=== PATIENT | male | born 1945 | race Caucasian/White ===

== ENCOUNTER 2016-08-26 17:04 | Observation (INO) | payer MEDICARE ==
[~2016-08-26] VITALS: Ht 182.9 cm; Wt 102.5 kg
[~2016-08-26 17:04] MED LIST: ADVAIR 250/501 DISK INH; DOXYCYCLINE HY100 M2 PO; HYDROCODONE-APA1 TAB PO; IPRAT-ALBUT 0.5-3 ML UPD; MEDROL DOSE PACK4 MG PO; PROAIR HFA8.5 GM INH; PROVENTIL/2.5 MG/3 M INH
[2016-08-26 17:50] VITALS: BP 135/59; BMI 30.7
[2016-08-26 19:03] LABS: BASOPHILS 0.1 % (0.0-2.0); EOSINOPHILS 1.6 % (0-7); HEMATOCRIT 37.5 % (42.0-54.0); HEMOGLOBIN 12.1 g/dL (13.5-17.5); IMMATURE GRANULOCYTES 0.4 % (0-5); LYMPHOCYTES 31.6 % (15-50); MCH 33.1 pg (26.0-34.0); MCHC 32.3 g/dL (31.0-37.0); MCV 102.5 fL (80.0-100.0); MEAN PLATELET VOLUME 10.9 fL (7.4-10.4); MONOCYTES 10.1 % (2-11); NEUTROPHILS 56.2 % (40-80); PLATELET COUNT 150 10x3/uL (130-400); RBC 3.66 10x6/uL (4.20-6.10); RDW 12.7 % (11.5-14.5); WBC 7.7 10x3/uL (4.8-10.8)
--- NOTE | 2016-08-26 19:23 | NUR ---
RECEIVED REPORT, IV-LAC-SL, O2-3L, DRESSING TO BOTTOM, BED IS LOW, SRX2, CALL LIGHT IN REACH, WILL CONTINUE TO MONITOR
[2016-08-26 19:50] LABS: ALBUMIN 3.3 g/dL (3.4-5.0); ALKALINE PHOSPHATASE 61 U/L (46-116); ALT (SGPT) 18 U/L (10-68); BILIRUBIN - TOTAL 0.23 mg/dL (0.2-1.3); CALC OSMOLALITY 284 mosm/kg (275-300); CARBON DIOXIDE 34.7 mmol/L (21.0-32.0); CHLORIDE - SERUM 103 mmol/L (98-107); CREATININE - SERUM 0.9 mg/dL (0.6-1.3); GLUCOSE 168 mg/dL (74-106); POTASSIUM - SERUM 3.6 mmol/L (3.5-5.1); PROTEIN - SERUM 6.5 g/dL (6.4-8.2); SODIUM 142 mmol/L (136-145); UREA NITROGEN 6 mg/dL (7-18); eGFR NON AFRICAN AMERICAN 89 mL/min (90-120)
[2016-08-26 20:00] VITALS: BP 119/54
[2016-08-26] MEDS ORDERED: K-DUR20 MEQ PO (21:33)
[2016-08-26] MEDS ORDERED: FUROSEMIDE40 MG PO (21:33)
[2016-08-26] MEDS ORDERED: CARDIZEM30 MG PO (21:34)
[2016-08-26] MEDS ORDERED: VITAMIN B-150 MG PO (21:35)
[2016-08-26] MEDS ORDERED: FIBERCON625 MG PO (21:36)
--- NOTE | 2016-08-27 00:27 | NUR ---
CUTLET MAKER PORK AT BEDSIDE FOR VS, NEEDS ADDRESSED. CALL LIGHT IN REACH. WILL CONT TO MONITOR.
[2016-08-27 02:00] VITALS: BP 111/54
[2016-08-27 04:00] VITALS: BP 136/78
--- NOTE | 2016-08-27 04:03 | NUR ---
SLEEPING WITH OWN C-PAP ON, BED IS LOW, SRX2, CALL LIGHT IN REACH, WILL CONTINUE TO MONTOR
--- NOTE | 2016-08-27 07:37 | NUR ---
RECEIVED PT REPORT. NO OTHER NEEDS AT THIS TIME. WILL CONTINUE PLAN OF CARE. NO OTHER NEEDS AT THIS TIME. WILL CONTINUE TO MONITOR.
[2016-08-27 08:39] VITALS: BP 122/53
--- NOTE | 2016-08-27 10:36 | NUR ---
PT IS ALERT. ASSESSMENT DONE PER FLOWSHEET. NO CO PAIN AT THIS TIME. WILL CONTINUE TO MONITOR.
[2016-08-27 12:09] VITALS: BP 138/65
[2016-08-27 13:49] VITALS: Ht 182.9 cm; Wt 102.5 kg
[2016-08-27 14:38] LABS: HEMOGLOBIN A1C 6.1 % (4.8-6.0)
[2016-08-27] MEDS ORDERED: FUROSEMIDE40 MG PO (15:15)
[2016-08-27 15:42] VITALS: BP 132/61
--- NOTE | 2016-08-28 10:48 | DS ---
PATIENT:KAREN VALLE SR :47 MEDICAL RECORD: [id number] DISCHARGE SUMMARY ADMISSION DATE: 08/26/16 DISCHARGE DATE: 08/27/16 DATE OF ADMISSION: 08/26/2016 DATE OF DISCHARGE: 08/27/2016 ADMITTING DIAGNOSES: Acute exacerbation of chronic obstructive pulmonary disease, nicotine dependence with withdrawal, anemia of unknown etiology, hyperglycemia, acute obstructive sleep apnea, congestive heart failure. HOSPITAL COURSE: This is a gentleman who was a direct admit from Dr. Alvarez's office with diagnoses as outlined above. Details are well-outlined in the history of the present illness, H&P. All events, lab procedures, diagnostic testing are well documented in the records. The patient was admitted. Cardiology consulted. Echo ordered. He was started on IV Lasix twice a day. He apparently had been out of his p.o. Lasix at home. Overall, he is improved. He is ambulating. His shortness of breath is at baseline. His leg edema has improved. He wants to go home. His proBNP 117. He had some degree of hyperglycemia when he came in. He is not diabetic. Blood sugars ranging 128-168. We did A1c, it was 6.1, none of these sugars were fasting. OTHER LABORATORY DATA: Show white count 7.7, hemoglobin 12, platelets 150, albumin is 3.3, otherwise LFTs are unremarkable. Sodium 142, potassium 3.6, chloride 103, CO2 of 34.7, BUN 6, serum creatinine 0.9. He is stable for dismissal home. We had given him a handwritten script for Lasix 40 mg p.o. b.i.d. We have been instructed him and his significant other to go straight to the pharmacy and get this filled and to be compliant with his scripts. He will follow up with Dr. Alvarez in a week. Diagnoses are the same as above. Greater than 30 minutes was spent on this discharge. TRANSINT:[id number] Voice Confirmation ID: [id number] DOCUMENT ID: [id number] Dictated By: MAYELIN GUERRERO RN I have interviewed/examined the above patient and agree with these documented findings. OMAYRA HUSSEIN DO at 1048 at 1515 CC: [id number] DICTATION DATE: 08/27/16 1548 CLAIMS ADJUSTER: 08/28/16 0307 DIS IN 08/27/16 [facility] [address] [id number]
--- NOTE | 2016-09-10 14:37 | EC ---
PATIENT:KAREN VALLE SR DATE OF SERVICE: 08/26/16 SEX: M MEDICAL RECORD: [id number] DATE OF : 47 LOCATION:D.M2 D.213 AGE OF PATIENT: 71 ADMISSION DATE: 08/26/16 REFERRING PHYSICIAN: INTERPRETING PHYSICIAN: TITO BLACKWELL MD ECHOCARDIOGRAM REPORT ECHO CHARGES 4 ECHO COMPLETE CLINICAL DIAGNOSIS: CHF ECHOCARDIOGRAPHIC MEASUREMENTS (adult normal given) AC root (d.<3.7cm) 3.8 LV Septum d (<1.2 cm> 1.5 Valve Excursion 1.7 LV Septum (systole) 1.8 Left Atria (s.<4.0cm> 3.8 LVPW d(<1.2cm) 1.6 RV (d.<2.3cm) 4.6 LVPW (sytole) 1.8 LV diastole(<5.6CM) 5.3 MV E-F(>70mm/sec) LV systole 3.2 LVOT Diameter 1.9 MV exc.(>10mm) 1.9 Est.ejection fraction (50-75%) Pericardial Effusion N DOPPLER: LVIT A 102 E 92.0 LA RVSP 25 LVOT 96 AOP1/2T Asc. Ao 147 RVOT 89 RA PA 151 AV Gradient Peak 8.7 AV Mean 4.09 AV Area 1.6 MV Gradient Peak 5.8 MV Mean 1.70 MV Area COMMENTS: Child Care: Susanne RIOS Mud Boss:1 Dr. Blackwell TAPE# PACS DATE OF SERVICE: 08/27/2016 FINDINGS: 1. Left ventricular chamber size is within normal limits. Left ventricular systolic function is normal. Overall ejection fraction estimated at 55%. 2. Left atrium, right atrium, and right ventricle chamber sizes are within normal limits. 3. Valvular structures have normal structure and motion. 4. Doppler interrogation reveals mild mitral regurgitation, mild tricuspid regurgitation, no other valvular insufficiency or stenosis and pulmonary ECHOCARDIOGRAM REPORT [id number] KAREN VALLE SR systolic pressure is normal, estimated at 25 mmHg. 5. No evidence of pericardial effusion or left ventricular thrombus. 6. Shortness of breath is not secondary to congestive heart failure. TRANSINT:[id number] Voice Confirmation ID: [id number] DOCUMENT ID: [id number] TITO BLACKWELL MD at 1437 CC: [id number] DICTATION DATE: 08/27/16 1222 MARKETING RECRUITER: 08/27/16 1454 DIS IN 08/27/[address] [facility] [address] [id number]
== END 2016-08-27 18:24 | disposition home or self-care (01) ==
LOC: D.M2 17:04 → OBSVTIME 17:05 → D.M2 08-27 18:24
PROVIDERS: Family Medicine; ADMIT Family Medicine
DX: J44.1 Chronic obstructive pulmonary disease with (acute) exacerbation (principal); I50.9 Heart failure, unspecified; F17.203 Nicotine dependence unspecified, with withdrawal; D64.9 Anemia, unspecified; R73.9 Hyperglycemia, unspecified; G47.33 Obstructive sleep apnea (adult) (pediatric)

== ENCOUNTER 2016-10-24 23:11 | Inpatient (IN) | payer MEDICARE ==
[~2016-10-24] VITALS: Ht 182.9 cm; Wt 98.0 kg
--- NOTE | ~2016-10-24 | EC ---
PATIENT:KAREN VALLE SR DATE OF SERVICE: 10/24/16 SEX: M MEDICAL RECORD: [id number] DATE OF : 47 LOCATION:D.MS Dunn220 AGE OF PATIENT: 71 ADMISSION DATE: 10/24/16 REFERRING PHYSICIAN: INTERPRETING PHYSICIAN: SANGEETA DOTSON M.D. ECHOCARDIOGRAM REPORT ECHO CHARGES 5 ECHO LIMITED CLINICAL DIAGNOSIS: CHF AND EDEMA ( LAST ECHO ON 09-08-16) ECHOCARDIOGRAPHIC MEASUREMENTS (adult normal given) AC root (d.<3.7cm) LV Septum d (<1.2 cm> 1.4 Valve Excursion LV Septum (systole) 1.6 Left Atria (s.<4.0cm> LVPW d(<1.2cm) 1.6 RV (d.<2.3cm) LVPW (sytole) 1.9 LV diastole(<5.6CM) 4.5 MV E-F(>70mm/sec) LV systole 2.6 LVOT Diameter MV exc.(>10mm) Est.ejection fraction (50-75%) Pericardial Effusion N DOPPLER: LVIT A E LA RVSP LVOT AOP1/2T Asc. Ao RVOT RA PA AV Gradient Peak AV Mean AV Area MV Gradient Peak MV Mean MV Area COMMENTS: Php Software Engineer: Susanne RIOS Curriculum Specialist:2 Dr. Dotson TAPE# PACS DATE OF SERVICE: 10/25/2016 REFERRING PHYSICIAN: Jose L Henry MD. INDICATION: CHF. This is a limited study. The previous echo was performed at the end of August. This is performed to evaluate ejection fraction. DESCRIPTION: Left ventricle demonstrates left ventricular hypertrophy. No ECHOCARDIOGRAM REPORT [id number] KAREN VALLE SR regional wall motion abnormalities are noted. His ejection fraction is 55%. There is no evidence of any ventricular dilation. Right ventricle appears normal size and function. I do not see a pericardial effusion. IMPRESSION: Left ventricular hypertrophy with preserved ejection of 55% with no wall motion abnormalities noted. TRANSINT:[id number] Voice Confirmation ID: [id number] DOCUMENT ID: [id number] SANGEETA DOTSON M.D. CC: [id number] DICTATION DATE: 10/25/16 1435 DISABILITY REPRESENTATIVE: 10/25/16 1632 ADM IN [id number] [place] [address]
--- NOTE | ~2016-10-24 | CN ---
PATIENT NAME:KAREN BIRMINGHAM MEDICAL RECORD: [id number] : 47 LOCATION:D.MS Dunn2203 ADMIT DATE: 10/24/16 ACCOUNT: [id number] CONSULTING PHYSICIAN: CASSI MORTENSEN MD REFERRING PHYSICIAN: JOSE L HENRY MD DATE OF CONSULTATION: 10/25/2016 REQUESTING PHYSICIAN: Jose L Henry MD. REASON FOR CONSULTATION: Acute exacerbation of chronic obstructive pulmonary disease and shortness of breath. HISTORY OF PRESENT ILLNESS: Mr. Birmingham is a 71-year-old gentleman who has a history of COPD and obstructive sleep apnea. According to the patient, he is sick for the last few days with worsening shortness of breath and admitted to the ER yesterday. The patient now is awake and alert, but he is very breathless. He is on BiPAP. The patient is still everyday smoker. He has cough without much sputum production. He does not hear himself wheezing. REVIEW OF SYSTEMS: Mainly in the history of present illness. PAST MEDICAL HISTORY: 1. COPD. 2. Asthma. 3. History of pneumonia. 4. History of obstructive sleep apnea, on BiPAP. 5. History of anemia. 6. Chronic hypoxic respiratory failure. PAST SURGICAL HISTORY: He had appendectomy. ALLERGIES: There are no known drug allergies. PRESENT MEDICATIONS: On [facility] was reviewed. PERSONAL AND SOCIAL HISTORY: The patient is still everyday smoker. He is a nondrinker. FAMILY HISTORY: Noncontributory. PHYSICAL EXAMINATION: GENERAL: The patient is lying comfortably in bed. He is not in acute distress. VITAL SIGNS: The blood pressure is 149/88, pulse is 88, respiration is 16, temperature is 97.2, SpO2 is 97% on BiPAP, 40% oxygen. HEENT: Conjunctivae pink, sclerae nonicteric. NECK: Supple. No JVD. CHEST: The chest excursion is minimal on both sides. There is no wheeze, no rales. HEART: Rhythm regular, normal sound, no murmur. ABDOMEN: Soft. Bowel sounds present. No hepatosplenomegaly. RECTAL: Deferred. EXTREMITIES: No cyanosis, no clubbing. There is 1+ pedal edema. SKIN: Warm, normal turgor. CENTRAL NERVOUS SYSTEM: The patient is awake and alert. There are no obvious cranial nerve abnormalities. The gait was not tested. CONSULT REPORT [id number] KAREN BIRMINGHAM CHEST RADIOGRAPH: There is hyperinflation, no acute infiltrate. LABORATORY DATA: CBC: The WBC is 11.4, hemoglobin 13.9, hematocrit 42.4, the platelet count is 154. Chemistry: Sodium 141, potassium is 4, bicarbonate is 40.3, BUN is 14, creatinine 0.9, glucose 145. ABG: The pH is 7.39, pCO2 is 60, pO2 is 76, bicarbonate is 36.3. IMPRESSION: 1. Aaxzw-zf-ixnkafk hypoxic hypercapnic respiratory failure. 2. Respiratory acidosis with compensated metabolic alkalosis. 3. Acute exacerbation of chronic obstructive pulmonary disease. 4. Tracheobronchitis. 5. Obstructive sleep apnea. 6. Leukocytosis. 7. Tobacco dependence syndrome. RECOMMENDATION: 1. Methylprednisolone IV, albuterol/ipratropium nebulizer. 2. Brovana, budesonide nebulizer. 3. Start him on Diamox. Continue Levaquin IV. Follow up on labs, chest radiograph, check the alpha-1 level, check the cardiac echo. Dr. Henry, once again, thank you for involving me in the care of Mr. Birmingham. TRANSINT:[id number] Voice Confirmation ID: [id number] DOCUMENT ID: [id number] CASSI MORTENSEN MD CC: SEKOU AVELAR MD [id number] DICTATION DATE: 10/25/16 1525 PASTER OPERATOR: 10/26/16 0138 ADM IN [facility] [address] [place] [address]
[~2016-10-24 23:11] MED LIST changes: +CARDIZEM30 MG PO; +FIBERCON625 MG PO; +FUROSEMIDE40 MG PO; +K-DUR20 MEQ PO; +VITAMIN B-150 MG PO
[2016-10-24 23:37] LABS: BASOPHILS 0.1 % (0-2); EOSINOPHILS 1.8 % (0-7); HEMATOCRIT 42.4 % (42.0-54.0); HEMOGLOBIN 13.9 g/dL (13.5-17.5); IMMATURE GRANULOCYTES 0.4 % (0-5); MCH 33.2 pg (26.0-34.0); MCHC 32.8 g/dL (31.0-37.0); MCV 101.2 fL (80.0-100.0); MEAN PLATELET VOLUME 11.2 fL (7.4-10.4); MONOCYTES 10.5 % (2-11); NEUTROPHILS 68.2 % (40-80); PLATELET COUNT 154 10x3/uL (130-400); RBC 4.19 10x6/uL (4.20-6.10); RDW 12.5 % (11.5-14.5); WBC 11.4 10x3/uL (4.8-10.8)
[2016-10-25] LABS: ALBUMIN 3.7 g/dL (3.4-5.0); ALKALINE PHOSPHATASE 91 U/L (46-116); ALT (SGPT) 30 U/L (10-68); BILIRUBIN - TOTAL 0.45 mg/dL (0.2-1.3); CALC OSMOLALITY 284 mosm/kg (275-300); CALCIUM 9.2 mg/dL (8.5-10.1); CHLORIDE - SERUM 97 mmol/L (98-107); CREATINE KINASE 65 UL (21-232); CREATININE - SERUM 0.9 mg/dL (0.6-1.3); GLUCOSE 145 mg/dL (74-106); PRO BNP 70 pg/mL (0-125); PROTEIN - SERUM 7.3 g/dL (6.4-8.2); SODIUM 141 mmol/L (136-145); UREA NITROGEN 14 mg/dL (7-18); eGFR NON AFRICAN AMERICAN 89 mL/min (90-120)
[2016-10-25 00:01] LABS: CARBON DIOXIDE 40.3 mmol/L (21.0-32.0); TROPONIN-I < 0.017 ng/mL (0.000-0.060)
--- NOTE | 2016-10-25 01:00 | NUR ---
RECEIVED PT TO FLOOR FROM ER VIA STRETCHER. BREATHING IS LABORED AND DYSPNEIC WITH MINIMAL EXERTION. RT SETTING UP BIPAP NOW. COMPLETE ASSESSMENT PER FLOWSHEET. REVIEWED HISTORY AND HOME MEDS. GAVE PT SANDWICH AND SODA. NO OTHER NEEDS. WILL REASSESS AND CONTINUE TO MONITOR.
[2016-10-25 01:42] VITALS: BP 142/70; BMI 29.3
[2016-10-25 04:00] VITALS: BP 154/79
--- NOTE | 2016-10-25 08:07 | NUR ---
AWAKE AND ALERT. ORIENTED X3. NO C/O THIS AM. LUNGS WITH WHEEZES THROUGHOUT LUNG MORFIN. WET COUGH NOTED. SKIN IS INTACT WITHOUT REDNESS. SL TO LEFT HAND IS PATENT WITHOUT REDNESS AT INSERTION SITE. UP TO BR WITH MIN ASSIST OF ONE. VOIDED CLEAR YELLOW URINE WITHOUT DIFFICULTY. SITTING UP ON SIDE OF BED EATING BREAKFAST. DENIES NEEDS.
[2016-10-25 09:04] VITALS: BP 149/88
[2016-10-25 10:40] LABS: BASOPHILS 0.2 % (0-2); EOSINOPHILS 0 % (0-7); HEMATOCRIT 42.4 % (42.0-54.0); HEMOGLOBIN 13.8 g/dL (13.5-17.5); IMMATURE GRANULOCYTES 0.3 % (0-5); LYMPHOCYTES 12.2 % (15-50); MCHC 32.5 g/dL (31.0-37.0); MCV 101.4 fL (80.0-100.0); MEAN PLATELET VOLUME 11.5 fL (7.4-10.4); MONOCYTES 0.8 % (2-11); NEUTROPHILS 86.5 % (40-80); PLATELET COUNT 140 10x3/uL (130-400); RBC 4.18 10x6/uL (4.20-6.10); RDW 12.1 % (11.5-14.5)
[2016-10-25 10:46] LABS: WBC 6.3 10x3/uL (4.8-10.8)
--- NOTE | 2016-10-25 10:46 | NUR ---
ATE ALL OF BREAKFAST. RESTING QUIETLY IN BED WITH EYES CLOSED.
[2016-10-25 11:40] VITALS: BP 131/68
[2016-10-25 12:53] VITALS: Ht 182.9 cm; Wt 98.0 kg
[2016-10-25 15:52] VITALS: BP 144/78
--- NOTE | 2016-10-25 18:39 | NUR ---
ATE ALMOST ALL OF SUPPER TRAY. NO C/O AT THIS TIME. DENIES NEEDS.
--- NOTE | 2016-10-25 19:40 | NUR ---
ASSISTED THE PATIENT TO THE RESTROOM. PATIENT WAS STABLE AND SHOWED NO SIGNS OF WEAKNESS IN HIS EXTREMITIES. PATIENT DENIES OTHER NEEDS AT THIS TIME. BED IN LOWEST POSTION AND CALL LIGHT WITHIN REACH. ENCOURAGED THE PATIENT TO CALL IF HE HAS FURTHER NEEDS.
[2016-10-25 20:00] VITALS: BP 140/71
[2016-10-26] VITALS: BP 137/69
[2016-10-26 04:00] VITALS: BP 136/65
[2016-10-26 07:00] LABS: BASOPHILS 0.1 % (0-2); EOSINOPHILS 0 % (0-7); HEMATOCRIT 43.9 % (42.0-54.0); HEMOGLOBIN 13.8 g/dL (13.5-17.5); IMMATURE GRANULOCYTES 0.5 % (0-5); LYMPHOCYTES 7.8 % (15-50); MCH 32.3 pg (26.0-34.0); MCHC 31.4 g/dL (31.0-37.0); MCV 102.8 fL (80.0-100.0); NEUTROPHILS 87.6 % (40-80); RBC 4.27 10x6/uL (4.20-6.10); RDW 12.3 % (11.5-14.5)
[2016-10-26 07:05] LABS: PLATELET COUNT 177 10x3/uL (130-400); WBC 14.4 10x3/uL (4.8-10.8)
[2016-10-26 07:23] LABS: ALBUMIN 3.5 g/dL (3.4-5.0); ANION GAP 5.1 mmol/L (8-16); BILIRUBIN - TOTAL 0.21 mg/dL (0.2-1.3); CALCIUM 9.6 mg/dL (8.5-10.1); CARBON DIOXIDE 36.5 mmol/L (21.0-32.0); POTASSIUM - SERUM 3.6 mmol/L (3.5-5.1); PROTEIN - SERUM 7.9 g/dL (6.4-8.2)
[2016-10-26 07:24] LABS: CREATININE - SERUM 1.2 mg/dL (0.6-1.3)
[2016-10-26 07:32] VITALS: BP 121/71
--- NOTE | 2016-10-26 07:59 | NUR ---
AWAKE AND ALERT. ORIENTED X3. NO C/O THIS AM. WANTS TO GO HOME. LUNGS WITH WHEEZES THROUGHOUT AND DIMINISHED. PRODUCTIVE COUGH NOTED WITH CLEAR YELLOWISH SPUTUM. SKIN IS INTACT WITHOUT REDNESS EXCEPT SMALL WOUND TO RIGHT BUTTOCK WHICH HAS A DRY INTACT DRESSING IN PLACE. SL TO LEFT HAND PATENT WITHOUT REDNESS AT INSERTION SITE. DENIES NEEDS AT THIS TIME.
--- NOTE | 2016-10-26 10:17 | NUR ---
UP IN HALLWAY PER SELF. VERY ANXIOUS TO GO HOME.
[2016-10-26 11:20] VITALS: BP 116/55
--- NOTE | 2016-10-26 12:15 | NUR ---
LUNCH SERVED IN ROOM. ATE ALL OF MEAL. DENIES NEEDS. REQUESTED AND GIVEN A CUP OF COFFEE.
[2016-10-26 15:26] VITALS: BP 125/67
--- NOTE | 2016-10-26 15:53 | NUR ---
RESTING QUIETLY IN BED. NO C/O VOICED.
--- NOTE | 2016-10-26 16:21 | NUR ---
DRESSING TO RIGHT BUTTOCK CHANGED. WOUND IS CLEAN AND NON ODOROUS WITHOUT SIGNS OF INFECTION. APPROXIMATELY 2 INCHES DEEP AND LESS THAN 1 CM WIDE.
--- NOTE | 2016-10-26 18:04 | NUR ---
ATE ALL OF SUPPER. DENIES NEEDS. NO CHANGES NOTED.
--- NOTE | 2016-10-26 19:53 | NUR ---
BROUGHT PATIENT COFFEE PER HIS REQUEST. PATIENT DENIES OTHER NEEDS AT THIS TIME AND SHOWS NO SIGNS OF VISIBLE DISTRESS. PATIENT'S BED IN LOWEST POSITION AND CALL LIGHT WITHIN REACH. ENCOURAGED THE PATIENT TO CALL IF HE HAS FURTHER NEEDS.
[2016-10-26 20:00] VITALS: BP 149/58
[2016-10-27] VITALS: BP 132/65
[2016-10-27 04:00] VITALS: BP 139/58
[2016-10-27 05:29] LABS: BASOPHILS 0.1 % (0-2); EOSINOPHILS 0.1 % (0-7); HEMATOCRIT 40.1 % (42.0-54.0); HEMOGLOBIN 12.9 g/dL (13.5-17.5); IMMATURE GRANULOCYTES 0.9 % (0-5); LYMPHOCYTES 9.1 % (15-50); MCH 32.7 pg (26.0-34.0); MCHC 32.2 g/dL (31.0-37.0); MCV 101.5 fL (80.0-100.0); MEAN PLATELET VOLUME 11.8 fL (7.4-10.4); MONOCYTES 8.3 % (2-11); NEUTROPHILS 81.5 % (40-80); PLATELET COUNT 156 10x3/uL (130-400); RBC 3.95 10x6/uL (4.20-6.10); RDW 12.2 % (11.5-14.5)
[2016-10-27 05:49] LABS: ALBUMIN 3.1 g/dL (3.4-5.0); ALKALINE PHOSPHATASE 74 U/L (46-116); ALT (SGPT) 33 U/L (10-68); CALC OSMOLALITY 292 mosm/kg (275-300); CALCIUM 8.9 mg/dL (8.5-10.1); CARBON DIOXIDE 36.5 mmol/L (21.0-32.0); CHLORIDE - SERUM 103 mmol/L (98-107); GLUCOSE 210 mg/dL (74-106); POTASSIUM - SERUM 3.8 mmol/L (3.5-5.1); PROTEIN - SERUM 6.3 g/dL (6.4-8.2); SODIUM 141 mmol/L (136-145); UREA NITROGEN 29 mg/dL (7-18); eGFR NON AFRICAN AMERICAN 78 mL/min (90-120)
--- NOTE | 2016-10-27 07:51 | NUR ---
AWAKE AND ALERT. ORIENTED X3. NO C/O THIS AM. LUNGS HAVE CRACKLES AND WHEEZES THROUGHOUT LUNG MORFIN, PRODUCTIVE COUGH NOTED. SKIN IS INTACT WITHOUT REDNESS EXCEPT WOUND TO RIGHT BUTTOCK WHICH HAS A DRY INTACT DRESSING IN PLACE. SL TO LEFT HAND PATENT WITHOUT REDNESS AT INSERTION SITE. DENIES NEEDS.
[2016-10-27 09:06] VITALS: BP 138/60
--- NOTE | 2016-10-27 10:18 | NUR ---
ATE ALL OF BREAKFAST. DENIES NEEDS. RESTING QUIETLY IN BED.
--- NOTE | 2016-10-27 11:30 | NUR ---
UP TO SHOWER WITH ASSIST OF SIGNIFICANT OTHER. DRESSING TO RIGHT BUTTOCK CHANGED WELL.
[2016-10-27 11:48] VITALS: BP 121/61
--- NOTE | 2016-10-27 13:00 | NUR ---
ATE ALL OF LUNCH. DENIES NEEDS.
--- NOTE | 2016-10-27 14:45 | NUR ---
REQUESTED MORE FOOD. GIVEN PB AND GHRAMH CRACKERS. WILL MONITOR.
[2016-10-27 16:44] VITALS: BP 140/64
--- NOTE | 2016-10-27 17:14 | NUR ---
SITTING UP ON SIDE OF BED EATING. NO C/O AT THIS TIME. NO CHANGES NOTED. DENIES NEEDS.
[2016-10-27 20:00] VITALS: BP 113/60
--- NOTE | 2016-10-27 20:48 | NUR ---
PATIENT RESTING IN BED AND DENIES NEEDS AT THIS TIME. ADMINISTERED MEDS PER ORDERS. BED IN LOWEST POSITION AND CALL LIGHT WITHIN REACH. ENCOURAGED THE PATIENT TO CALL IF HE HAS NEEDS.
[2016-10-28 04:00] VITALS: BP 133/65
[2016-10-28 05:25] LABS: BASOPHILS 0.2 % (0-2); EOSINOPHILS 0 % (0-7); HEMATOCRIT 42.2 % (42.0-54.0); HEMOGLOBIN 13.8 g/dL (13.5-17.5); IMMATURE GRANULOCYTES 2.8 % (0-5); LYMPHOCYTES 8.3 % (15-50); MCH 33.4 pg (26.0-34.0); MCHC 32.7 g/dL (31.0-37.0); MCV 102.2 fL (80.0-100.0); MEAN PLATELET VOLUME 11.1 fL (7.4-10.4); MONOCYTES 11.5 % (2-11); NEUTROPHILS 77.2 % (40-80); PLATELET COUNT 150 10x3/uL (130-400); RBC 4.13 10x6/uL (4.20-6.10); RDW 12.2 % (11.5-14.5)
[2016-10-28 05:57] LABS: ALBUMIN 3.1 g/dL (3.4-5.0); ANION GAP 5.2 mmol/L (8-16); BILIRUBIN - TOTAL 0.18 mg/dL (0.2-1.3); CALCIUM 9.2 mg/dL (8.5-10.1); CARBON DIOXIDE 35.9 mmol/L (21.0-32.0); CREATININE - SERUM 1.1 mg/dL (0.6-1.3); POTASSIUM - SERUM 4.1 mmol/L (3.5-5.1); PROTEIN - SERUM 6.8 g/dL (6.4-8.2)
--- NOTE | 2016-10-28 07:35 | NUR ---
PATIENT IS AWAKE AND ALERT, SITTING UP ON THE SIDE OF HIS BED RECEIVING HIS BREATHING TREATMENT VIA MASK WITH VAPOR ACTIVE. HE HAS THE PALM OF LEFT HAND ON BED, RIGHT PALM ON HIS LEFT KNEE, HEAD HUNG. WHEN ASKED IF HE HAS ANY NEEDS, HE SHOOK HEAD. CALL LIGHT IS WITHIN HIS REACH. DOOR LEFT OPEN.
[2016-10-28 08:08] VITALS: BP 130/79
[2016-10-28] MEDS ORDERED: IPRAT-ALBUT 0.5-3 ML UPD (09:38)
[2016-10-28] MEDS ORDERED: LEVAQUIN750 MG PO (09:38)
[2016-10-28] MEDS ORDERED: BROVANA15 MCG/2 M INH (09:38)
[2016-10-28] MEDS ORDERED: PREDNISONE10 MG PO (09:39)
[2016-10-28] MEDS ORDERED: PULMICORT0.5 MG/21 UPD (09:39)
[2016-10-28] MEDS ORDERED: FLORAJEN3 CAPS460 MG PO (09:39)
[2016-10-28] MEDS ORDERED: DIAMOX250 MG PO (09:41)
[2016-10-28] MEDS ORDERED: DAKIN'S 0.125%480 M1 TOPICAL (09:42)
[2016-10-28 11:27] VITALS: BP 134/76
--- NOTE | 2016-10-28 12:57 | NUR ---
* Is the patient Alert and Oriented? Yes 0 * PCP Dr. Alvarez 0 * Pharmacy [facility] 0 * Preadmission Environment Home with Family 0 * ADLs Independent 0 * Equipment Nebulizer Oxygen Rolling Walker 0 * List name and contact numbers for known caregivers / representatives who currently or will assist patient after discharge: Kendell Peters 0 * Additional services required to return to the preadmission environment? Yes 0 * Can the patient safely return to the preadmission environment? Yes 0 * Has this patient been hospitalized within the prior 30 days at any hospital? No
--- NOTE | 2016-10-28 13:10 | NUR ---
10/28/2016 13:10 DCP: Discharge Planning Patient Name: KAREN VALLE Admission Status: ER Accout number: [id number] Admission Date: 10-24-2016 : 1945 Admission Diagnosis:CHRONIC OBSTRUCTIVE PULMONARY DISEASE W (ACUTE) EXACERB Attending: PRASHANT Current LOS: 4 Anticipated DC Date: 10-28-2016 Planned Disposition: Home Primary Insurance: [employer] CHOICE PPO MCR ADVANT Discharge Planning Comments: DC order rec'd. CM met with patient to assess dc plans/needs. Patient states he lives at home with his fianc Lorraine. He has a walker, nebulizer & home O2. He states he has had home health services in the past. He is refusing home health services at discharge. He & Lorraine state they can take care of his wound care at home & his medications. Lorraine states she has provided his wound care for 2 years. Anticipate dc this afternoon. Occupational Health And Safety Officer: Gayathri Dowling
--- NOTE | 2016-10-28 13:16 | NUR ---
DISCUSSED DISCHARGE INSTRUCTIONS WITH PATIENT AND HIS SPOUSE. SHE STATES THAT SHE HAS BEEN CHANGING HIS DRESSING SINCE [place]. DISCUSSED MEDICATIONS AND FOLLOW UP APTS. HE VOICES UNDERSTANDING OF DIECTIONS. SPOUSE HAS O2 IN THE CAR FOR TRANSPORTATION HOME.
== END 2016-10-28 13:20 | disposition home or self-care (01) | DRG 191 ==
LOC: D.ER 23:11 → D.MS 23:56
PROVIDERS: Emergency Medicine; ADMIT Emergency Medicine
DX: J44.1 Chronic obstructive pulmonary disease with (acute) exacerbation (principal); F17.203 Nicotine dependence unspecified, with withdrawal; R09.02 Hypoxemia; Z99.81 Dependence on supplemental oxygen; G47.33 Obstructive sleep apnea (adult) (pediatric); D64.9 Anemia, unspecified; I50.9 Heart failure, unspecified; J44.0 Chronic obstructive pulmonary disease with (acute) lower respiratory infection

== ENCOUNTER 2016-11-19 03:05 | Inpatient (IN) | payer MEDICARE ==
[~2016-11-19] VITALS: Ht 182.9 cm; Wt 102.3 kg
[~2016-11-19 03:05] MED LIST changes: +BROVANA15 MCG/2 M INH; +DAKIN'S 0.125%480 M1 TOPICAL; +DIAMOX250 MG PO; +FLORAJEN3 CAPS460 MG PO; +LEVAQUIN750 MG PO; +PREDNISONE10 MG PO; +PULMICORT0.5 MG/21 UPD
[2016-11-19 03:53] LABS: BASOPHILS 0.2 % (0-2); EOSINOPHILS 2.9 % (0-7); HEMATOCRIT 37.5 % (42.0-54.0); HEMOGLOBIN 12.3 g/dL (13.5-17.5); IMMATURE GRANULOCYTES 0.4 % (0-5); LYMPHOCYTES 11.7 % (15-50); MCH 33.2 pg (26.0-34.0); MCHC 32.8 g/dL (31.0-37.0); MCV 101.1 fL (80.0-100.0); MEAN PLATELET VOLUME 10.7 fL (7.4-10.4); MONOCYTES 11.6 % (2-11); NEUTROPHILS 73.2 % (40-80); RBC 3.71 10x6/uL (4.20-6.10); RDW 12.4 % (11.5-14.5); WBC 11.2 10x3/uL (4.8-10.8)
[2016-11-19 03:55] LABS: PLATELET COUNT 202 10x3/uL (130-400)
[2016-11-19 04:09] LABS: ALBUMIN 2.8 g/dL (3.4-5.0); ALKALINE PHOSPHATASE 74 U/L (46-116); ALT (SGPT) 24 U/L (10-68); BILIRUBIN - TOTAL 0.34 mg/dL (0.2-1.3); CALC OSMOLALITY 275 mosm/kg (275-300); CALCIUM 9.3 mg/dL (8.5-10.1); CARBON DIOXIDE 33.5 mmol/L (21.0-32.0); CHLORIDE - SERUM 98 mmol/L (98-107); CREATININE - SERUM 1.1 mg/dL (0.6-1.3); GLUCOSE 177 mg/dL (74-106); POTASSIUM - SERUM 3.9 mmol/L (3.5-5.1); SODIUM 136 mmol/L (136-145); UREA NITROGEN 12 mg/dL (7-18); eGFR NON AFRICAN AMERICAN 70 mL/min (90-120)
[2016-11-19 04:21] LABS: CREATINE KINASE 41 UL (21-232); PRO BNP 60 pg/mL (0-125)
[2016-11-19 04:24] LABS: TROPONIN-I < 0.017 ng/mL (0.000-0.060)
[2016-11-19 04:26] LABS: APPEARANCE CLEAR (CLEAR); BILIRUBIN NEGATIVE (NEGATIVE); COLOR YELLOW (YELLOW); GLUCOSE NEGATIVE (NEGATIVE); KETONE NEGATIVE (NEGATIVE); LEUKOCYTE ESTERASE NEGATIVE (NEGATIVE); NITRITE NEGATIVE (NEGATIVE); PROTEIN TRACE mg/dL (NEGATIVE); UROBILINOGEN NORMAL (NORMAL)
--- NOTE | 2016-11-19 08:01 | NUR ---
RECEIVED PATIENT VIA GERNY AT THIS TIME. PATIENT AMBULATED TO BED. ALERT/ORIENTED. NON PRODUCTIVE COUGH. RESP EVEN AND UNLABORED ON O2 @ 2.5. REQUESTING COFFEE AT THIS TIME. NO DISTRESS.
[2016-11-19] MEDS ORDERED: PROAIR HFA8.5 GM INH (08:08)
[2016-11-19 08:15] VITALS: BP 117/91
[2016-11-19 08:35] VITALS: BP 117/91; BMI 29.9
--- NOTE | 2016-11-19 10:39 | NUR ---
ATTEMPTED TO CALL NUMBER ON CHART FOR [facility] TO REQUEST THAT SHE BRING PATIENTS CPAP MACHINE TO FACILITY AT THIS TIME. NO ANSWER ON NUMBER PROVIDED. AUTOMATIC VOICE MAIL NOT SET UP AT THIS TIME PER MESSAGE ON PHONE.
[2016-11-19 12:04] VITALS: BP 135/64
--- NOTE | 2016-11-19 13:01 | NUR ---
MEDICATED FOR PAIN AT THIS TIME. NO DISTRESS.
--- NOTE | 2016-11-19 13:04 | NUR ---
PATIENTS GIRLFRIEND BROUGHT CPAP MACHINE FROM HOME AND HAS IS SET UP IN ROOM.
--- NOTE | 2016-11-19 16:14 | NUR ---
RATIONALE FOR SCD'S EXPLAINED. REFUSES SCD'S
--- NOTE | 2016-11-19 20:53 | NUR ---
HS MEDS GIVEN WITH FRESH ICE WATER, NORCO 1 TAB GIVEN FOR C/O GENERALIZED PAIN, RATES PAIN AT A 7 ON PAIN SCALE. WILL CONT TO MONITOR.
[2016-11-19 22:09] VITALS: BP 120/63
[2016-11-20 00:45] VITALS: BP 118/61
--- NOTE | 2016-11-20 01:33 | NUR ---
RESTING WITH EYES CLOSED, RESPERATIONS EVEN, NO S/S DISTRESS NOTED.
[2016-11-20 05:13] VITALS: BP 115/67
[2016-11-20 06:02] LABS: BASOPHILS 0.1 % (0-2); EOSINOPHILS 0 % (0-7); HEMATOCRIT 36.4 % (42.0-54.0); IMMATURE GRANULOCYTES 0.8 % (0-5); LYMPHOCYTES 8.8 % (15-50); MCH 32.5 pg (26.0-34.0); MEAN PLATELET VOLUME 10.7 fL (7.4-10.4); NEUTROPHILS 87.3 % (40-80); PLATELET COUNT 217 10x3/uL (130-400); RBC 3.69 10x6/uL (4.20-6.10); RDW 12.2 % (11.5-14.5); WBC 8.8 10x3/uL (4.8-10.8)
[2016-11-20 06:11] LABS: MCV 98.6 fL (80.0-100.0)
[2016-11-20 06:36] LABS: ANION GAP 10.1 mmol/L (8-16); CALCIUM 9.5 mg/dL (8.5-10.1); CARBON DIOXIDE 31.1 mmol/L (21.0-32.0); CREATININE - SERUM 1.2 mg/dL (0.6-1.3); PHOSPHOROUS 3.1 mg/dL (2.5-4.9); POTASSIUM - SERUM 4.2 mmol/L (3.5-5.1)
[2016-11-20 08:19] VITALS: BP 115/75
[2016-11-20 12:18] VITALS: BP 110/63
[2016-11-20 14:13] VITALS: Ht 182.9 cm; Wt 102.3 kg
--- NOTE | 2016-11-20 15:20 | NUR ---
Patient Name: KAREN VALLE Admission Status: ER Accout number: [id number] Admission Date: 11-19-2016 : 1945 Admission Diagnosis: Attending: LISET Current LOS: 1 Anticipated DC Date: Planned Disposition: Home Primary Insurance: [employer] CHOICE PPO MCR ADVANT Discharge Planning Comments: * Is the patient Alert and Oriented? Yes 0 * How many steps to enter\exit or inside your home? NONE 0 * PCP DR. AVELAR 0 * Pharmacy [facility] 0 * Preadmission Environment Home with Family 0 * ADLs Independent 0 * Equipment Nebulizer Oxygen Rolling Walker 0 * Other Equipment HOME OXYGEN ONLY UNKNOWN MEDICAL EQUIPMENT PROVIDER 0 * List name and contact numbers for known caregivers / representatives who currently or will assist patient after discharge: JOSE ANTONIOIMTZY WINTERS, 0 * Community resources currently utilized None 0 * Please name any agencies selected above. NONE 0 * Additional services required to return to the preadmission environment? No 0 * Can the patient safely return to the preadmission environment? Yes 0 * Has this patient been hospitalized within the prior 30 days at any hospital? Yes 0 CM MET WITH PT IN ROOM TO DISCUSS DISCHARGE PLANNING AND NEEDS. PT REPORTS LIVING AT HOME INDEPENDENTLY WITH HIS FIKIA. PT REPORTS HAVING ALL NEEDED MEDICAL EQUIPMENT AND CANNOT REMEMBER HIS PROVIDER NAME. PT HAS NO OUTSIDE SERVICES ASSISTING IN THE HOME AND STATES SHE DOES NOT WANT THEM PEOPLE IN HIS HOME. CM DISCUSSED AVAILABILITY OF HOME HEALTH, REHAB SERVICES AND MEDICAL EQUIPMENT. PT DENIES DISCHARGE NEEDS AND AGAIN STATED HE DID NOT WANT THEM PEOPLE IN HIS HOME; PT FEELS HIS FIANCE CAN PROVIDE WHATEVER HELP HE NEEDS, REPORTS SHE WILL PICK HIM UP FOR DISCHARGE HOME. IMPORTANT MESSAGE FROM MEDICARE PROVIDED AND EXPLAINED. PT PLANS TO DISCHARGE HOME WITH [facility], DENIES ALL DISCHARGE NEEDS. Retail Pharmacist: Lewis Caputo
[2016-11-20 15:47] VITALS: BP 124/70
--- NOTE | 2016-11-20 17:13 | NUR ---
PT IV LEAKING AROUND SITE. ORIGNAL IV REMOVED WITH CATHETER INTACT. 20 GUAGE IV INSERTED INTO RIGHT FOREARM X1 ATTEMPT. IV SITE DRESSED AND DATED. ABX RESTARTED WITH NS KVO. DENIES PAIN AT IV SITE. WILL CONTINUE TO MONTIOR.
--- NOTE | 2016-11-20 19:35 | NUR ---
ASSESSMENT COMPLETE, A&O, SITTING UP ON SIDE OF BED, 02 AT 3 LITERS VIA NC, NO S/S DISTRESS NOTED. IV TO RIGHT FOREARM WITH NS AT KVO, SITE CLEAN AND DRY. PT DENIES PAIN OR NEEDS, FAMILY AT BED SIDE, BED LOW, CL IN REACH.
--- NOTE | 2016-11-20 21:44 | NUR ---
HS MEDS GIVEN, PT DENIES PAIN OR NEEDS, BED LOW, CL IN REACH, WILL CONT TO MONITOR.
[2016-11-20 22:32] VITALS: BP 110/63
[2016-11-21 00:42] VITALS: BP 130/69
--- NOTE | 2016-11-21 03:45 | NUR ---
MANAGER SERVICES AT BEDSIDE TO OBTAIN VITALS, CALL LIGHT IN REACH. WILL CONTINUE WITH PLAN OF CARE.
[2016-11-21 06:07] LABS: BASOPHILS 0.1 % (0-2); EOSINOPHILS 0 % (0-7); HEMATOCRIT 34.3 % (42.0-54.0); HEMOGLOBIN 11.4 g/dL (13.5-17.5); IMMATURE GRANULOCYTES 1.3 % (0-5); LYMPHOCYTES 7.8 % (15-50); MCH 32.5 pg (26.0-34.0); MCHC 33.2 g/dL (31.0-37.0); MCV 97.7 fL (80.0-100.0); MEAN PLATELET VOLUME 10.6 fL (7.4-10.4); NEUTROPHILS 84.8 % (40-80); PLATELET COUNT 228 10x3/uL (130-400); RBC 3.51 10x6/uL (4.20-6.10); RDW 12.1 % (11.5-14.5)
[2016-11-21 06:10] VITALS: BP 106/54
[2016-11-21 06:34] LABS: WBC 12.7 10x3/uL (4.8-10.8)
[2016-11-21 06:35] LABS: ANION GAP 12.2 mmol/L (8-16); CALCIUM 9.2 mg/dL (8.5-10.1); CARBON DIOXIDE 32.7 mmol/L (21.0-32.0); CREATININE - SERUM 1.2 mg/dL (0.6-1.3); POTASSIUM - SERUM 3.9 mmol/L (3.5-5.1)
--- NOTE | 2016-11-21 07:48 | NUR ---
AM ROUNDS - PT UP AMBULATING IN ROOM. O2 ON PT AT 3 L NC. SALINE LOCKED ON RIGHT FOREARM. BED IN LOWEST POSTION, CALL LIGHT IN REACH, PT DENIES NEEDS AT THIS TIME. WILL CONTINUE TO MONITOR.
[2016-11-21 08:00] VITALS: BP 116/62
--- NOTE | 2016-11-21 11:02 | NUR ---
PT SITTING ON EDGE OF BED. EXPRESSES AGITATION TOWARD SITUATION. ENSURED NEEDS WERE MET AND EXPRESSED EMPATHY TOWARD PT SITUATION. DENIES OTHER NEEDS AT THIS TIME. WILL CONTINUE TO MONITOR.
[2016-11-21 12:07] VITALS: BP 122/54
--- NOTE | 2016-11-21 12:16 | NUR ---
IV ABX COMPLETE, NS RUNNING AT [facility]. PT SALINE LOCKED FOR LUNCH. DENIES FURTHER NEEDS AT THIS TIME, WILL CONTINUE TO MONITOR.
[2016-11-21 15:49] VITALS: BP 108/48
--- NOTE | 2016-11-21 17:54 | NUR ---
PT UP TO CHAIR. DENIES NEEDS AT THIS TIME. NC ON PT AT 3L. DENIES ANY PAIN. WILL CONTINUE TO MONITOR.
[2016-11-21 19:00] VITALS: BP 116/70
[2016-11-22 04:00] VITALS: BP 115/53
--- NOTE | 2016-11-22 04:28 | NUR ---
ASSESSED AT THE BEGINNING OF THE SHIFT. PT IS ALERT AND ORIENTED, ABLE TO VERBALIZE NEEDS. HE IS ALSO UP AD MIN AND HAS SET UP IN THE CHAIR AT THE BEGINNING AND NOW LATER IN THE SHIFT TO GET OUT OF THE BED. HE IS STILL WEARING O2 AT 3 LITERS AND HIS COUGH IS PRODUCTIVE. THE BED IS LOW, RAILS UP X'S 2 WITH THE CALL LIGHT AT HAND.
[2016-11-22 06:27] LABS: BASOPHILS 0.2 % (0-2); EOSINOPHILS 0 % (0-7); HEMATOCRIT 35.8 % (42.0-54.0); HEMOGLOBIN 11.9 g/dL (13.5-17.5); IMMATURE GRANULOCYTES 2.5 % (0-5); LYMPHOCYTES 11.8 % (15-50); MCH 32.5 pg (26.0-34.0); MCHC 33.2 g/dL (31.0-37.0); MCV 97.8 fL (80.0-100.0); MEAN PLATELET VOLUME 10.5 fL (7.4-10.4); MONOCYTES 9.3 % (2-11); NEUTROPHILS 76.2 % (40-80); PLATELET COUNT 236 10x3/uL (130-400); RBC 3.66 10x6/uL (4.20-6.10); RDW 12.1 % (11.5-14.5); WBC 12.5 10x3/uL (4.8-10.8)
[2016-11-22 07:36] LABS: ANION GAP 10.4 mmol/L (8-16); CALCIUM 9.4 mg/dL (8.5-10.1); CARBON DIOXIDE 33.6 mmol/L (21.0-32.0); CREATININE - SERUM 1.2 mg/dL (0.6-1.3); MAGNESIUM - SERUM 1.9 mg/dL (1.8-2.4); PHOSPHOROUS 3.1 mg/dL (2.5-4.9)
--- NOTE | 2016-11-22 07:37 | NUR ---
PATIENT ALERT/ORIENT X4. CALL LIGHT WITHIN REACH. OXYGEN ON AT 3L PER N/C RAC IS SALINE LOCKED.
[2016-11-22 08:30] VITALS: BP 120/58
--- NOTE | 2016-11-22 09:45 | NUR ---
IV SITE TO RIGHT AC. ANTIBIOTICS HUNG.
--- NOTE | 2016-11-22 11:00 | NUR ---
PATIENT IS ON ELELCTROLITE PROTOCOL. MAG AND K LEVELS WNR.
[2016-11-22 11:57] VITALS: BP 120/58
--- NOTE | 2016-11-22 12:48 | NUR ---
Nutrition follow-up: Diet: Low sodium PO intake 75-100% of meals Labs reviewed +BM RDN following.
--- NOTE | 2016-11-22 13:38 | NUR ---
PATIENT GETTING UP BY SELF TO GO INTO BATHROOM. GAIT STEADY.
[2016-11-22 15:51] VITALS: BP 114/64
--- NOTE | 2016-11-22 17:14 | NUR ---
PATIENT SITTING UP AT THE SIDE OF THE CHAIR TO EAT SUPPER. IV DISCONNECTED AFTER ANTIBIOTIC.
[2016-11-22 19:00] VITALS: BP 115/59
--- NOTE | 2016-11-22 21:35 | NUR ---
HS MEDS GIVEN WITH FRESH ICE WATER, CUP OF COFFEE ALSO GIVEN AT PT REQUEST.
--- NOTE | 2016-11-23 02:52 | NUR ---
COLA AND SALTINE CRACKERS GIVEN AT PT REQUEST.
[2016-11-23 04:00] VITALS: BP 105/66
--- NOTE | 2016-11-23 08:00 | NUR ---
CALLED DR. LEHMAN AND INFORMED HER ABOUT PT'S BLOOD SUGAR OF 423 THIS AM, ALSO INFOMRED HER THAT PT IS ON THE LOW RESISTANCE S/S. DR. LEHMAN STATED TO GIVE HIM THE 12UNITS THAT IT CALL FOR AND RECHECK HIS BLOOD SUGAR IN 1HR AND USE SLIDING SCALE AGAIN IF STILL HIGH.
--- NOTE | 2016-11-23 08:28 | NUR ---
ADMINISTERED MORNING MEDICATIONS, PT UP TO CHAIR EATING BREAKFAST. PROVIDED TEACHING ABOUT USING SWEET AND LOW INSTEAD OF SUGAR SINCE BLOOD SUGAR WAS 423 THIS AM. PT VERBALIZED UNDERSTANDING. 12 UNITS OF HUMULIN GIVEN PER S/S. IVBP OF CEFEPIME STEFANIA, NAD NOTED, WILL CONTINUE TO MONITOR.
[2016-11-23 08:54] VITALS: BP 106/61
--- NOTE | 2016-11-23 10:37 | NUR ---
ADMINISTERED 12 UNIT OF HUMULIN FOR BLOOD SUGAR OF 438, PER SLIDNG SCALE, WILL NOTIFY DR. LEHMAN. PT STATED " I IF THIS IS GOING TO KEEP ME FROM GOING HOME, NOBODY IS GOING TO BE HAPPY, BECAUSE I WAS FIND YESTERDAY". INFOMRED PT THAT WE NEED TO KEEP HIS BLOOD SUGAR UNDER CONTROL, AND THAT CANNOT HAVE REGULAR SUGAR WITH HIS COFFEE, ESPECIALLY SINCE HE ADDS FOUR PACKS.
--- NOTE | 2016-11-23 11:40 | NUR ---
INFORMED DR. LEHMAN ABOUT BLOOD SUGAR STILL BEING 370 AFTER 12 UNITS OF HUMULIN R GIVEN ABOUT AN HOUR AGO. DR. LEHMAN STATE TO PUT PT ON THE INTERMITTEN SLIDING SCALE AND TREAT CURRENT BLOOD SUGAR. NEW ORDER PUT IN. WILL ADMINISTER INSULIN PER SLIDING SCALE.
[2016-11-23 12:00] VITALS: BP 124/64
[2016-11-23] MEDS ORDERED: HYDROCODONE-APA1 TAB PO (13:51)
[2016-11-23] MEDS ORDERED: BENZONATATE200 MG PO (13:51)
[2016-11-23] MEDS ORDERED: DALIRESP500 MCG PO (13:51)
[2016-11-23] MEDS ORDERED: PREDNISONE20 MG PO (13:51)
[2016-11-23] MEDS ORDERED: PULMICORT0.5 MG/21 UPD (13:51)
--- NOTE | 2016-11-23 14:42 | NUR ---
PT UP TO SIDE OF BED, STATES " I AM READY TO GO". INFOMRED HIM THAT WE STILL HAVE TO GET PAPER WORK READY. PT DENIES ANY OTHER NEEDS AT THIS TIME. FAMILY AT BEDSIDE, NAD NOTED, CALL LIGHT IN REACH, WILL CONTINUE TO MONITOR.
--- NOTE | 2016-11-23 15:53 | NUR ---
PROVIDED VERBAL AND WRITTEN DISCHARGE INSTRUCTIONS TO PT AND FAMILY, BOTH VERBALIZED UNDERSTANDING REGARDING INSTRUCTIONS. ASKED PT IF THE DOCTOR HAD GIVEN HIM A SCRIPT FOR NORCO. PT STATED " NO, BUT I STILL HAVE SOME PAIN PILLS AT HOME AND I CAN GET ANOTHER REFILL ON IT". D/C RT AC IV, TIP INTACT, PT READY FOR WHEELCHAIR. 0878- PT WHEELED DOWN TO FRONT ENTRANCED, ACCOMPANIED BY FAMILY, NAD NOTED.
== END 2016-11-23 15:58 | disposition home or self-care (01) | DRG 189 ==
LOC: D.ER 03:05 → D.M2 06:30
PROVIDERS: Emergency Medicine; Internal Medicine Pulmonary Disease; ADMIT Family Medicine
DX: J96.02 Acute respiratory failure with hypercapnia (principal); J15.9 Unspecified bacterial pneumonia; I50.33 Acute on chronic diastolic (congestive) heart failure; J44.1 Chronic obstructive pulmonary disease with (acute) exacerbation; J44.0 Chronic obstructive pulmonary disease with (acute) lower respiratory infection; F17.203 Nicotine dependence unspecified, with withdrawal; J96.01 Acute respiratory failure with hypoxia; Z99.81 Dependence on supplemental oxygen; D64.9 Anemia, unspecified; G47.33 Obstructive sleep apnea (adult) (pediatric); G89.29 Other chronic pain

== ENCOUNTER → 2017-02-11 12:37 | Outpatient (CLI) | payer MEDICARE ==
[2016-11-20 14:13] VITALS: BMI 29.8
[~2017-02-11 12:37] MED LIST changes: +BENZONATATE200 MG PO; +DALIRESP500 MCG PO; +PREDNISONE20 MG PO
== END | disposition home or self-care (01) ==
LOC: D.RT 02-06 11:00
DX: R06.02 Shortness of breath (principal)

== ENCOUNTER 2017-05-18 17:38 | Inpatient (IN) | payer MEDICARE ==
[~2017-05-18] VITALS: Ht 182.9 cm; Wt 106.5 kg
[2017-05-18 18:14] LABS: BASOPHILS 0.1 % (0-2); EOSINOPHILS 0.3 % (0-7); HEMATOCRIT 44.3 % (42.0-54.0); HEMOGLOBIN 14.4 g/dL (13.5-17.5); IMMATURE GRANULOCYTES 0.4 % (0-5); LYMPHOCYTES 9.2 % (15-50); MCH 32.2 pg (26.0-34.0); MCHC 32.5 g/dL (31.0-37.0); MCV 99.1 fL (80.0-100.0); MEAN PLATELET VOLUME 11.6 fL (7.4-10.4); PLATELET COUNT 143 10x3/uL (130-400); RBC 4.47 10x6/uL (4.20-6.10); RDW 12.9 % (11.5-14.5)
[2017-05-18 18:30] LABS: ALBUMIN 3.5 g/dL (3.4-5.0); ALKALINE PHOSPHATASE 79 U/L (46-116); ALT (SGPT) 15 U/L (10-68); BILIRUBIN - TOTAL 0.58 mg/dL (0.2-1.3); CALC OSMOLALITY 272 mosm/kg (275-300); CALCIUM 8.8 mg/dL (8.5-10.1); CARBON DIOXIDE 32.8 mmol/L (21.0-32.0); CHLORIDE - SERUM 97 mmol/L (98-107); CREATININE - SERUM 0.9 mg/dL (0.6-1.3); GLUCOSE 145 mg/dL (74-106); POTASSIUM - SERUM 4.6 mmol/L (3.5-5.1); PROTEIN - SERUM 7.5 g/dL (6.4-8.2); SODIUM 135 mmol/L (136-145); UREA NITROGEN 13 mg/dL (7-18); eGFR NON AFRICAN AMERICAN 89 mL/min (90-120)
--- NOTE | 2017-05-18 20:08 | NUR ---
ADMIT TO ROOM 2130 FROM ER AT 1950. ALERT/ORIENTED. O2 IN PLACE AND PT TO BE PLACED ON BIPAP. RT ALREADY IN ROOM. AT BEDSIDE. ADMISSION ASSESSMENT AND HISTORY COMPLETED. HOME MEDS REVIEWED. PROVIDED PT WITH A SANDWHICH TRAY AND DRINK. INITIATE PLAN OF CARE.
[2017-05-18 21:46] VITALS: BP 132/70
[2017-05-19] VITALS (7 sets, daily range): BP systolic 112–155; BP diastolic 43–83; Ht 182.9 cm; Wt 106.5 kg
--- NOTE | 2017-05-19 02:17 | NUR ---
ASSISTED PT UP AND TO THE BATHROOM TO VOID, THEN BACK TO BED AND ON BIPAP. BIPAP O2 HAS NOW BEEN REDUCED TO 45% PER RT. CPOC. CALL LIGHT IN REACH.
--- NOTE | 2017-05-19 07:30 | NUR ---
PT SITTING UP IN BED SLEEPING. BIPAP ON AND PATENT. NO S/S DISTRESS NOTED. WILL CONT TO MONITOR
--- NOTE | 2017-05-19 12:23 | NUR ---
PT HAS BEEN REFUSING TO WEAR HIS OXYGEN. PT WAS ANGRY THIS MORNING AFTER WEARING THE BIPAP ALL NIGHT, AND WANTED IT OFF. RESPIRATORY PLACED PT ON 5L NC. PT HAS BEEN SATTING OK WITH THIS AND NO COMPLAINTS OF SOB. PT CAME OUT OF PT ROOM SAYING THAT PT IS REFUSING TO WEAR HIS O2 AND HIS O2 SATS ARE AT 88%. EXPLAINING TO PT THAT HE NEEDS TO WEAR HIS O2 OR HE WILL DESAT AND HAVE TO WEAR THE BIPAP AGAIN. PT PUT HIS O2 ON AND SATS ARE NOW 91%. PT STATES THAT HE DOES WEAR O2 NC 3L AT HOME 06/01, BUT DOES NOT LIKE TO WEAR IT. PT SCREAMS AT PT "AND THATS WHY YOURE HERE IN THE FIRST PLACE! BECAUSE YOU DONT FOLLOW THE RULES!!"
--- NOTE | 2017-05-19 13:04 | NUR ---
PT PULLED OUT PIV WITH CATH TIP INTACT. PT CURRENTLY TALKING WITH PHARMACY CARE COORDINATOR WITH DR ZEINAB CUMMINGS, MAYELIN GUERRERO. WILL RESITE PT PIV WHEN SHE IS FINISHED WITH PT.
--- NOTE | 2017-05-19 13:13 | NUR ---
RESITED PT TO LEFT HAND 22G X1 STICK. DSNG CDI SIGNED AND DATED. SWAB CAPS IN USE. AT BEDSIDE BOTH DENY NEEDS.
--- NOTE | 2017-05-19 17:01 | NUR ---
PT IS TAKING DIAMOX AT HOME, LAST DOSE WAS ON 05/18 STATED IN MED REC
--- NOTE | 2017-05-19 21:34 | NUR ---
HS MEDS GIVEN WITH FRESH ICE WATER, NORCO 1 TAB GIVEN FOR C/O PAIN, RATES PAIN AT A 7 ON PAIN SCALE. HS SNACK PROVIDED AT PT REQUEST. NO OTHER NEEDS VOICED AT THIS TIME.
--- NOTE | 2017-05-20 01:25 | NUR ---
RT AT BED SIDE, ASSIST PT WITH PLACING BIPAP ON.
[2017-05-20 02:14] VITALS: BP 121/49
[2017-05-20 05:55] VITALS: BP 122/49
[2017-05-20 06:40] LABS: BASOPHILS 0 % (0-2); EOSINOPHILS 0 % (0-7); HEMATOCRIT 40.3 % (42.0-54.0); HEMOGLOBIN 13.2 g/dL (13.5-17.5); IMMATURE GRANULOCYTES 0.6 % (0-5); LYMPHOCYTES 4.6 % (15-50); MCH 32.2 pg (26.0-34.0); MCHC 32.8 g/dL (31.0-37.0); MCV 98.3 fL (80.0-100.0); MEAN PLATELET VOLUME 11.8 fL (7.4-10.4); MONOCYTES 4.9 % (2-11); NEUTROPHILS 89.9 % (40-80); PLATELET COUNT 137 10x3/uL (130-400); RDW 12.6 % (11.5-14.5); WBC 18.8 10x3/uL (4.8-10.8)
[2017-05-20 07:04] LABS: ALBUMIN 2.9 g/dL (3.4-5.0); ANION GAP 7.4 mmol/L (8-16); BILIRUBIN - TOTAL 0.2 mg/dL (0.2-1.3); CREATININE - SERUM 1.1 mg/dL (0.6-1.3); MAGNESIUM - SERUM 1.9 mg/dL (1.8-2.4); PHOSPHOROUS 2.3 mg/dL (2.5-4.9); POTASSIUM - SERUM 4.4 mmol/L (3.5-5.1)
--- NOTE | 2017-05-20 09:00 | NUR ---
AM ROUNDS - PT IS IN BED AND AWAKE AT THIS TIME. MONITOR SHOWING SR, HR 80. PT IS ON 5L O2 VIA NC. IV TO LEFT HAND, SL. PT IS UP AD MIN. BED AT LOWEST POSITION. CALL ROMERO IN USE/REACH. SIDE RAILS UP X2. WILL CONTINEUT O MONITOR
[2017-05-20 09:48] VITALS: BP 130/73
[2017-05-20 12:26] VITALS: BP 109/55
[2017-05-20 15:16] VITALS: BP 111/59
--- NOTE | 2017-05-20 18:10 | NUR ---
PT IN BED AT THIS TIME. VISITOR AT BEDSIDE. NO NEEDS. WILL CONTINUE TO MONITOR
[2017-05-20 21:50] VITALS: BP 115/50
--- NOTE | 2017-05-20 23:10 | NUR ---
PATIENT IS SITTING UP ON EDGE OF BED. HE IS COUGHING UP YELLOW SPUTUM AND SPITTING IT IN A CUP. DENIES ANY NEEDS AT THIS TIME.
[2017-05-21 00:20] VITALS: BP 120/61
--- NOTE | 2017-05-21 02:53 | NUR ---
PT SITTING UP IN BED, AWAKE, ALER, DRINKING COFFEE, NURSE AT BESIDE. NO NEEDS AT THIS TIME. CONTINUE TO MONITOR CLOSELY.
[2017-05-21 04:33] VITALS: BP 138/70
[2017-05-21 05:27] LABS: BASOPHILS 0.1 % (0-2); EOSINOPHILS 0 % (0-7); IMMATURE GRANULOCYTES 0.8 % (0-5); LYMPHOCYTES 5.7 % (15-50); MCH 31.9 pg (26.0-34.0); MCHC 32.5 g/dL (31.0-37.0); MCV 98.3 fL (80.0-100.0); MONOCYTES 4.7 % (2-11); NEUTROPHILS 88.7 % (40-80); PLATELET COUNT 149 10x3/uL (130-400); RBC 4.07 10x6/uL (4.20-6.10); RDW 12.7 % (11.5-14.5)
[2017-05-21 05:57] LABS: ALBUMIN 2.9 g/dL (3.4-5.0); ANION GAP 9.8 mmol/L (8-16); BILIRUBIN - TOTAL 0.2 mg/dL (0.2-1.3); CALCIUM 9.1 mg/dL (8.5-10.1); CREATININE - SERUM 1.2 mg/dL (0.6-1.3); POTASSIUM - SERUM 4.8 mmol/L (3.5-5.1); PROTEIN - SERUM 6.3 g/dL (6.4-8.2)
[2017-05-21 08:21] VITALS: BP 142/70
[2017-05-21 09:16] LABS: IMMUNOGLOBULIN A 249 mg/dL (61-437); IMMUNOGLOBULIN E 163 IU/mL (0-100); IMMUNOGLOBULIN G 901 mg/dL (700-1600)
--- NOTE | 2017-05-21 09:47 | NUR ---
UP SOB WITH CALL LIGHT IN REACH. RESP UL ON . NO NEEDS VOICED. WILL MONITOR.
--- NOTE | 2017-05-21 10:24 | NUR ---
ASSESSMENT DONE. DENIES NEEDS.
[2017-05-21 11:34] VITALS: BP 131/64
--- NOTE | 2017-05-21 13:40 | NUR ---
Pt has refused to wear Bipap while napping during the day. He states he will only wear machine QHS while sleeping. Risks and hazards discussed with patient.
[2017-05-21 16:14] VITALS: BP 122/69
--- NOTE | 2017-05-21 17:22 | NUR ---
WOTHOUT CHANGES OR DISTRESS NOTED AT AT THIS TIME. DENIES NEEDS.
--- NOTE | 2017-05-21 19:45 | NUR ---
PT SITTING ON SIDE OF BED EATING COOKIES. PT DENIES ANY NEEDS. ONLY ASKS FOR A COFFEE. PT HAS NO S/S OF DISTRESS. O2 AT 5L. BIPAP AT BEDSIDE. BEDLOW AND CALL LIGHT IN REACH. WILL CPOC
[2017-05-21 20:54] VITALS: BP 147/63
[2017-05-22] VITALS: BP 155/88
--- NOTE | 2017-05-22 | NUR ---
PT ASLEEP. AWAKE WITH VERBAL STIMULI. PT SET UP ON SIDE OF BED. PT AAO. PT ON 5L OF O2. DENIES ANY NEEDS. NO S/S OF DISTRESS. WILL CPOC
[2017-05-22 04:00] VITALS: BP 130/78
[2017-05-22 04:54] LABS: BASOPHILS 0.1 % (0-2); EOSINOPHILS 0 % (0-7); HEMATOCRIT 40.6 % (42.0-54.0); HEMOGLOBIN 13.4 g/dL (13.5-17.5); IMMATURE GRANULOCYTES 1.9 % (0-5); MCV 96.9 fL (80.0-100.0); MEAN PLATELET VOLUME 11.7 fL (7.4-10.4); MONOCYTES 7.5 % (2-11); NEUTROPHILS 83.5 % (40-80); PLATELET COUNT 156 10x3/uL (130-400); RBC 4.19 10x6/uL (4.20-6.10); RDW 12.9 % (11.5-14.5)
[2017-05-22 05:06] LABS: WBC 10.4 10x3/uL (4.8-10.8)
[2017-05-22 05:28] LABS: ALBUMIN 2.9 g/dL (3.4-5.0); ANION GAP 9.1 mmol/L (8-16); BILIRUBIN - TOTAL 0.29 mg/dL (0.2-1.3); CALCIUM 8.9 mg/dL (8.5-10.1); CARBON DIOXIDE 38.1 mmol/L (21.0-32.0); CREATININE - SERUM 1.1 mg/dL (0.6-1.3); POTASSIUM - SERUM 4.2 mmol/L (3.5-5.1); PROTEIN - SERUM 6.7 g/dL (6.4-8.2)
--- NOTE | 2017-05-22 06:22 | NUR ---
PT SITTING ON SIDE OF BED DRINKING COFFEE AND EATING A SNACK. MORNING MEDS GIVEN. PT DENIES ANY NEEDS AT THIS TIME. NO S/S OF DISTRESS. BED LOW AND CALL LIGHT IN REACH. WILL CPOC
--- NOTE | 2017-05-22 07:10 | NUR ---
ASSESSMENT COMPLETED. TELEMERTY SHOWS SR. LEFT HAND SL PATENT. O2 AT 5 L/M. UP ON SIDE OF BED. DENIES ANY NEEDS.
--- NOTE | 2017-05-22 07:30 | NUR ---
ASSESSMENT COMPLETED. DENIES ANY NEEDS. TELEMERTY SHOWS SR. O2 5L/M PER NC. UP AB MIN ALERT AND ORIENTED. WILL MONITOR
[2017-05-22 09:15] VITALS: BP 135/78
[2017-05-22 11:53] VITALS: BP 119/78
--- NOTE | 2017-05-22 13:53 | NUR ---
SLEEPING AT PRESENT. MONITOR SHOWS SR @ 65.
--- NOTE | 2017-05-22 15:42 | NUR ---
Patient Name: KAREN VALLE Admission Status: ER Accout number: [id number] Admission Date: 05-18-2017 : 1945 Admission Diagnosis:SHORTNESS OF BREATH Attending: KAVON Current LOS: 4 Anticipated DC Date: 05-23-2017 Planned Disposition: Home Primary Insurance: [employer] CHOICE PPO MCR ADVANT Discharge Planning Comments: * Is the patient Alert and Oriented? Yes 0 * How many steps to enter\exit or inside your home? NONE 0 * PCP [facility] 0 * Pharmacy [facility] 0 * Preadmission Environment Home with Family 0 * ADLs Independent 0 * Equipment Nebulizer Other Oxygen Rolling Walker 0 * Other Equipment HOME AND PORTABLE OXYGEN TRILOGY MACHINE [facility] - MEDICAL EQUIPMENT PROVIDER 0 * List name and contact numbers for known caregivers / representatives who currently or will assist patient after discharge: SERGIO LIZ', 0 * Community resources currently utilized None 0 * Please name any agencies selected above. NONE 0 * Additional services required to return to the preadmission environment? No 0 * Can the patient safely return to the preadmission environment? Yes 0 * Has this patient been hospitalized within the prior 30 days at any hospital? No 0 CM RECEIVED ORDER TO ARRANGE BIPAP OR TRILOGY FOR HOME. CM MET WITH PT IN ROOM TO DISCUSS DISCHARGE PLANNING AND NEEDS. PT REPORTS LIVING AT HOME INDEPENDENTLY WITH SERGIO, PT REPORTS HAVING NEBULIZER, OXYGEN, CPAP AND ROLLING WALKER. PT REPORTS HE JUST PAID $600 FOR THE MACHINE AT HOME AND CANNOT AFFORD ANYTHING ELSE. PT'S PROVIDER OF MEDICAL EQUIPMENT IS [facility]. PT HAS NO OUTSIDE SERVICES ASSISTING IN THE HOME. CM DISCUSSED AVAILABILITY OF HOME HEALTH, REHAB SERVICES AND MEDICAL EQUIPMENT. PT DENIES DISCHARGE NEED OF REHAB OR HOME HEALTH; PT REPORTS HOME HEALTH GOT HIM FIRED FROM HIS PCP AND HE IS STUCK NOW WITH [facility]. PT REPORTS HER FIANCE WILL PICK HIM UP FOR DISCHARGE HOME. IMPORTANT MESSAGE FROM MEDICARE PROVIDED AND EXPLAINED. CM CALLED [facility], , SPOKE TO DEVIKA WHO VERIFIED PT IS ACTIVE AND HAS A TRILOGY MACHINE AT HOME. DEVIKA HAS MAILED FINANCIAL ASSISTANCE PAPERWORK TO PT'S HOME AND HAS YET TO RECEIVE IT BACK TO TRY TO HELP PT WITH HIS COPAY. CM SPOKE TO PT, INFORMED HIM HE HAS A TRILOGY, PT STATES THAT IS GOOD, BECAUSE HE IS COMFORTABLE WITH IT AND KNOWS HOW TO WORK IT ALREADY. CM DISCUSSED FILLING OUT THE APPLICATION FOR FINANCIAL ASSISTANCE WITH COPAYS WITH [employer]. PT WILL LOOK FOR THE FORM AT HOME AND IF HE DOES NOT HAVE IT, WILL CALL [employer] TO REQUEST ANOTHER. PT HAS TRILOGY AT HOME, PT WILL NOT ACCEPT HOME HEALTH, DENIES FURTHER DISCHARGE NEEDS. CM TO FOLLOW AND ASSIST NEEDED. Cutter Helper: Lewis Caputo
[2017-05-22 16:53] VITALS: BP 142/85
--- NOTE | 2017-05-22 19:32 | NUR ---
PT SITTING ON SIDE OF BED. PT ASKS FOR A SANDWINCH AND SPRITE. WILL BRING TO PT. PT RECEIVING BREATING TREATMENT, PT 5L O2 NC. DENIES ANY OTHER NEEDS. NO S/S OF DISTRESS. WILL CPOC
--- NOTE | 2017-05-22 21:30 | NUR ---
PT STANDING AT SINKING WASHING UP. CLEANING FACE HANDS AND UNDERARMS. PT COUGHING ALOT PRODUCTIVE, SPUTUM CLEAR IN COLOR. , C/O LUNGS HURTING. 5L OF O2. PT STATES HE IS GETTING HICCUPS FROM ONE OF THE MEDS AND ITS GETTING WORSE EACH DAY THAT HE TAKES IT. PT DENIES ANY NEEDS. NO S/S OF DISTRESS. WILL CPOC
[2017-05-22 22:42] VITALS: BP 107/55
--- NOTE | 2017-05-23 04:56 | NUR ---
PT SITTING ON SIDE OF BED DRINKING COFFEE AND EATING CRACKERS. 5L OF O2 NC. PT DENIES ANY NEEDS. NO S/S OF DISTRESS. BED LOW AND CALL LIGHT IN REACH. WILL CPOC
[2017-05-23 05:08] LABS: BASOPHILS 0.2 % (0-2); EOSINOPHILS 0 % (0-7); HEMATOCRIT 41.4 % (42.0-54.0); HEMOGLOBIN 13.6 g/dL (13.5-17.5); IMMATURE GRANULOCYTES 3.8 % (0-5); LYMPHOCYTES 8.3 % (15-50); MCH 32.2 pg (26.0-34.0); MCHC 32.9 g/dL (31.0-37.0); MCV 97.9 fL (80.0-100.0); MEAN PLATELET VOLUME 11.5 fL (7.4-10.4); MONOCYTES 8.9 % (2-11); NEUTROPHILS 78.8 % (40-80); PLATELET COUNT 154 10x3/uL (130-400); RBC 4.23 10x6/uL (4.20-6.10); RDW 12.8 % (11.5-14.5); WBC 11.2 10x3/uL (4.8-10.8)
[2017-05-23 05:19] VITALS: BP 126/63
[2017-05-23 05:34] LABS: ANION GAP 7.5 mmol/L (8-16); BILIRUBIN - TOTAL 0.3 mg/dL (0.2-1.3); CALCIUM 8.9 mg/dL (8.5-10.1); CARBON DIOXIDE 36.8 mmol/L (21.0-32.0); CREATININE - SERUM 1.2 mg/dL (0.6-1.3); POTASSIUM - SERUM 4.3 mmol/L (3.5-5.1); PROTEIN - SERUM 6.5 g/dL (6.4-8.2)
--- NOTE | 2017-05-23 07:30 | NUR ---
ASSESSMENT COMPLETED. TELEMERTY SHOWS SR 68. O2 AT 5 L/M PER NC. ALERT AND ORIENTED. PT IS UP AB MIN. DENIES ANY NEEDS. CALL LIGHT IN REACH WITH SR UP. WILL MONITOR
[2017-05-23 10:27] VITALS: BP 119/80
[2017-05-23 11:56] VITALS: BP 114/65
--- NOTE | 2017-05-23 12:00 | NUR ---
UP ON SIDE OF BED. DENIES ANY NEEDS. PT WANTING TO GO HOME.
[2017-05-23] MEDS ORDERED: LEVAQUIN750 MG PO (12:55)
[2017-05-23] MEDS ORDERED: CLEOCIN HCL300 MG PO (12:56)
[2017-05-23] MEDS ORDERED: FLORAJEN3 CAPS460 MG PO (12:57)
[2017-05-23] MEDS ORDERED: PREDNISONE10 MG PO (12:58)
--- NOTE | 2017-05-23 15:00 | NUR ---
PT TO BE DCD WHEN HE CAN ARRANGE TRANSPORTATION. AWAITING CALL FROM .
--- NOTE | 2017-05-23 15:55 | NUR ---
IV DCD WITH TIP INTACT. INSTRUCTIONS GIVEN TO PT AND . TO PRIVATE CAR PER WENDY. PT ON HIS PRIVATE OXYGEN TANK,
== END 2017-05-23 17:08 | disposition home or self-care (01) | DRG 177 ==
LOC: D.ER 17:38 → D.M2 18:35 → D.SDCHOLD 05-19 15:55 → D.M2 05-19 16:04
PROVIDERS: Emergency Medicine; Family Medicine; Internal Medicine Pulmonary Disease; ADMIT Family Medicine
PROC: 5A09557 Assistance with Respiratory Ventilation, Greater than 96 Consecutive Hours, Continuous Positive Airway Pressure (ICD-10-PCS; principal; 2017-05-18)
DX: J15.6 Pneumonia due to other Gram-negative bacteria (principal); J96.21 Acute and chronic respiratory failure with hypoxia; J96.22 Acute and chronic respiratory failure with hypercapnia; J44.0 Chronic obstructive pulmonary disease with (acute) lower respiratory infection; J44.1 Chronic obstructive pulmonary disease with (acute) exacerbation; F17.203 Nicotine dependence unspecified, with withdrawal; I50.32 Chronic diastolic (congestive) heart failure; M35.1 Other overlap syndromes; J15.212 Pneumonia due to Methicillin resistant Staphylococcus aureus; D64.9 Anemia, unspecified; G89.29 Other chronic pain; R41.82 Altered mental status, unspecified; G47.33 Obstructive sleep apnea (adult) (pediatric); T17.920A Food in respiratory tract, part unspecified causing asphyxiation, initial encounter

== ENCOUNTER 2017-05-28 15:35 | Inpatient (IN) | payer MEDICARE ==
[~2017-05-28] VITALS: Ht 182.9 cm; Wt 95.8 kg
[~2017-05-28 15:35] MED LIST changes: +CLEOCIN HCL300 MG PO
[2017-05-28 16:39] LABS: APPEARANCE CLEAR (CLEAR); BILIRUBIN NEGATIVE (NEGATIVE); COLOR YELLOW (YELLOW); GLUCOSE NEGATIVE (NEGATIVE); KETONE NEGATIVE (NEGATIVE); NITRITE NEGATIVE (NEGATIVE); PROTEIN TRACE mg/dL (NEGATIVE); SPECIFIC GRAVITY 1.015 (1.005-1.020); UROBILINOGEN NORMAL (NORMAL)
[2017-05-28 17:12] LABS: BASOPHILS 0.1 % (0-2); EOSINOPHILS 1.1 % (0-7); HEMATOCRIT 41.3 % (42.0-54.0); HEMOGLOBIN 13.2 g/dL (13.5-17.5); IMMATURE GRANULOCYTES 1.5 % (0-5); LYMPHOCYTES 5.9 % (15-50); MCH 31.8 pg (26.0-34.0); MCV 99.5 fL (80.0-100.0); MEAN PLATELET VOLUME 10.6 fL (7.4-10.4); MONOCYTES 9.9 % (2-11); NEUTROPHILS 81.5 % (40-80); RBC 4.15 10x6/uL (4.20-6.10); RDW 13.4 % (11.5-14.5); WBC 10.3 10x3/uL (4.8-10.8)
[2017-05-28 17:13] LABS: PLATELET COUNT 104 10x3/uL (130-400)
[2017-05-28 17:28] LABS: ALBUMIN 2.6 g/dL (3.4-5.0); ALKALINE PHOSPHATASE 54 U/L (46-116); ALT (SGPT) 29 U/L (10-68); BILIRUBIN - TOTAL 0.51 mg/dL (0.2-1.3); CALCIUM 8.4 mg/dL (8.5-10.1); CHLORIDE - SERUM 95 mmol/L (98-107); CREATINE KINASE 35 UL (21-232); CREATININE - SERUM 0.9 mg/dL (0.6-1.3); MAGNESIUM - SERUM 2.2 mg/dL (1.8-2.4); POTASSIUM - SERUM 4.1 mmol/L (3.5-5.1); PRO BNP 235 pg/mL (0-125); PROTEIN - SERUM 6.2 g/dL (6.4-8.2); SODIUM 134 mmol/L (136-145); TROPONIN-I 0.019 ng/mL (0.000-0.060); UREA NITROGEN 17 mg/dL (7-18); eGFR NON AFRICAN AMERICAN 89 mL/min (90-120)
[2017-05-28 17:35] LABS: CALC OSMOLALITY 271 mosm/kg (275-300); GLUCOSE 126 mg/dL (74-106)
[2017-05-28 17:40] LABS: CARBON DIOXIDE 41.1 mmol/L (21.0-32.0)
--- NOTE | 2017-05-28 20:11 | NUR ---
PT ARRIVED FROM ER VIA WHEELCHAIR, ALERT AND ORIENTED, RESPIRATIONS EVEN AND UNLABORED. CALL LIGHT IN REACH, DROPLET ISOLATION IN PLACE DUE TO POSITVE FLU TYPE A. PT TEACHING ABOUT ISOLATION AND CALL LIGHT. WILL CONTINUE PLAN OF CARE.
[2017-05-28] MEDS ORDERED: SYMBICORT 16010.2 GM INH (20:17)
[2017-05-28] MEDS ORDERED: ADVAIR 250/501 DISK INH (20:17)
[2017-05-28] MEDS ORDERED: ALBUTEROL2.5 MG/3 M INH (20:18)
[2017-05-28 21:03] VITALS: BP 148/82
[2017-05-29 03:55] VITALS: BP 148/82; BMI 30.3
--- NOTE | 2017-05-29 04:40 | NUR ---
NETWORK LEAD AT BEDSIDE TO OBTAIN VITALS, CALL LIGHT IN REACH. WILL CONTINUE WITH PLAN OF CARE.
[2017-05-29 05:40] VITALS: BP 155/75
--- NOTE | 2017-05-29 07:15 | NUR ---
REPORT RECEIVED. RR EVEN AND UNLABORED. PT DENIES NEEDS AT THIS TIME. WILL CTM.
[2017-05-29 08:34] VITALS: BP 140/67
[2017-05-29 12:42] VITALS: BP 133/66
--- NOTE | 2017-05-29 15:00 | NUR ---
PTS 20G IV IN LEFT AC IS OUT WITH CATHTER TIP INTACT. STARTED 20G IV TO LEFT WRIST X1 STICK. DRESSING CDI. FLUSHES EASILY. WILL CTM.
--- NOTE | 2017-05-29 16:01 | NUR ---
EDUCATED PT ON PURPOSE OF SCDS. REFUSED TO WEAR SCDS AT THIS TIME.
[2017-05-29 16:35] VITALS: BP 130/60
--- NOTE | 2017-05-29 18:57 | NUR ---
PT RESTING QUIETLY, RR EVEN AND UNLABORED, DENIES NEEDS AT THIS TIME. WILL GIVE REPORT ON PT CONDTION FOR THE DAY.
[2017-05-29 21:56] VITALS: BP 126/62
--- NOTE | 2017-05-30 00:43 | NUR ---
PT RESTING WELL IN BED, RESPIRATIONS EVEN AND UNLABORED. CALL LIGHT IN REACH, WILL CONTINUE PLAN OF CARE.
[2017-05-30 06:09] VITALS: BP 153/76
[2017-05-30 06:44] LABS: BASOPHILS 1.2 % (0-2); EOSINOPHILS 0 % (0-7); HEMATOCRIT 40.2 % (42.0-54.0); HEMOGLOBIN 13.1 g/dL (13.5-17.5); IMMATURE GRANULOCYTES 1.1 % (0-5); LYMPHOCYTES 16.9 % (15-50); MCH 32.1 pg (26.0-34.0); MCHC 32.6 g/dL (31.0-37.0); MCV 98.5 fL (80.0-100.0); MEAN PLATELET VOLUME 10.2 fL (7.4-10.4); NEUTROPHILS 69.8 % (40-80); PLATELET COUNT 103 10x3/uL (130-400); RBC 4.08 10x6/uL (4.20-6.10); RDW 13.1 % (11.5-14.5); WBC 8.2 10x3/uL (4.8-10.8)
[2017-05-30 07:07] LABS: ALBUMIN 2.3 g/dL (3.4-5.0); ALKALINE PHOSPHATASE 58 U/L (46-116); ALT (SGPT) 26 U/L (10-68); CALCIUM 8.6 mg/dL (8.5-10.1); CHLORIDE - SERUM 98 mmol/L (98-107); CREATININE - SERUM 0.9 mg/dL (0.6-1.3); POTASSIUM - SERUM 4.4 mmol/L (3.5-5.1); PROTEIN - SERUM 6.1 g/dL (6.4-8.2); SODIUM 139 mmol/L (136-145); UREA NITROGEN 20 mg/dL (7-18); eGFR NON AFRICAN AMERICAN 89 mL/min (90-120)
[2017-05-30 07:16] LABS: CALC OSMOLALITY 284 mosm/kg (275-300); GLUCOSE 175 mg/dL (74-106)
[2017-05-30 07:19] LABS: CARBON DIOXIDE 41.4 mmol/L (21.0-32.0)
--- NOTE | 2017-05-30 07:39 | NUR ---
AM ROUNDING- RECEIVED REPORT FROM EXCHANGE SPECIALIST NURSE ZENOBIA. PT IS CURRENTLY LAYING IN BED ON BACK WITH EYES CLOSED RESTING. IN DROPLET ISOLATION FOR THE FLU. ON 02 3L VIA NC. NO MONITOR. IV SEEN TO LEFT WRIST THAT IS CURRENTLY SALINE LOCKED. NO NEED AT THIS CURRENT TIME. WILL CONTINUE TO MONITOR AND CONTINUE WITH PLAN OF CARE.
[2017-05-30 08:43] VITALS: BP 136/73
[2017-05-30 13:12] VITALS: BP 144/67
[2017-05-30 17:17] VITALS: BP 180/84
--- NOTE | 2017-05-30 18:23 | NUR ---
PT IS CURRENTLY SITTING UP IN BED WITH EYES OPEN RESTING REQUESTING CUP OF COFFEE. YOVANY STOCK STATES SHE WILL TAKE PT CUP OF COFFEE. WILL CONTINUE TO MONITOR.
[2017-05-31 00:36] VITALS: BP 163/49
--- NOTE | 2017-05-31 01:19 | NUR ---
PT ON DROPLET ISOLATION. PT RESTING WITH EYES CLOSED. RESP EVEN AND REGULAR. BIPAP IN USE. SR UP X2, CALL LIGHT WITHIN REACH.
[2017-05-31 06:57] LABS: BASOPHILS 0.6 % (0-2); EOSINOPHILS 0 % (0-7); HEMATOCRIT 38.6 % (42.0-54.0); HEMOGLOBIN 12.4 g/dL (13.5-17.5); IMMATURE GRANULOCYTES 0.6 % (0-5); LYMPHOCYTES 28.2 % (15-50); MCH 31.4 pg (26.0-34.0); MCHC 32.1 g/dL (31.0-37.0); MCV 97.7 fL (80.0-100.0); MEAN PLATELET VOLUME 10.6 fL (7.4-10.4); MONOCYTES 9.9 % (2-11); NEUTROPHILS 60.7 % (40-80); PLATELET COUNT 119 10x3/uL (130-400); RBC 3.95 10x6/uL (4.20-6.10); WBC 9.3 10x3/uL (4.8-10.8)
[2017-05-31 07:18] LABS: ALBUMIN 2.4 g/dL (3.4-5.0); ALKALINE PHOSPHATASE 53 U/L (46-116); ALT (SGPT) 24 U/L (10-68); BILIRUBIN - TOTAL 0.26 mg/dL (0.2-1.3); CALC OSMOLALITY 279 mosm/kg (275-300); CHLORIDE - SERUM 98 mmol/L (98-107); CREATININE - SERUM 0.9 mg/dL (0.6-1.3); GLUCOSE 159 mg/dL (74-106); POTASSIUM - SERUM 3.9 mmol/L (3.5-5.1); SODIUM 137 mmol/L (136-145); UREA NITROGEN 20 mg/dL (7-18); eGFR NON AFRICAN AMERICAN 89 mL/min (90-120)
[2017-05-31 07:22] LABS: CARBON DIOXIDE 41.8 mmol/L (21.0-32.0)
[2017-05-31 09:19] VITALS: BP 147/62
[2017-05-31 12:08] VITALS: BP 152/65
[2017-05-31 17:07] VITALS: BP 126/64
--- NOTE | 2017-05-31 17:25 | NUR ---
PT IS CURRENTLY SITTING UP IN BED WITH EYES OPEN RESTING WATCHING TV. NO NEED AT THIS CURRENT TIME. WILL CONTINUE TO MONITOR.
--- NOTE | 2017-05-31 20:41 | NUR ---
PATIENT UP TO THE BATHROON WITH STAND BY ASSIST. C/O SHORTNESS OF BREATH. DENIES PAIN, BED LOW, CALL LIGHT IN REACH.
[2017-05-31 21:08] VITALS: BP 135/60
--- NOTE | 2017-05-31 22:49 | NUR ---
ATTEMPTED TO START IV BECAUSE PATIENT WAS C/O THE IV BURNING. STOPPED INFUSION AND ATTEMPTED TWO STICKS ON PATIENT BUT WAS UNSUCCESSFUL. PATIENT TOLERATED. INFORMED PATIENT THAT A SECOND NURSE WOULD BE ATTEMPTING TO START AN IV NEXT. PATIENT UNDERSTOOD AND AGREED. BED LOW, CALL LIGHT IN REACH.
--- NOTE | 2017-05-31 23:31 | NUR ---
NEW IV STARTED ON LEFT FOREARM BY NANCY. 20 G FIRST ATTEMPT. OLD IV IN LEFT WRIST WAS DC, CATHETER INTACT.PATIENT TOLERATED. BED LOW CALL LIGHT IN REACH.
[2017-06-01 01:27] VITALS: BP 133/80
[2017-06-01 05:40] LABS: BASOPHILS 0.3 % (0-2); EOSINOPHILS 0 % (0-7); HEMATOCRIT 40.5 % (42.0-54.0); HEMOGLOBIN 13.3 g/dL (13.5-17.5); IMMATURE GRANULOCYTES 0.9 % (0-5); MCH 31.7 pg (26.0-34.0); MCHC 32.8 g/dL (31.0-37.0); MCV 96.4 fL (80.0-100.0); NEUTROPHILS 77.8 % (40-80); RDW 13.1 % (11.5-14.5); WBC 7.5 10x3/uL (4.8-10.8)
[2017-06-01 05:49] LABS: PLATELET COUNT 146 10x3/uL (130-400)
[2017-06-01 06:10] LABS: ALBUMIN 2.6 g/dL (3.4-5.0); ALKALINE PHOSPHATASE 57 U/L (46-116); ALT (SGPT) 28 U/L (10-68); CALC OSMOLALITY 280 mosm/kg (275-300); CHLORIDE - SERUM 97 mmol/L (98-107); CREATININE - SERUM 0.8 mg/dL (0.6-1.3); GLUCOSE 181 mg/dL (74-106); POTASSIUM - SERUM 4.1 mmol/L (3.5-5.1); PROTEIN - SERUM 6.6 g/dL (6.4-8.2); SODIUM 137 mmol/L (136-145); UREA NITROGEN 19 mg/dL (7-18); eGFR NON AFRICAN AMERICAN > 90 mL/min (90-120)
[2017-06-01 06:51] VITALS: BP 160/54
[2017-06-01 08:24] VITALS: BP 171/71
[2017-06-01 12:11] VITALS: BP 151/78
--- NOTE | 2017-06-01 14:27 | NUR ---
PT RESTING IN BED, AWAKENS UPON ENTRANCE TO ROOM. O2 SAT READING 85, NO IMPROVEMENT WITH MANIPULATION OF O2 MONITOR. RT CALLED AND PATIENT WAS PLACED ON OXIMIZER AT 8 L. SATS READING 92 AFTER CHANGE, WILL CONTINUE WITH PLAN OF CARE.
--- NOTE | 2017-06-01 15:36 | NUR ---
RECEIVED CARE OF PT, PT SLEEPING, BED IS LOW, SRX2, CALL LIGHT IN REACH, WILL CONTINUE PLAN OF CARE
[2017-06-01 17:02] VITALS: BP 150/74
[2017-06-01 21:07] VITALS: BP 152/65
[2017-06-02 00:58] VITALS: BP 152/72
--- NOTE | 2017-06-02 02:36 | NUR ---
PT AWAKE, ASKING FOR COFFEE, DENIES ANY NEEDS AT THIS TIME, BED IS LOW, SRX2, CALL LIGHT IN REACH, WILL CONTINUE PLAN OF CARE
[2017-06-02 05:19] VITALS: BP 147/70
[2017-06-02 05:42] LABS: BASOPHILS 0.1 % (0-2); EOSINOPHILS 0 % (0-7); HEMATOCRIT 40.9 % (42.0-54.0); HEMOGLOBIN 13.6 g/dL (13.5-17.5); IMMATURE GRANULOCYTES 0.9 % (0-5); LYMPHOCYTES 22.8 % (15-50); MCH 31.7 pg (26.0-34.0); MCHC 33.3 g/dL (31.0-37.0); MCV 95.3 fL (80.0-100.0); MEAN PLATELET VOLUME 10.7 fL (7.4-10.4); MONOCYTES 10.8 % (2-11); NEUTROPHILS 65.4 % (40-80); PLATELET COUNT 145 10x3/uL (130-400); RBC 4.29 10x6/uL (4.20-6.10)
[2017-06-02 05:57] LABS: WBC 11.5 10x3/uL (4.8-10.8)
[2017-06-02 06:34] LABS: ALBUMIN 2.7 g/dL (3.4-5.0); ALKALINE PHOSPHATASE 60 U/L (46-116); ALT (SGPT) 35 U/L (10-68); CALC OSMOLALITY 285 mosm/kg (275-300); CALCIUM 9.3 mg/dL (8.5-10.1); CARBON DIOXIDE 35.8 mmol/L (21.0-32.0); CHLORIDE - SERUM 97 mmol/L (98-107); CREATININE - SERUM 0.9 mg/dL (0.6-1.3); GLUCOSE 180 mg/dL (74-106); POTASSIUM - SERUM 4.1 mmol/L (3.5-5.1); PROTEIN - SERUM 6.6 g/dL (6.4-8.2); SODIUM 138 mmol/L (136-145); eGFR NON AFRICAN AMERICAN 89 mL/min (90-120)
[2017-06-02 06:40] LABS: UREA NITROGEN 26 mg/dL (7-18)
--- NOTE | 2017-06-02 07:34 | NUR ---
RECIEVED REPORT ON PATIENT, PATIENT IS RESTING AT THIS TIME, NAD NOTED. CHEST RISES AND FALLS EQUALLY. PATIENT IS ON 4L/MIN VIA NC AT THIS TIME. BED IS LOW AND LOCKED. CALL LIGHT IN REACH. WILL CONT TO MONITOR PATIENT. CPOC
[2017-06-02 08:02] VITALS: BP 146/72
--- NOTE | 2017-06-02 09:15 | NUR ---
MORNING MEDICATIONS GIVEN. NEEDS MET. PATIENT DENIES ANY FURTHER NEEDS. CPOC
--- NOTE | 2017-06-02 11:30 | NUR ---
PATIENT EATING LUNCH, DENIES ANY NEEDS AT THIS TIME. BED LOW AND LOCKED. CALL LIGHT IN REACH. CPOC
[2017-06-02 13:05] VITALS: BP 135/93
--- NOTE | 2017-06-02 14:05 | NUR ---
PATIENT RESTING, REQUESTING COFFEE, BROUGHT PATIENT COFFEE, DENIES ANY FURTHER NEEDS. CPOC
[2017-06-02 16:31] VITALS: BP 144/78
--- NOTE | 2017-06-02 17:09 | NUR ---
PATIENT EATING DINNER, DENIES ANY NEEDS AT THIS TIME, CPOC
--- NOTE | 2017-06-02 18:14 | NUR ---
ROUNDS MADE, INFORMED PATIENT, SHIFT CHANGE WAS NEAR. PATIENT DENIES ANY NEEDS AT THIS TIME. CPOC
[2017-06-02 19:00] VITALS: BP 192/108
--- NOTE | 2017-06-02 19:18 | NUR ---
RECEIVED REPORT, WILL ASSUME CARE OF PT, PT IS SLEEPING, BED IS LOW, SRX2, CALL LIGHT IN REACH, WILL CONTINUE PLAN OF CARE
[2017-06-03] VITALS: BP 148/68
[2017-06-03 04:00] VITALS: BP 126/70
[2017-06-03 06:16] LABS: BASOPHILS 0.1 % (0-2); EOSINOPHILS 0 % (0-7); HEMOGLOBIN 15.2 g/dL (13.5-17.5); IMMATURE GRANULOCYTES 0.9 % (0-5); LYMPHOCYTES 12.2 % (15-50); MCHC 33.8 g/dL (31.0-37.0); MCV 94.7 fL (80.0-100.0); MEAN PLATELET VOLUME 10.9 fL (7.4-10.4); NEUTROPHILS 81.8 % (40-80); RBC 4.75 10x6/uL (4.20-6.10); RDW 12.8 % (11.5-14.5); WBC 12.1 10x3/uL (4.8-10.8)
[2017-06-03 06:23] LABS: PLATELET COUNT 176 10x3/uL (130-400)
[2017-06-03 06:48] LABS: ALBUMIN 3.1 g/dL (3.4-5.0); ANION GAP 9.2 mmol/L (8-16); BILIRUBIN - TOTAL 0.4 mg/dL (0.2-1.3); CALCIUM 9.9 mg/dL (8.5-10.1); CARBON DIOXIDE 35.6 mmol/L (21.0-32.0); CREATININE - SERUM 1.1 mg/dL (0.6-1.3); POTASSIUM - SERUM 4.8 mmol/L (3.5-5.1); PROTEIN - SERUM 7.1 g/dL (6.4-8.2)
--- NOTE | 2017-06-03 07:49 | NUR ---
AM ROUNDS - PT IN BED AND ASLEEP AT THIS TIME WITH EQUAL AND NON LABORED BREATHING. O2 AT 4L VIA NS. IV TO LEFT FA, SL. DROP ISO. BED AT LOWEST POSITION. CALL ROMERO IN USE/REACH. SIDE RAILS UP X2. WILL CONTINEUT O MONITOR
[2017-06-03 08:52] VITALS: BP 139/66
[2017-06-03 12:12] VITALS: BP 114/74
[2017-06-03 13:47] VITALS: Ht 182.9 cm; Wt 95.8 kg
[2017-06-03 16:11] VITALS: BP 127/71
--- NOTE | 2017-06-03 17:24 | NUR ---
PT IN BED AT THIS TIME. NO NEEDS. WILL CONTINUE TO MONITOR
[2017-06-03 20:23] VITALS: BP 137/62
[2017-06-04] VITALS: BP 139/71
--- NOTE | 2017-06-04 01:01 | NUR ---
PT IN BED RESTING QUIETLY. BREATHING EVEN AND UNLABORED. BED IN LOW POSITION, CALL LIGHT WITHIN REACH. WILL CTM.
[2017-06-04 04:00] VITALS: BP 152/79
--- NOTE | 2017-06-04 07:49 | NUR ---
AM ROUNDS - PT IN BED AND APPEARS TO BE SLEEPING WITH EQUAL AND NON LABORED BREATHING. PT ON DROP ISO. IV TO RIGTH HAND, SL. BED AT LOWEST POSITION. CALL ROMERO IN UESE/REACH. SIDE RAILS UP X2. WILL CONTINUE TO MONITOR
[2017-06-04 08:00] VITALS: BP 124/91
[2017-06-04 13:16] VITALS: BP 137/82
[2017-06-04 17:32] VITALS: BP 121/54
[2017-06-04 17:39] VITALS: BP 138/85
--- NOTE | 2017-06-04 19:08 | NUR ---
RECEIVED REPORT FROM DAY SHIFT NURSE.
--- NOTE | 2017-06-04 20:50 | NUR ---
MEDS GIVEN ORDERED.
--- NOTE | 2017-06-04 22:38 | NUR ---
SIT UP IN BED AND WATCH TV.
--- NOTE | 2017-06-04 22:57 | NUR ---
REST IN BED, CALL LIGHT IN REACH.
[2017-06-05] VITALS: BP 110/69
--- NOTE | 2017-06-05 00:15 | NUR ---
PT TAKE OFF BIPAP, AND REFUSED TO PUT IT BACK.
--- NOTE | 2017-06-05 01:27 | NUR ---
IN BED, EYE CLOSE, CALL LIGHT IN REACH.
[2017-06-05 06:35] LABS: BASOPHILS 0 % (0-2); EOSINOPHILS 0 % (0-7); HEMATOCRIT 43.9 % (42.0-54.0); HEMOGLOBIN 14.8 g/dL (13.5-17.5); IMMATURE GRANULOCYTES 1.2 % (0-5); LYMPHOCYTES 10.4 % (15-50); MCH 31.6 pg (26.0-34.0); MCHC 33.7 g/dL (31.0-37.0); MCV 93.8 fL (80.0-100.0); MEAN PLATELET VOLUME 11.1 fL (7.4-10.4); MONOCYTES 4.6 % (2-11); NEUTROPHILS 83.8 % (40-80); PLATELET COUNT 177 10x3/uL (130-400); RBC 4.68 10x6/uL (4.20-6.10); RDW 12.7 % (11.5-14.5); WBC 12.7 10x3/uL (4.8-10.8)
[2017-06-05 06:41] LABS: ANION GAP 12.1 mmol/L (8-16); CALCIUM 9.1 mg/dL (8.5-10.1); CARBON DIOXIDE 30.7 mmol/L (21.0-32.0); CREATININE - SERUM 1.2 mg/dL (0.6-1.3); POTASSIUM - SERUM 4.8 mmol/L (3.5-5.1)
--- NOTE | 2017-06-05 08:23 | NUR ---
AM ROUNDS COMPLETED. INTRODUCED MYSELF TO PT PRIMARY RN FOR TODAYS SHIFT. SHIFT ASSESSMENT COMPLETED. PT A&O SITTING UP ON EDGE OF BED EATING BREAKFAST. UPON PUSHING PTS IV ANBX PTS R.HAND PIV INFILTRATED. D/C WITH CATH TIP FULLY INTACT. PT IS REQUESTING TO BE RESITED LATER THIS MORNING AFTER HE TAKES A SHOWER. WILL ALLOW THAT FOR PT. PT SWALLOWED HIS MORNING MEDICTAIONS WITHOUT ANY DIFFICULTIES. PT DENIES ANY FURTHER NEEDS AT THIS TIME. CL IN REACH, BED IN LOWEST, SIDE RAILS X2. WILL CPOC.
[2017-06-05 08:51] VITALS: BP 109/80
--- NOTE | 2017-06-05 12:00 | NUR ---
PT WANTING TO GET CLEANED UP. SHOWER SUPPLIES PROVIDED. PT GETTING IN SHOWER AT THIS TIME, NO FURTHER NEEDS. WILL CTM.
[2017-06-05 12:30] VITALS: BP 143/81
--- NOTE | 2017-06-05 15:41 | NUR ---
20 GUAGE PIV INSERTED X1 STICK VIA L.FA. PUSHED PTS IV ANBX OVER 5 MINS AND FLUSHED AFTER WITHOUT ANY ISSUES. PIV DATED AND INITIALED SL WITH SWAB CAPS IN USE. AND MAYELIN GUERRERO APN AT BEDSIDE AND PT SHOULD BE ABLE TO DISCHARGE TOMORROW. PT STATES HE IS READY AND DENIES ANY QUESTIONS OR CONCERNS. NO FURTHER NEEDS AT THIS TIME. CL IN REACH, BED IN LOWEST, SIDE RAILS X2. WILL CPOC.
[2017-06-05 20:00] VITALS: BP 139/77
--- NOTE | 2017-06-05 21:45 | NUR ---
PT LYING IN BED, AWAKE, ALERT, ORIENTED, DENIES ANY NEEDS. WILL CONTINUE TO MONITOR CLOSELY.
[2017-06-06] VITALS: BP 143/83
[2017-06-06 04:00] VITALS: BP 136/83
[2017-06-06 06:00] LABS: BASOPHILS 0 % (0-2); EOSINOPHILS 0 % (0-7); HEMATOCRIT 43.2 % (42.0-54.0); HEMOGLOBIN 14.7 g/dL (13.5-17.5); IMMATURE GRANULOCYTES 1.1 % (0-5); LYMPHOCYTES 10.4 % (15-50); MCH 31.9 pg (26.0-34.0); MCV 93.7 fL (80.0-100.0); MEAN PLATELET VOLUME 10.9 fL (7.4-10.4); MONOCYTES 3.9 % (2-11); NEUTROPHILS 84.6 % (40-80); PLATELET COUNT 161 10x3/uL (130-400); RBC 4.61 10x6/uL (4.20-6.10); RDW 12.6 % (11.5-14.5); WBC 10.9 10x3/uL (4.8-10.8)
[2017-06-06 06:15] LABS: ANION GAP 8.7 mmol/L (8-16); CALCIUM 9.7 mg/dL (8.5-10.1); CARBON DIOXIDE 36.4 mmol/L (21.0-32.0); CREATININE - SERUM 1.2 mg/dL (0.6-1.3); POTASSIUM - SERUM 5.1 mmol/L (3.5-5.1)
--- NOTE | 2017-06-06 06:28 | NUR ---
PT AWAKE, ALERT, ORIENTED, ASKING FOR COFFEE, NO OTHER NEEDS. CONTINUE TO MONITOR CLOSELY.
[2017-06-06 08:32] VITALS: BP 139/77
[2017-06-06 12:05] VITALS: BP 143/82
[2017-06-06] MEDS ORDERED: BROVANA15 MCG/2 M INH (13:37)
[2017-06-06] MEDS ORDERED: PREDNISONE10 MG PO (13:38)
--- NOTE | 2017-06-06 15:16 | NUR ---
D/C - WRITTEN AND VERBAL D/C INSTRUCTIONS GIVEN TO PT. IV TO LEFT FA D/C, CATH TIP INTACT, 2X2 DRESSING APPLIED AND SECURED WITH TAPE. PT TOLERATED WELL. PT IS CALLING TO PICK HIM UP. WILL CONTINUE TO MONITOR
--- NOTE | 2017-06-06 16:59 | NUR ---
PT LEFT FLOOR VIA WHEELCHAIR. WILL D/C
--- NOTE | 2017-06-12 14:06 | CN ---
PATIENT NAME:KAREN BIRMINGHAM SR MEDICAL RECORD: [id number] : [birth year] LOCATION:[facility] D.2139 ADMIT DATE: 05/28/17 ACCOUNT: [id number] CONSULTING PHYSICIAN: CASSI MORTENSEN MD REFERRING PHYSICIAN: TROY LEHMAN MD DATE OF CONSULTATION: 05/29/2017 CONSULT REQUESTING PHYSICIAN: Dr. Georgia Lehman. REASON FOR CONSULTATION: Acute exacerbation of chronic obstructive pulmonary disease, dyspnea. HISTORY OF PRESENT ILLNESS: Mr. Birmingham is a 71-year-old gentleman who was just discharged home last week. The patient went home, he was smoking. He has a worsening shortness of breath. Denies any fever or any chills. He has cough with very little sputum production. The patient came into the ER. On evaluation, we found that the chest x-ray, pneumonia has been resolved, but his CO2 was in 60s. REVIEW OF SYSTEMS: Mainly in the history of present illness. PAST MEDICAL HISTORY: 1. COPD. 2. Asthma. 3. History of pneumonia. 4. Chronic hypoxic respiratory failure. 5. Tobacco dependence syndrome. 6. Congestive heart failure, chronic diastolic dysfunction. PAST SURGICAL HISTORY: Appendectomy. PERSONAL AND SOCIAL HISTORY: The patient is still a current everyday smoker. He is a nondrinker. FAMILY HISTORY: Noncontributory. PHYSICAL EXAMINATION: GENERAL: Now, the patient is lying comfortably in bed. He is not in acute distress. VITAL SIGNS: The blood pressure is 133/66, pulse is 72, respiration is 24, temperature 98.1, and SPO2 is 90% on 3 liters nasal cannula. HEENT: Conjunctivae pink, sclerae nonicteric. NECK: Neck is supple, no JVD. CHEST: The chest excursion is minimal on both sides. There are wheezes on forceful expiration. HEART: Rhythm regular, normal sound, no murmur. ABDOMEN: Abdomen is soft. Bowel sounds present. No hepatosplenomegaly. RECTAL: Deferred. EXTREMITIES: No cyanosis, no clubbing, no pedal edema. SKIN: The skin is warm, normal turgor. CENTRAL NERVOUS SYSTEM: The patient is awake and alert. There are no obvious cranial nerve abnormality. The gait was not tested. CHEST RADIOGRAPH: No infiltrate. The infiltrate on the previous admission has been resolved. CONSULT REPORT [id number] [facility] DATA: CBC: WBC 10.3, hemoglobin 13.2, hematocrit 41.3, platelet count 104. Chemistry: Sodium 134, potassium 4.1, bicarbonate is 41.1, BUN is 17, creatinine 0.9, glucose 126. ABG: The pH is 7.42, pCO2 of 60.8, pO2 of 74, bicarbonate is 39.5. IMPRESSION: 1. Acute exacerbation of chronic obstructive pulmonary disease. 2. Possible associated tracheobronchitis. 3. Wdgxu-iu-ubuadoh hypoxic hypercapnic respiratory failure. 4. Tobacco dependence syndrome. 5. Obstructive sleep apnea. 6. Asthma-COPD overlap syndrome. 7. Chronic congestive heart failure, most likely chronic diastolic dysfunction. RECOMMENDATIONS: 1. The patient was counseled to quit smoking. 2. Start him on albuterol, ipratropium nebulizer and start on Brovana, budesonide nebulizer. 3. Methylprednisolone IV. 4. Singulair and Daliresp. 5. Antitussive and mucolytics. 6. BiPAP at night, the patient can get his own CPAP machine from home. Dr. Lehman, thank you for involving me in the care of Mr. Birmingham. TRANSINT:[id number] Voice Confirmation ID: [id number] DOCUMENT ID: [id number] CASSI MORTENSEN MD at 1406 CC: SEKOU AVELAR MD [id number] DICTATION DATE: 05/29/17 1445 STEEL SHOT HEADER OPERATOR: 05/29/17 1604 DIS IN 06/06/17 [place] [id number] [place] [id number]
== END 2017-06-06 16:00 | disposition home or self-care (01) | DRG 193 ==
LOC: D.ER 15:35 → D.M2 18:44
PROVIDERS: Emergency Medicine; Internal Medicine Pulmonary Disease; ADMIT Family Medicine
PROC: 5A09557 Assistance with Respiratory Ventilation, Greater than 96 Consecutive Hours, Continuous Positive Airway Pressure (ICD-10-PCS; principal; 2017-05-30)
DX: J11.00 Influenza due to unidentified influenza virus with unspecified type of pneumonia (principal); J96.22 Acute and chronic respiratory failure with hypercapnia; J96.21 Acute and chronic respiratory failure with hypoxia; J44.1 Chronic obstructive pulmonary disease with (acute) exacerbation; J44.0 Chronic obstructive pulmonary disease with (acute) lower respiratory infection; I50.32 Chronic diastolic (congestive) heart failure; M35.1 Other overlap syndromes; F17.200 Nicotine dependence, unspecified, uncomplicated; D64.9 Anemia, unspecified; G47.33 Obstructive sleep apnea (adult) (pediatric); G89.29 Other chronic pain

== ENCOUNTER 2017-08-15 00:27 | Inpatient (IN) | payer MEDICARE ==
[~2017-08-15] VITALS: Ht 182.9 cm; Wt 99.0 kg
--- NOTE | ~2017-08-15 | EC ---
PATIENT:KAREN VALLE SR DATE OF SERVICE: 08/15/17 SEX: M MEDICAL RECORD: [id number] DATE OF : [birth year] LOCATION:D.M2 D.211 AGE OF PATIENT: 72 ADMISSION DATE: 08/15/17 REFERRING PHYSICIAN: INTERPRETING PHYSICIAN: YARI KIRKLAND MD ECHOCARDIOGRAM REPORT ECHO CHARGES 4 ECHO COMPLETE CLINICAL DIAGNOSIS: CHF ECHOCARDIOGRAPHIC MEASUREMENTS (adult normal given) AC root (d.<3.7cm) 3.9 cm LV Septum d (<1.2 cm> 1.9 cm Valve Excursion 1.9 cm LV Septum (systole) 2.1 cm Left Atria (s.<4.0cm> 3.7 cm LVPW d(<1.2cm) 1.7 cm RV (d.<2.3cm) 4.5 cm LVPW (sytole) 2.0 cm LV diastole(<5.6CM) 6.2 cm MV E-F(>70mm/sec) cm LV systole 4.4 cm LVOT Diameter 2.3 cm MV exc.(>10mm) 2.0 cm Est.ejection fraction (50-75%) % Pericardial Effusion N DOPPLER: LVIT cm/sec A 115 cm/sec E 80.0 cm/sec LA cm/sec RVSP 23 mmHg LVOT cm/sec AOP1/2T m/s Asc. Ao cm/sec RVOT cm/sec RA cm/sec PA cm/sec AV Gradient Peak 4.0 mmHg AV Mean 2.0 mmHg AV Area 30 cm MV Gradient Peak 6.81 mmHg MV Mean 3.00 mmHg MV Area cm COMMENTS: Manager [place]: Susanne RIOS Caustic Operator: 3 Dr. Lee TAPE# PACS DATE OF SERVICE: 08/16/2017 Adequate 2D echo, color flow, spectral Doppler, and M-mode. LVH is present. LV internal dimension is normal. Wall motion is normal. EF is greater than equal to 55%. Aortic valve is sclerotic; however, there is no evidence of stenosis on Doppler interrogation. Left atrium is normal at 3.7 cm. Mitral valve is thickened. Trace MR. Right-sided chambers grossly normal. Mild TR. ECHOCARDIOGRAM REPORT [id number] KAREN VALLE TRANSINT:[id number] Voice Confirmation ID: [id number] DOCUMENT ID: [id number] YARI KIRKLAND MD at 0919 CC: [id number] DICTATION DATE: 08/16/[address] SQL DEVELOPER: 08/16/17 2336 DIS IN 08/20/17 [place] [id number] [place] [address]
--- NOTE | ~2017-08-15 | EC ---
PATIENT:KAREN VALLE SR DATE OF SERVICE: 08/15/17 SEX: M MEDICAL RECORD: [id number] DATE OF : [birth year] LOCATION:D. D.211 AGE OF PATIENT: 72 ADMISSION DATE: 08/15/17 REFERRING PHYSICIAN: INTERPRETING PHYSICIAN: BRITTNEY PEARSON MD ECHOCARDIOGRAM REPORT ECHO CHARGES 4 ECHO COMPLETE CLINICAL DIAGNOSIS: CHF ECHOCARDIOGRAPHIC MEASUREMENTS (adult normal given) AC root (d.<3.7cm) 3.9 cm LV Septum d (<1.2 cm> 1.9 cm Valve Excursion 1.9 cm LV Septum (systole) 2.1 cm Left Atria (s.<4.0cm> 3.7 cm LVPW d(<1.2cm) 1.7 cm RV (d.<2.3cm) 4.5 cm LVPW (sytole) 2.0 cm LV diastole(<5.6CM) 6.2 cm MV E-F(>70mm/sec) cm LV systole 4.4 cm LVOT Diameter 2.3 cm MV exc.(>10mm) 2.0 cm Est.ejection fraction (50-75%) % Pericardial Effusion N DOPPLER: LVIT cm/sec A 115 cm/sec E 80.0 cm/sec LA cm/sec RVSP 23 mmHg LVOT cm/sec AOP1/2T m/s Asc. Ao cm/sec RVOT cm/sec RA cm/sec PA cm/sec AV Gradient Peak 4.0 mmHg AV Mean 2.0 mmHg AV Area 30 cm MV Gradient Peak 6.81 mmHg MV Mean 3.00 mmHg MV Area cm COMMENTS: Automatic Buffing Wheel Former: 2 QUAN RIOS Tool Tender: 3 Dr. Lee TAPE# PACS DATE OF SERVICE: 08/18/2017 PROCEDURE: Transthoracic echocardiogram. FINDINGS: 1. The left ventricle appears to be hyperdynamic. It is difficult to visualize and is more qualitative study, but overall the ejection fraction appears to be 65% to 70%, but again difficult to visualize all areas. 2. The right ventricle has right ventricular hypertrophy is mildly dilated. 3. Left atrium appears to be grossly normal. ECHOCARDIOGRAM REPORT [id number] KAREN VALLE SR 4. The tricuspid valve has mild tricuspid regurgitation. 5. The right ventricle is dilated as well as the right atrium with normal function. 6. The pericardium appears to be mildly thickened with mild effusion. TRANSINT:[id number] Voice Confirmation ID: [id number] DOCUMENT ID: [id number] BRITTNEY PEARSON MD at 1214 CC: [id number] DICTATION DATE: 08/18/17 1209 PASTEURISER OPERATOR: 08/18/17 1244 ADM IN [facility] [address] [id number]
[~2017-08-15 00:27] MED LIST changes: +ALBUTEROL2.5 MG/3 M INH; +SYMBICORT 16010.2 GM INH
[2017-08-15 00:59] LABS: BASOPHILS 0.2 % (0-2); EOSINOPHILS 0.5 % (0-7); HEMATOCRIT 40.8 % (42.0-54.0); HEMOGLOBIN 13.2 g/dL (13.5-17.5); IMMATURE GRANULOCYTES 0.3 % (0-5); MCH 33.2 pg (26.0-34.0); MCHC 32.4 g/dL (31.0-37.0); MCV 102.8 fL (80.0-100.0); MEAN PLATELET VOLUME 10.9 fL (7.4-10.4); MONOCYTES 14.1 % (2-11); NEUTROPHILS 72.9 % (40-80); PLATELET COUNT 161 10x3/uL (130-400); RBC 3.97 10x6/uL (4.20-6.10); RDW 12.9 % (11.5-14.5); WBC 15.1 10x3/uL (4.8-10.8)
[2017-08-15 01:13] LABS: ALKALINE PHOSPHATASE 66 U/L (46-116); ALT (SGPT) 15 U/L (10-68); BILIRUBIN - TOTAL 0.55 mg/dL (0.2-1.3); CALC OSMOLALITY 275 mosm/kg (275-300); CALCIUM 8.9 mg/dL (8.5-10.1); CARBON DIOXIDE 33.5 mmol/L (21.0-32.0); CHLORIDE - SERUM 100 mmol/L (98-107); CREATININE - SERUM 0.9 mg/dL (0.6-1.3); POTASSIUM - SERUM 4.4 mmol/L (3.5-5.1); PROTEIN - SERUM 7.7 g/dL (6.4-8.2); SODIUM 137 mmol/L (136-145); UREA NITROGEN 12 mg/dL (7-18); eGFR NON AFRICAN AMERICAN 88 mL/min (90-120)
[2017-08-15 01:14] LABS: GLUCOSE 129 mg/dL (74-106)
[2017-08-15 01:22] LABS: PRO BNP 192 pg/mL (0-125)
[2017-08-15 01:23] LABS: TROPONIN-I < 0.017 ng/mL (0.000-0.060)
[2017-08-15 01:45] LABS: APPEARANCE CLEAR (CLEAR); BILIRUBIN NEGATIVE (NEGATIVE); COLOR YELLOW (YELLOW); GLUCOSE NEGATIVE (NEGATIVE); KETONE NEGATIVE (NEGATIVE); NITRITE NEGATIVE (NEGATIVE); PROTEIN NEGATIVE (NEGATIVE); UROBILINOGEN NORMAL (NORMAL)
[2017-08-15 03:42] VITALS: BP 127/74; BMI 29.7
[2017-08-15 05:17] VITALS: BP 127/74
[2017-08-15 08:39] VITALS: BP 122/74
[2017-08-15 13:04] VITALS: Ht 182.9 cm; Wt 99.0 kg
[2017-08-15 14:23] VITALS: BP 140/74
[2017-08-15 16:53] VITALS: BP 161/70
[2017-08-15 20:38] VITALS: BP 111/65
[2017-08-16 00:18] VITALS: BP 122/68
[2017-08-16 05:48] VITALS: BP 106/55
[2017-08-16 06:01] LABS: BASOPHILS 0 % (0-2); EOSINOPHILS 0 % (0-7); HEMATOCRIT 38.7 % (42.0-54.0); HEMOGLOBIN 12.7 g/dL (13.5-17.5); IMMATURE GRANULOCYTES 0.3 % (0-5); LYMPHOCYTES 5.4 % (15-50); MCH 33.1 pg (26.0-34.0); MCHC 32.8 g/dL (31.0-37.0); MCV 100.8 fL (80.0-100.0); MEAN PLATELET VOLUME 11.3 fL (7.4-10.4); MONOCYTES 4.2 % (2-11); NEUTROPHILS 90.1 % (40-80); PLATELET COUNT 163 10x3/uL (130-400); RBC 3.84 10x6/uL (4.20-6.10); RDW 12.5 % (11.5-14.5); WBC 17.5 10x3/uL (4.8-10.8)
[2017-08-16 06:29] LABS: ANION GAP 9.6 mmol/L (8-16); CALCIUM 9.2 mg/dL (8.5-10.1); CARBON DIOXIDE 34.4 mmol/L (21.0-32.0); MAGNESIUM - SERUM 1.8 mg/dL (1.8-2.4); PHOSPHOROUS 2.6 mg/dL (2.5-4.9)
[2017-08-16 06:30] LABS: CHOL - HDL RATIO 4.7 ratio (2.3-4.9); CREATININE - SERUM 1.2 mg/dL (0.6-1.3); LDL-HDL RATIO 3.3 ratio (1.5-3.5)
[2017-08-16 09:08] VITALS: BP 120/58
[2017-08-16 11:52] VITALS: BP 119/59
[2017-08-16 16:32] VITALS: BP 115/60
[2017-08-16 20:00] VITALS: BP 125/61
[2017-08-17 04:00] VITALS: BP 133/63
[2017-08-17 07:31] LABS: BASOPHILS 0.1 % (0-2); EOSINOPHILS 0 % (0-7); HEMATOCRIT 39.3 % (42.0-54.0); IMMATURE GRANULOCYTES 0.5 % (0-5); LYMPHOCYTES 6.4 % (15-50); MCH 32.7 pg (26.0-34.0); MCHC 33.1 g/dL (31.0-37.0); MEAN PLATELET VOLUME 10.9 fL (7.4-10.4); MONOCYTES 6.4 % (2-11); NEUTROPHILS 86.6 % (40-80); PLATELET COUNT 185 10x3/uL (130-400); RBC 3.97 10x6/uL (4.20-6.10); RDW 12.3 % (11.5-14.5); WBC 15.2 10x3/uL (4.8-10.8)
[2017-08-17 07:42] LABS: CALC OSMOLALITY 284 mosm/kg (275-300); CALCIUM 8.3 mg/dL (8.5-10.1); CHLORIDE - SERUM 96 mmol/L (98-107); GLUCOSE 210 mg/dL (74-106); POTASSIUM - SERUM 3.4 mmol/L (3.5-5.1); SODIUM 138 mmol/L (136-145); UREA NITROGEN 20 mg/dL (7-18); eGFR NON AFRICAN AMERICAN 78 mL/min (90-120)
[2017-08-17 08:59] VITALS: BP 123/83
[2017-08-17 13:10] VITALS: BP 123/58
[2017-08-17 15:55] VITALS: BP 123/74
[2017-08-17 22:47] VITALS: BP 126/80
[2017-08-18 01:33] VITALS: BP 131/61
[2017-08-18 05:53] VITALS: BP 131/68
[2017-08-18 06:56] LABS: BASOPHILS 0.1 % (0-2); EOSINOPHILS 0 % (0-7); IMMATURE GRANULOCYTES 1.1 % (0-5); LYMPHOCYTES 11.2 % (15-50); MCH 32.2 pg (26.0-34.0); MCHC 32.5 g/dL (31.0-37.0); MEAN PLATELET VOLUME 11.3 fL (7.4-10.4); MONOCYTES 10.1 % (2-11); NEUTROPHILS 77.5 % (40-80); PLATELET COUNT 183 10x3/uL (130-400); RBC 4.04 10x6/uL (4.20-6.10); RDW 12.6 % (11.5-14.5)
[2017-08-18 06:58] LABS: WBC 10.6 10x3/uL (4.8-10.8)
[2017-08-18 07:06] LABS: CALC OSMOLALITY 280 mosm/kg (275-300); CALCIUM 8.9 mg/dL (8.5-10.1); CARBON DIOXIDE 35.8 mmol/L (21.0-32.0); CHLORIDE - SERUM 96 mmol/L (98-107); GLUCOSE 194 mg/dL (74-106); POTASSIUM - SERUM 4.2 mmol/L (3.5-5.1); SODIUM 136 mmol/L (136-145); UREA NITROGEN 23 mg/dL (7-18); eGFR NON AFRICAN AMERICAN 78 mL/min (90-120)
[2017-08-18 08:07] VITALS: BP 132/65
[2017-08-18 11:43] VITALS: BP 125/74
[2017-08-18 15:22] VITALS: BP 137/69
[2017-08-18 19:00] VITALS: BP 130/73
[2017-08-19] VITALS: BP 121/72
[2017-08-19 04:00] VITALS: BP 137/77
[2017-08-19 05:28] LABS: BASOPHILS 0.3 % (0-2); EOSINOPHILS 0 % (0-7); HEMATOCRIT 41.4 % (42.0-54.0); HEMOGLOBIN 13.7 g/dL (13.5-17.5); IMMATURE GRANULOCYTES 2.7 % (0-5); LYMPHOCYTES 11.5 % (15-50); MCH 32.5 pg (26.0-34.0); MCHC 33.1 g/dL (31.0-37.0); MCV 98.3 fL (80.0-100.0); MEAN PLATELET VOLUME 11.3 fL (7.4-10.4); MONOCYTES 10.5 % (2-11); PLATELET COUNT 178 10x3/uL (130-400); RBC 4.21 10x6/uL (4.20-6.10); RDW 12.6 % (11.5-14.5); WBC 9.7 10x3/uL (4.8-10.8)
[2017-08-19 05:48] LABS: ANION GAP 9.7 mmol/L (8-16); CALCIUM 8.8 mg/dL (8.5-10.1); CARBON DIOXIDE 33.6 mmol/L (21.0-32.0); CREATININE - SERUM 1.1 mg/dL (0.6-1.3); POTASSIUM - SERUM 4.3 mmol/L (3.5-5.1)
[2017-08-19 11:09] VITALS: BP 104/66
[2017-08-19 16:13] VITALS: BP 128/65
[2017-08-19 20:00] VITALS: BP 105/64
[2017-08-20 04:00] VITALS: BP 126/78
[2017-08-20 06:36] LABS: BASOPHILS 0.6 % (0-2); EOSINOPHILS 0.4 % (0-7); HEMOGLOBIN 13.8 g/dL (13.5-17.5); IMMATURE GRANULOCYTES 6.9 % (0-5); LYMPHOCYTES 26.5 % (15-50); MCH 32.5 pg (26.0-34.0); MCHC 32.9 g/dL (31.0-37.0); MCV 98.8 fL (80.0-100.0); MEAN PLATELET VOLUME 10.9 fL (7.4-10.4); MONOCYTES 12.6 % (2-11); PLATELET COUNT 191 10x3/uL (130-400); RBC 4.25 10x6/uL (4.20-6.10); RDW 12.5 % (11.5-14.5); WBC 13.9 10x3/uL (4.8-10.8)
[2017-08-20 06:56] LABS: CALC OSMOLALITY 277 mosm/kg (275-300); CALCIUM 8.3 mg/dL (8.5-10.1); CARBON DIOXIDE 35.6 mmol/L (21.0-32.0); CHLORIDE - SERUM 96 mmol/L (98-107); CREATININE - SERUM 0.9 mg/dL (0.6-1.3); GLUCOSE 131 mg/dL (74-106); POTASSIUM - SERUM 3.5 mmol/L (3.5-5.1); SODIUM 136 mmol/L (136-145); UREA NITROGEN 24 mg/dL (7-18); eGFR NON AFRICAN AMERICAN 88 mL/min (90-120)
[2017-08-20 08:00] VITALS: BP 119/71
[2017-08-20] MEDS ORDERED: MUCINEX DM ER1 EAC1 PO (11:11)
[2017-08-20] MEDS ORDERED: LEVAQUIN750 MG PO (11:12)
[2017-08-20] MEDS ORDERED: PREDNISONE10 MG PO (11:12)
[2017-08-20 12:34] VITALS: BP 110/64
== END 2017-08-20 16:35 | disposition home or self-care (01) | DRG 177 ==
LOC: D.ER 00:27 → D.M2 01:52
PROVIDERS: Internal Medicine Nephrology; Physician Assistant Medical
PROC: 0T9B70Z Drainage of Bladder with Drainage Device, Via Natural or Artificial Opening (ICD-10-PCS; principal; 2017-08-15)
DX: J15.6 Pneumonia due to other Gram-negative bacteria (principal); I50.33 Acute on chronic diastolic (congestive) heart failure; J96.21 Acute and chronic respiratory failure with hypoxia; J96.22 Acute and chronic respiratory failure with hypercapnia; J44.0 Chronic obstructive pulmonary disease with (acute) lower respiratory infection; J44.1 Chronic obstructive pulmonary disease with (acute) exacerbation; M35.1 Other overlap syndromes; N17.9 Acute kidney failure, unspecified; J13 Pneumonia due to Streptococcus pneumoniae; Z99.81 Dependence on supplemental oxygen; G47.33 Obstructive sleep apnea (adult) (pediatric); D64.9 Anemia, unspecified; Z72.0 Tobacco use

== ENCOUNTER 2017-08-29 23:23 | Observation (INO) | payer MEDICARE ==
[~2017-08-29] VITALS: Ht 182.9 cm; Wt 97.5 kg
[~2017-08-29 23:23] MED LIST changes: +MUCINEX DM ER1 EAC1 PO
[2017-08-29 23:56] LABS: BASOPHILS 0.3 % (0-2); EOSINOPHILS 0 % (0-7); HEMATOCRIT 43.4 % (42.0-54.0); HEMOGLOBIN 13.8 g/dL (13.5-17.5); IMMATURE GRANULOCYTES 0.3 % (0-5); LYMPHOCYTES 10.9 % (15-50); MCH 32.9 pg (26.0-34.0); MCHC 31.8 g/dL (31.0-37.0); MCV 103.3 fL (80.0-100.0); MEAN PLATELET VOLUME 10.8 fL (7.4-10.4); NEUTROPHILS 78.5 % (40-80); PLATELET COUNT 167 10x3/uL (130-400); RDW 13.1 % (11.5-14.5); WBC 11.5 10x3/uL (4.8-10.8)
[2017-08-30 00:37] LABS: ALBUMIN 3.2 g/dL (3.4-5.0); ALKALINE PHOSPHATASE 74 U/L (46-116); ALT (SGPT) 22 U/L (10-68); BILIRUBIN - TOTAL 0.31 mg/dL (0.2-1.3); CALC OSMOLALITY 271 mosm/kg (275-300); CALCIUM 8.9 mg/dL (8.5-10.1); CARBON DIOXIDE 38.7 mmol/L (21.0-32.0); CHLORIDE - SERUM 94 mmol/L (98-107); GLUCOSE 176 mg/dL (74-106); POTASSIUM - SERUM 4.2 mmol/L (3.5-5.1); PROTEIN - SERUM 7.6 g/dL (6.4-8.2); SODIUM 134 mmol/L (136-145); UREA NITROGEN 13 mg/dL (7-18); eGFR NON AFRICAN AMERICAN 78 mL/min (90-120)
[2017-08-30 04:00] VITALS: BP 140/76
[2017-08-30 07:18] VITALS: BP 140/76; BMI 29.9
[2017-08-30 08:10] VITALS: BP 144/72
[2017-08-30 09:23] VITALS: Ht 182.9 cm; Wt 97.5 kg
[2017-08-30 12:04] VITALS: BP 155/77
[2017-08-30 15:32] VITALS: BP 130/94
[2017-08-30 21:35] VITALS: BP 139/86
[2017-08-31 01:24] VITALS: BP 117/74
[2017-08-31 04:49] LABS: BASOPHILS 0.4 % (0-2); EOSINOPHILS 0.2 % (0-7); HEMATOCRIT 42.4 % (42.0-54.0); HEMOGLOBIN 13.3 g/dL (13.5-17.5); IMMATURE GRANULOCYTES 0.3 % (0-5); LYMPHOCYTES 25.1 % (15-50); MCH 32.2 pg (26.0-34.0); MCHC 31.4 g/dL (31.0-37.0); MCV 102.7 fL (80.0-100.0); MEAN PLATELET VOLUME 10.8 fL (7.4-10.4); MONOCYTES 12.7 % (2-11); NEUTROPHILS 61.3 % (40-80); PLATELET COUNT 143 10x3/uL (130-400); RBC 4.13 10x6/uL (4.20-6.10); RDW 12.7 % (11.5-14.5); WBC 11.5 10x3/uL (4.8-10.8)
[2017-08-31 05:01] LABS: CALCIUM 8.9 mg/dL (8.5-10.1); CHLORIDE - SERUM 91 mmol/L (98-107); GLUCOSE 211 mg/dL (74-106); PHOSPHOROUS 3.3 mg/dL (2.5-4.9); POTASSIUM - SERUM 3.6 mmol/L (3.5-5.1); SODIUM 136 mmol/L (136-145); eGFR NON AFRICAN AMERICAN 78 mL/min (90-120)
[2017-08-31 05:05] LABS: CALC OSMOLALITY 279 mosm/kg (275-300); UREA NITROGEN 18 mg/dL (7-18)
[2017-08-31 05:06] LABS: CARBON DIOXIDE 43.4 mmol/L (21.0-32.0)
[2017-08-31 06:30] VITALS: BP 117/74
[2017-08-31 09:10] VITALS: BP 112/72
[2017-08-31 12:42] VITALS: BP 112/68
[2017-08-31 16:26] VITALS: BP 117/59
[2017-08-31 20:43] VITALS: BP 108/66
[2017-09-01] VITALS: BP 131/77
[2017-09-01 05:39] LABS: BASOPHILS 0.3 % (0-2); EOSINOPHILS 0.2 % (0-7); HEMATOCRIT 43.9 % (42.0-54.0); HEMOGLOBIN 14.3 g/dL (13.5-17.5); IMMATURE GRANULOCYTES 0.6 % (0-5); LYMPHOCYTES 15.2 % (15-50); MCH 32.9 pg (26.0-34.0); MCHC 32.6 g/dL (31.0-37.0); MCV 100.9 fL (80.0-100.0); MONOCYTES 4.1 % (2-11); NEUTROPHILS 79.6 % (40-80); PLATELET COUNT 142 10x3/uL (130-400); RBC 4.35 10x6/uL (4.20-6.10); RDW 12.4 % (11.5-14.5); WBC 10.5 10x3/uL (4.8-10.8)
[2017-09-01 05:46] LABS: CALC OSMOLALITY 280 mosm/kg (275-300); CALCIUM 9.1 mg/dL (8.5-10.1); CHLORIDE - SERUM 92 mmol/L (98-107); GLUCOSE 206 mg/dL (74-106); SODIUM 136 mmol/L (136-145); UREA NITROGEN 22 mg/dL (7-18); eGFR NON AFRICAN AMERICAN 78 mL/min (90-120)
[2017-09-01 05:57] LABS: CARBON DIOXIDE 40.6 mmol/L (21.0-32.0)
[2017-09-01 09:19] VITALS: BP 134/84
[2017-09-01 11:39] VITALS: BP 136/88
[2017-09-01 15:32] VITALS: BP 122/48
[2017-09-01 16:09] LABS: APPEARANCE CLEAR (CLEAR); BILIRUBIN NEGATIVE (NEGATIVE); COLOR YELLOW (YELLOW); GLUCOSE 1000 mg/dL (NEGATIVE); KETONE NEGATIVE (NEGATIVE); NITRITE NEGATIVE (NEGATIVE); PROTEIN NEGATIVE (NEGATIVE); UROBILINOGEN NORMAL (NORMAL)
[2017-09-01 16:13] LABS: RED CELLS - URINE 0-5 /hpf (0-5)
[2017-09-01 16:14] LABS: EPITHELIAL CELLS OCC /hpf (0-5)
[2017-09-01 19:00] VITALS: BP 120/76
[2017-09-02 04:00] VITALS: BP 128/75
[2017-09-02 06:43] LABS: BASOPHILS 0 % (0-2); EOSINOPHILS 0 % (0-7); HEMATOCRIT 38.4 % (42.0-54.0); HEMOGLOBIN 12.7 g/dL (13.5-17.5); IMMATURE GRANULOCYTES 0.2 % (0-5); LYMPHOCYTES 8.9 % (15-50); MCH 32.2 pg (26.0-34.0); MCHC 33.1 g/dL (31.0-37.0); MCV 97.5 fL (80.0-100.0); MONOCYTES 4.2 % (2-11); NEUTROPHILS 86.7 % (40-80); PLATELET COUNT 129 10x3/uL (130-400); RBC 3.94 10x6/uL (4.20-6.10); RDW 12.1 % (11.5-14.5); WBC 10.4 10x3/uL (4.8-10.8)
[2017-09-02 06:54] LABS: CALC OSMOLALITY 282 mosm/kg (275-300); CALCIUM 8.8 mg/dL (8.5-10.1); CARBON DIOXIDE 34.5 mmol/L (21.0-32.0); CHLORIDE - SERUM 95 mmol/L (98-107); GLUCOSE 246 mg/dL (74-106); SODIUM 135 mmol/L (136-145); UREA NITROGEN 26 mg/dL (7-18); eGFR NON AFRICAN AMERICAN 78 mL/min (90-120)
[2017-09-02 09:21] VITALS: BP 138/81
[2017-09-02 13:01] VITALS: BP 122/78
[2017-09-02 17:36] VITALS: BP 165/73
[2017-09-02 19:00] VITALS: BP 120/74
[2017-09-03] VITALS: BP 134/72
[2017-09-03 04:00] VITALS: BP 118/71
[2017-09-03 05:49] LABS: BASOPHILS 0.1 % (0-2); EOSINOPHILS 0.3 % (0-7); HEMATOCRIT 40.6 % (42.0-54.0); HEMOGLOBIN 13.1 g/dL (13.5-17.5); IMMATURE GRANULOCYTES 0.4 % (0-5); LYMPHOCYTES 35.5 % (15-50); MCH 32.3 pg (26.0-34.0); MCHC 32.3 g/dL (31.0-37.0); MCV 100.2 fL (80.0-100.0); MEAN PLATELET VOLUME 11.1 fL (7.4-10.4); MONOCYTES 7.6 % (2-11); NEUTROPHILS 56.1 % (40-80); PLATELET COUNT 130 10x3/uL (130-400); RBC 4.05 10x6/uL (4.20-6.10); RDW 12.5 % (11.5-14.5); WBC 9.6 10x3/uL (4.8-10.8)
[2017-09-03 06:13] LABS: ANION GAP 8.2 mmol/L (8-16); CALCIUM 8.5 mg/dL (8.5-10.1); CARBON DIOXIDE 36.3 mmol/L (21.0-32.0); CREATININE - SERUM 1.1 mg/dL (0.6-1.3); POTASSIUM - SERUM 3.5 mmol/L (3.5-5.1)
[2017-09-03 08:41] VITALS: BP 135/69
[2017-09-03 12:01] VITALS: BP 130/70
[2017-09-03 16:09] VITALS: BP 128/82
[2017-09-03 19:00] VITALS: BP 118/73
[2017-09-04 04:00] VITALS: BP 141/74
[2017-09-04 06:20] LABS: BASOPHILS 0 % (0-2); EOSINOPHILS 0 % (0-7); HEMATOCRIT 40.7 % (42.0-54.0); HEMOGLOBIN 13.2 g/dL (13.5-17.5); IMMATURE GRANULOCYTES 0.5 % (0-5); MCH 32.4 pg (26.0-34.0); MCHC 32.4 g/dL (31.0-37.0); MEAN PLATELET VOLUME 11.2 fL (7.4-10.4); MONOCYTES 7.6 % (2-11); NEUTROPHILS 76.9 % (40-80); PLATELET COUNT 144 10x3/uL (130-400); RBC 4.07 10x6/uL (4.20-6.10); RDW 12.4 % (11.5-14.5)
[2017-09-04 06:51] LABS: ANION GAP 7.6 mmol/L (8-16); CARBON DIOXIDE 35.3 mmol/L (21.0-32.0); CREATININE - SERUM 1.1 mg/dL (0.6-1.3); POTASSIUM - SERUM 3.9 mmol/L (3.5-5.1)
[2017-09-04 08:21] VITALS: BP 120/65
[2017-09-04 12:29] VITALS: BP 119/62
[2017-09-04] MEDS ORDERED: VIBRAMYCIN 100100 MG PO (14:56)
[2017-09-04 15:09] VITALS: BP 132/86
== END 2017-09-04 17:06 | disposition home or self-care (01) ==
LOC: D.ER 23:23 → OBSVTIME 08-30 01:15 → D.M2 08-30 01:15
PROVIDERS: Emergency Medicine; Internal Medicine Nephrology; Internal Medicine Pulmonary Disease
DX: J15.6 Pneumonia due to other Gram-negative bacteria (principal); J15.212 Pneumonia due to Methicillin resistant Staphylococcus aureus; J13 Pneumonia due to Streptococcus pneumoniae; J44.0 Chronic obstructive pulmonary disease with (acute) lower respiratory infection; J44.1 Chronic obstructive pulmonary disease with (acute) exacerbation; J96.22 Acute and chronic respiratory failure with hypercapnia; J96.21 Acute and chronic respiratory failure with hypoxia; I50.33 Acute on chronic diastolic (congestive) heart failure; F17.203 Nicotine dependence unspecified, with withdrawal; N17.9 Acute kidney failure, unspecified; G47.33 Obstructive sleep apnea (adult) (pediatric); Z99.81 Dependence on supplemental oxygen

== ENCOUNTER 2017-09-18 03:16 | Inpatient (IN) | payer MEDICARE ==
[~2017-09-18] VITALS: Ht 182.9 cm; Wt 98.2 kg
--- NOTE | ~2017-09-18 | CN ---
PATIENT NAME:KAREN BIRMNIGHAM MEDICAL RECORD: [id number] : 47 LOCATION:[facility] D.2112 ADMIT DATE: 09/18/17 ACCOUNT: [id number] CONSULTING PHYSICIAN: CASSI MORTENSEN MD REFERRING PHYSICIAN: TROY LEHMAN MD DATE OF CONSULTATION: 09/18/2017 CONSULT REQUESTING PHYSICIAN: Troy Lehman MD REASON FOR CONSULTATION: Acute exacerbation of COPD, bilateral pneumonia. HISTORY OF PRESENT ILLNESS: Mr. Birmingham is a 72-year-old gentleman who is very well known to me. The patient was just discharged 10 days ago from the hospital. According to the patient, for the last couple of days, he has shortness of breath with mild exertion. He is wheezing. He is coughing. Denies any chest pain. There is also some fever and chill. REVIEW OF THE SYSTEMS: Mainly in the history of present illness. PAST MEDICAL HISTORY: 1. Chronic hypoxic respiratory failure. 2. COPD of severe degree. 3. Asthma. 4. History of recurrent pneumonia, respiratory failure, and hospitalization. 5. Tobacco dependence syndrome. 6. Congestive heart failure with chronic diastolic dysfunction. PAST SURGICAL HISTORY: Appendectomy. ALLERGIES: There are no known drug allergies. MEDICATIONS: [email or web address] was reviewed. PERSONAL AND SOCIAL HISTORY: The patient still continues to smoke. He is nondrinker. FAMILY HISTORY: Noncontributory. PHYSICAL EXAMINATION: GENERAL: Now, the patient is lying comfortably in bed. He is in mild distress. VITAL SIGNS: Blood pressure is 127/72, pulse is 66, respiration is 24, temperature is 97, SpO2 is 93% on room air. HEENT: Conjunctivae are pink. Sclerae not icteric. NECK: Neck is supple. No JVD. CHEST: Chest excursion is minimal on both sides. There is bilateral wheezing and crackle. HEART: Rhythm regular. Normal sound. No murmur. ABDOMEN: Abdomen is soft. Bowel sounds present. No hepatosplenomegaly. RECTAL: Deferred. EXTREMITIES: No cyanosis. No clubbing. There is 1+ pedal edema. SKIN: The skin is warm. Normal turgor. CENTRAL NERVOUS SYSTEM: The patient is awake and alert. There is no obvious intracranial abnormality. The gait was not tested. IMAGING: CTA of the chest; there is no pulmonary embolism. There is bilateral CONSULT REPORT [id number] KAREN BIRMINGHAM SR infiltrate in right middle lobe, lingula, and right lower lobe. There are emphysematous changes. No PE. OTHER LABORATORY DATA: CBC; WBC 10.7, hemoglobin 11.5, hematocrit 36, and platelet count is 183. Chemistry; sodium 138, potassium 4.5, chloride 96, bicarb is 41.2, BUN is 12, creatinine 0.9. ABG; the pH is 7.37, pCO2 is 84.2, pO2 is 72, bicarb is 42. IMPRESSION: 1. Wjxnh-cw-vfvcznc hypoxic hypercapnic respiratory failure. 2. Respiratory acidosis secondary to hypercapnic respiratory failure. 3. Acute exacerbation of COPD. 4. Bilateral pneumonia, most likely hospital-acquired pneumonia. 5. Tobacco dependence syndrome. 6. CHF with chronic diastolic dysfunction. RECOMMENDATION: 1. Continue supplemental oxygen. 2. Adjust the dose of methylprednisolone IV. 3. Albuterol and ipratropium nebulizer. 4. Brovana and budesonide nebulizer. 5. Discontinue Zithromax. Discontinue Rocephin. Start on vancomycin, cefepime, and Levaquin for gram-negative rods and MRSA considering hospital-acquired pneumonia and recent hospitalization. Continue Daliresp. 6. Followup labs and chest radiograph. Dr. Lehman, thank you for involving me in the care of Mr. Birmingham. TRANSINT:[id number] Voice Confirmation ID: [id number] DOCUMENT ID: [id number] CASSI MORTENSEN MD at 1410 CC: TROY LEHMAN MD [id number] DICTATION DATE: 09/18/17 1559 SECURITY CONTROL ASSESSOR: 09/18/17 1706 ADM IN [facility] [address] [place] [address]
[~2017-09-18 03:16] MED LIST changes: +VIBRAMYCIN 100100 MG PO
[2017-09-18 04:06] LABS: BASOPHILS 0.1 % (0-2); EOSINOPHILS 0.1 % (0-7); HEMOGLOBIN 11.5 g/dL (13.5-17.5); IMMATURE GRANULOCYTES 0.2 % (0-5); MCH 32.7 pg (26.0-34.0); MCHC 31.9 g/dL (31.0-37.0); MCV 102.3 fL (80.0-100.0); MEAN PLATELET VOLUME 10.3 fL (7.4-10.4); MONOCYTES 10.9 % (2-11); NEUTROPHILS 76.7 % (40-80); RBC 3.52 10x6/uL (4.20-6.10); RDW 12.2 % (11.5-14.5); WBC 10.7 10x3/uL (4.8-10.8)
[2017-09-18 04:12] LABS: PLATELET COUNT 183 10x3/uL (130-400)
[2017-09-18 04:18] LABS: APTT 30.3 SECONDS (22.8-39.4)
[2017-09-18 04:20] LABS: D-DIMER-QUANTITATIVE 1.31 ug/mLFEU (0.20-0.54)
[2017-09-18 04:24] LABS: INR 1.16 (0.85-1.17); PROTIME 14.4 SECONDS (11.6-15.0)
[2017-09-18 04:34] LABS: ALBUMIN 2.6 g/dL (3.4-5.0); ALKALINE PHOSPHATASE 73 U/L (46-116); ALT (SGPT) 13 U/L (10-68); BILIRUBIN - TOTAL 0.43 mg/dL (0.2-1.3); CALC OSMOLALITY 281 mosm/kg (275-300); CHLORIDE - SERUM 96 mmol/L (98-107); CKMB 1.9 U/L (0.0-3.6); CREATINE KINASE 31 UL (21-232); CREATININE - SERUM 0.9 mg/dL (0.6-1.3); GLUCOSE 199 mg/dL (74-106); POTASSIUM - SERUM 4.5 mmol/L (3.5-5.1); PRO BNP 123 pg/mL (0-125); PROTEIN - SERUM 7.2 g/dL (6.4-8.2); SODIUM 138 mmol/L (136-145); UREA NITROGEN 12 mg/dL (7-18); eGFR NON AFRICAN AMERICAN 88 mL/min (90-120)
[2017-09-18 04:36] LABS: TROPONIN-I < 0.017 ng/mL (0.000-0.060)
[2017-09-18 04:37] LABS: CARBON DIOXIDE 41.2 mmol/L (21.0-32.0)
[2017-09-18 08:51] LABS: CKMB 1.6 U/L (0.0-3.6); CREATINE KINASE 27 UL (21-232)
[2017-09-18 08:54] LABS: TROPONIN-I < 0.017 ng/mL (0.000-0.060)
[2017-09-18 10:34] VITALS: BP 117/61; BMI 29.2
[2017-09-18 13:08] VITALS: BP 127/72
[2017-09-18 14:27] LABS: CKMB 1.4 U/L (0.0-3.6); CREATINE KINASE 28 UL (21-232); TROPONIN-I < 0.017 ng/mL (0.000-0.060)
[2017-09-18 16:03] VITALS: BP 142/83
[2017-09-18 20:00] VITALS: BP 114/61
[2017-09-18 20:48] LABS: CKMB 1.4 U/L (0.0-3.6); CREATINE KINASE 22 UL (21-232)
[2017-09-18 20:55] LABS: TROPONIN-I < 0.017 ng/mL (0.000-0.060)
[2017-09-19] VITALS: BP 108/66
[2017-09-19 04:00] VITALS: BP 115/56
[2017-09-19 04:20] LABS: BASOPHILS 0.1 % (0-2); EOSINOPHILS 0 % (0-7); HEMATOCRIT 35.1 % (42.0-54.0); HEMOGLOBIN 11.1 g/dL (13.5-17.5); IMMATURE GRANULOCYTES 0.5 % (0-5); LYMPHOCYTES 7.7 % (15-50); MCH 31.8 pg (26.0-34.0); MCHC 31.6 g/dL (31.0-37.0); MCV 100.6 fL (80.0-100.0); MEAN PLATELET VOLUME 10.3 fL (7.4-10.4); MONOCYTES 6.5 % (2-11); NEUTROPHILS 85.2 % (40-80); PLATELET COUNT 181 10x3/uL (130-400); RBC 3.49 10x6/uL (4.20-6.10); RDW 11.9 % (11.5-14.5); WBC 11.3 10x3/uL (4.8-10.8)
[2017-09-19 04:40] LABS: ALBUMIN 2.4 g/dL (3.4-5.0); ALKALINE PHOSPHATASE 73 U/L (46-116); ALT (SGPT) 11 U/L (10-68); BILIRUBIN - TOTAL 0.25 mg/dL (0.2-1.3); CALCIUM 8.9 mg/dL (8.5-10.1); CARBON DIOXIDE 38.6 mmol/L (21.0-32.0); CHLORIDE - SERUM 98 mmol/L (98-107); GLUCOSE 180 mg/dL (74-106); POTASSIUM - SERUM 4.4 mmol/L (3.5-5.1); PROTEIN - SERUM 6.9 g/dL (6.4-8.2); SODIUM 141 mmol/L (136-145); eGFR NON AFRICAN AMERICAN 78 mL/min (90-120)
[2017-09-19 04:45] LABS: CALC OSMOLALITY 287 mosm/kg (275-300); UREA NITROGEN 18 mg/dL (7-18)
[2017-09-19 06:42] VITALS: Ht 182.9 cm; Wt 98.2 kg
[2017-09-19 09:56] VITALS: BP 127/65
[2017-09-19 12:23] VITALS: BP 118/70
[2017-09-19 16:59] VITALS: BP 121/75
[2017-09-19 20:33] VITALS: BP 125/57
[2017-09-20 00:41] VITALS: BP 116/54
[2017-09-20 05:50] VITALS: BP 127/68
[2017-09-20 08:13] VITALS: BP 113/56
[2017-09-20 11:25] VITALS: BP 112/68
[2017-09-20 12:46] LABS: BASOPHILS 0.1 % (0-2); EOSINOPHILS 0 % (0-7); HEMATOCRIT 34.8 % (42.0-54.0); IMMATURE GRANULOCYTES 1.6 % (0-5); LYMPHOCYTES 7.5 % (15-50); MCH 31.9 pg (26.0-34.0); MCHC 31.6 g/dL (31.0-37.0); MCV 100.9 fL (80.0-100.0); MEAN PLATELET VOLUME 10.3 fL (7.4-10.4); MONOCYTES 7.9 % (2-11); NEUTROPHILS 82.9 % (40-80); PLATELET COUNT 167 10x3/uL (130-400); RBC 3.45 10x6/uL (4.20-6.10); RDW 12.2 % (11.5-14.5); WBC 11.8 10x3/uL (4.8-10.8)
[2017-09-20 13:25] LABS: CALC OSMOLALITY 298 mosm/kg (275-300); CALCIUM 8.1 mg/dL (8.5-10.1); CARBON DIOXIDE 35.9 mmol/L (21.0-32.0); CHLORIDE - SERUM 101 mmol/L (98-107); POTASSIUM - SERUM 4.7 mmol/L (3.5-5.1); SODIUM 142 mmol/L (136-145); UREA NITROGEN 17 mg/dL (7-18); eGFR NON AFRICAN AMERICAN 78 mL/min (90-120)
[2017-09-20 13:27] LABS: GLUCOSE 347 mg/dL (74-106)
[2017-09-20 15:44] VITALS: BP 113/77
[2017-09-20 20:30] VITALS: BP 109/85
[2017-09-21 00:30] VITALS: BP 135/77
[2017-09-21 04:30] VITALS: BP 111/59
[2017-09-21 05:47] LABS: BASOPHILS 0.2 % (0-2); EOSINOPHILS 0 % (0-7); HEMATOCRIT 32.8 % (42.0-54.0); HEMOGLOBIN 10.6 g/dL (13.5-17.5); IMMATURE GRANULOCYTES 4.7 % (0-5); LYMPHOCYTES 13.6 % (15-50); MCH 32.1 pg (26.0-34.0); MCHC 32.3 g/dL (31.0-37.0); MCV 99.4 fL (80.0-100.0); MEAN PLATELET VOLUME 10.1 fL (7.4-10.4); MONOCYTES 11.3 % (2-11); NEUTROPHILS 70.2 % (40-80); PLATELET COUNT 176 10x3/uL (130-400); RDW 12.1 % (11.5-14.5); WBC 12.2 10x3/uL (4.8-10.8)
[2017-09-21 06:02] LABS: ALBUMIN 2.3 g/dL (3.4-5.0); ALKALINE PHOSPHATASE 64 U/L (46-116); ALT (SGPT) 15 U/L (10-68); BILIRUBIN - TOTAL 0.18 mg/dL (0.2-1.3); CALC OSMOLALITY 288 mosm/kg (275-300); CALCIUM 8.5 mg/dL (8.5-10.1); CARBON DIOXIDE 38.1 mmol/L (21.0-32.0); CHLORIDE - SERUM 100 mmol/L (98-107); CREATININE - SERUM 0.9 mg/dL (0.6-1.3); GLUCOSE 213 mg/dL (74-106); MAGNESIUM - SERUM 2.2 mg/dL (1.8-2.4); PHOSPHOROUS 2.6 mg/dL (2.5-4.9); POTASSIUM - SERUM 3.9 mmol/L (3.5-5.1); PROTEIN - SERUM 5.9 g/dL (6.4-8.2); SODIUM 141 mmol/L (136-145); UREA NITROGEN 17 mg/dL (7-18); VANCOMYCIN - TROUGH 8.6 ug/mL (10.0-20.0); eGFR NON AFRICAN AMERICAN 88 mL/min (90-120)
[2017-09-21 08:29] VITALS: BP 120/74
[2017-09-21 11:31] VITALS: BP 119/69
[2017-09-21 15:47] VITALS: BP 128/77
[2017-09-21 20:30] VITALS: BP 118/70
[2017-09-22 00:30] VITALS: BP 121/77
[2017-09-22 04:30] VITALS: BP 121/74
[2017-09-22 05:24] LABS: BASOPHILS 0.4 % (0-2); EOSINOPHILS 0 % (0-7); HEMATOCRIT 37.1 % (42.0-54.0); LYMPHOCYTES 11.2 % (15-50); MCH 31.9 pg (26.0-34.0); MCHC 32.3 g/dL (31.0-37.0); MCV 98.7 fL (80.0-100.0); MEAN PLATELET VOLUME 10.5 fL (7.4-10.4); MONOCYTES 12.1 % (2-11); NEUTROPHILS 69.3 % (40-80); PLATELET COUNT 179 10x3/uL (130-400); RBC 3.76 10x6/uL (4.20-6.10); WBC 12.7 10x3/uL (4.8-10.8)
[2017-09-22 05:50] LABS: ALBUMIN 2.5 g/dL (3.4-5.0); ALKALINE PHOSPHATASE 73 U/L (46-116); CALCIUM 8.8 mg/dL (8.5-10.1); CHLORIDE - SERUM 96 mmol/L (98-107); CREATININE - SERUM 0.9 mg/dL (0.6-1.3); PHOSPHOROUS 3.1 mg/dL (2.5-4.9); PROTEIN - SERUM 6.4 g/dL (6.4-8.2); SODIUM 139 mmol/L (136-145); UREA NITROGEN 18 mg/dL (7-18); eGFR NON AFRICAN AMERICAN 88 mL/min (90-120)
[2017-09-22 05:52] LABS: ALT (SGPT) 54 U/L (10-68); CALC OSMOLALITY 288 mosm/kg (275-300); GLUCOSE 263 mg/dL (74-106); POTASSIUM - SERUM 4.5 mmol/L (3.5-5.1)
[2017-09-22 08:21] VITALS: BP 116/50
[2017-09-22 12:15] VITALS: BP 121/69
[2017-09-22 17:24] VITALS: BP 117/73
[2017-09-22 20:00] VITALS: BP 118/69
[2017-09-23 05:59] LABS: BASOPHILS 0.6 % (0-2); EOSINOPHILS 0 % (0-7); HEMATOCRIT 39.3 % (42.0-54.0); HEMOGLOBIN 12.7 g/dL (13.5-17.5); IMMATURE GRANULOCYTES 9.1 % (0-5); LYMPHOCYTES 11.7 % (15-50); MCH 32.1 pg (26.0-34.0); MCHC 32.3 g/dL (31.0-37.0); MCV 99.2 fL (80.0-100.0); MEAN PLATELET VOLUME 10.7 fL (7.4-10.4); MONOCYTES 8.7 % (2-11); NEUTROPHILS 69.9 % (40-80); PLATELET COUNT 188 10x3/uL (130-400); RBC 3.96 10x6/uL (4.20-6.10); RDW 11.9 % (11.5-14.5); WBC 14.1 10x3/uL (4.8-10.8)
[2017-09-23 06:32] LABS: ALBUMIN 2.6 g/dL (3.4-5.0); BILIRUBIN - TOTAL 0.2 mg/dL (0.2-1.3); CARBON DIOXIDE 39.2 mmol/L (21.0-32.0); CREATININE - SERUM 1.1 mg/dL (0.6-1.3); PROTEIN - SERUM 6.3 g/dL (6.4-8.2)
[2017-09-23 06:35] LABS: ANION GAP 8.4 mmol/L (8-16); POTASSIUM - SERUM 5.6 mmol/L (3.5-5.1)
[2017-09-23 06:46] VITALS: BP 117/81
[2017-09-23 08:51] VITALS: BP 111/79
[2017-09-23 12:29] VITALS: BP 106/57
[2017-09-23 17:28] VITALS: BP 123/78
[2017-09-23 20:00] VITALS: BP 123/69
[2017-09-24] VITALS: BP 125/80
[2017-09-24 04:00] VITALS: BP 128/77
[2017-09-24 06:04] LABS: BASOPHILS 0.7 % (0-2); EOSINOPHILS 0 % (0-7); HEMATOCRIT 39.9 % (42.0-54.0); HEMOGLOBIN 12.9 g/dL (13.5-17.5); IMMATURE GRANULOCYTES 9.4 % (0-5); LYMPHOCYTES 10.5 % (15-50); MCH 32.2 pg (26.0-34.0); MCHC 32.3 g/dL (31.0-37.0); MCV 99.5 fL (80.0-100.0); MONOCYTES 6.4 % (2-11); PLATELET COUNT 181 10x3/uL (130-400); RBC 4.01 10x6/uL (4.20-6.10); RDW 12.1 % (11.5-14.5); WBC 15.4 10x3/uL (4.8-10.8)
[2017-09-24 06:20] LABS: ALBUMIN 2.7 g/dL (3.4-5.0); ALKALINE PHOSPHATASE 73 U/L (46-116); ALT (SGPT) 34 U/L (10-68); BILIRUBIN - TOTAL 0.29 mg/dL (0.2-1.3); CALC OSMOLALITY 287 mosm/kg (275-300); CALCIUM 8.8 mg/dL (8.5-10.1); CARBON DIOXIDE 39.7 mmol/L (21.0-32.0); CHLORIDE - SERUM 93 mmol/L (98-107); GLUCOSE 288 mg/dL (74-106); POTASSIUM - SERUM 4.5 mmol/L (3.5-5.1); PROTEIN - SERUM 6.3 g/dL (6.4-8.2); SODIUM 137 mmol/L (136-145); UREA NITROGEN 22 mg/dL (7-18); eGFR NON AFRICAN AMERICAN 78 mL/min (90-120)
[2017-09-24 08:00] VITALS: BP 111/64
[2017-09-24 12:00] VITALS: BP 127/73
[2017-09-24 17:09] VITALS: BP 127/68
[2017-09-24 21:01] VITALS: BP 138/76
[2017-09-25 06:08] LABS: BASOPHILS 0.5 % (0-2); EOSINOPHILS 0 % (0-7); HEMOGLOBIN 12.4 g/dL (13.5-17.5); IMMATURE GRANULOCYTES 9.4 % (0-5); LYMPHOCYTES 10.3 % (15-50); MCHC 32.6 g/dL (31.0-37.0); MCV 97.9 fL (80.0-100.0); MEAN PLATELET VOLUME 10.9 fL (7.4-10.4); MONOCYTES 6.2 % (2-11); NEUTROPHILS 73.6 % (40-80); PLATELET COUNT 171 10x3/uL (130-400); RBC 3.88 10x6/uL (4.20-6.10); RDW 12.3 % (11.5-14.5); WBC 15.4 10x3/uL (4.8-10.8)
[2017-09-25 06:22] VITALS: BP 111/75
[2017-09-25 06:40] LABS: ALBUMIN 2.6 g/dL (3.4-5.0); ALKALINE PHOSPHATASE 72 U/L (46-116); ALT (SGPT) 33 U/L (10-68); CALC OSMOLALITY 287 mosm/kg (275-300); CALCIUM 8.9 mg/dL (8.5-10.1); CARBON DIOXIDE 38.7 mmol/L (21.0-32.0); CHLORIDE - SERUM 96 mmol/L (98-107); GLUCOSE 279 mg/dL (74-106); POTASSIUM - SERUM 4.5 mmol/L (3.5-5.1); PROTEIN - SERUM 5.9 g/dL (6.4-8.2); SODIUM 137 mmol/L (136-145); UREA NITROGEN 24 mg/dL (7-18); eGFR NON AFRICAN AMERICAN 78 mL/min (90-120)
[2017-09-25 08:51] VITALS: BP 133/74
[2017-09-25] MEDS ORDERED: PROTONIX40 MG PO (11:30)
[2017-09-25] MEDS ORDERED: LEVAQUIN500 MG PO (11:31)
[2017-09-25] MEDS ORDERED: STERAPRED DS 1010 MG PO (11:32)
[2017-09-25 11:40] VITALS: BP 132/70
== END 2017-09-25 17:14 | disposition home or self-care (01) | DRG 177 ==
LOC: D.ER 03:16 → D.EDHOLD 07:21 → D.M2 07:21
PROVIDERS: Family Medicine
PROC: 5A09357 Assistance with Respiratory Ventilation, Less than 24 Consecutive Hours, Continuous Positive Airway Pressure (ICD-10-PCS; principal; 2017-09-18)
DX: J15.6 Pneumonia due to other Gram-negative bacteria (principal); J96.22 Acute and chronic respiratory failure with hypercapnia; I50.33 Acute on chronic diastolic (congestive) heart failure; J96.21 Acute and chronic respiratory failure with hypoxia; J44.0 Chronic obstructive pulmonary disease with (acute) lower respiratory infection; J44.1 Chronic obstructive pulmonary disease with (acute) exacerbation; E87.2 Acidosis; F17.203 Nicotine dependence unspecified, with withdrawal; G47.33 Obstructive sleep apnea (adult) (pediatric); Z99.81 Dependence on supplemental oxygen; E11.9 Type 2 diabetes mellitus without complications; K64.9 Unspecified hemorrhoids; J30.9 Allergic rhinitis, unspecified

== ENCOUNTER 2018-01-15 13:14 | Inpatient (IN) | payer MEDICARE ==
[2018-01-15] VITALS (16 sets, daily range): BP systolic 88–152; BP diastolic 47–74; BMI 33.0
[~2018-01-15] VITALS: Ht 177.8 cm; Wt 94.5 kg
--- NOTE | ~2018-01-15 | PN ---
PATIENT:KAREN VALLE SR MEDICAL RECORD: [id number] LOCATION:D. D.212 ADMISSION DATE: 01/15/18 PROGRESS NOTE DATE OF SERVICE: 01/25/2018 SUBJECTIVE: This is a 72-year-old man who has had a history of chronic obstructive pulmonary disease. The patient was admitted with acute respiratory failure with hypercapnia and hypoxia, was noted to have bilateral infiltrates with right pleural effusion. The patient had thoracentesis and cultures have been negative. The patient was treated with antibiotics and also Solu-Medrol. The patient was intubated and improved gradually. He had volume overload secondary to resuscitation, diuresis was started. The patient was eventually extubated and still in the medical floor. The patient denies any shortness of breath or asthma. Coughing with scant sputum. There is no fever or chills. There is no chest pain. PHYSICAL EXAMINATION: GENERAL: Physical exam reveals an elderly man who is in no acute distress, lying supine in bed. VITAL SIGNS: Temperature 98.4, heart rate 93, respiratory rate of 20, blood pressure 123/68, and saturation 92%. SHEENT: Unremarkable. Pupils are equal and reactive. NECK: Supple. There is no adenopathy. Trachea is midline. LUNGS: Exam shows mild crackles and some coughing. No wheezes. There is no chest wall tenderness. HEART: Exam shows no jugular venous distention, no murmur or gallops. ABDOMEN: Benign, without any tenderness, masses or distention. EXTREMITIES: No clubbing, cyanosis or edema. LABORATORY DATA: White count 15.7, hemoglobin 11.8, and platelet count is 147,000. Chemistry is remarkable for potassium 3.3, sodium 140. Chest x-ray showed bibasilar airspace opacities with prominent interstitial lung markings. ASSESSMENT: 1. Acute respiratory failure with hypercapnia and hypoxia. 2. Pneumonia with parapneumonic effusion on the right, status post thoracentesis. 3. Chronic obstructive pulmonary disease. 4. Hypervolemia secondary to resuscitation. 5. Deconditioning. PLAN: 1. Continue bronchodilators, decrease this to once a day. 2. Stop Solu-Medrol. 3. Switch to prednisone. 4. Physical therapy. TRANSINT:[id number] Voice Confirmation ID: [id number] DOCUMENT ID: [id number] PROGRESS NOTE [id number] KAREN VALLE SR ZAK DELUCA at 1612 CC: [id number] DICTATION DATE: 01/25/181827 ENERGY AUDIT ADVISOR: 01/26/18 0446 DIS IN 01/28/18 [id number] [place] [address]
--- NOTE | ~2018-01-15 | PN ---
PATIENT:KAREN VALLE MEDICAL RECORD: [id number] LOCATION:D.[facility] D.231 ADMISSION DATE: 01/15/18 PROGRESS NOTE DATE OF SERVICE: 01/19/2018 HISTORY OF PRESENT ILLNESS: This is a 72-year-old male with a history of chronic obstructive pulmonary disease, chronic respiratory failure with hypoxia requiring supplemental oxygen at home. The patient was found at home with altered mental status and was intubated en route. He was noted to have acute respiratory failure, hypercapnia, and hypoxia. The patient had blood cultures that showed E. coli. He had a thoracentesis, which did not show any bacteria. The patient has been doing well with the ventilator. He is sedated. He has had normal echocardiogram with no systolic or diastolic dysfunction. No pulmonary hypertension. The patient had uneventful night. There is no fever or chills. He has been on Rocephin since yesterday for E. coli. PHYSICAL EXAMINATION: GENERAL: Reveals an elderly man, obese, in no acute distress, sedated on a ventilator. VITAL SIGNS: Temperature 98.1, heart rate of 57, respiratory rate of 19, blood pressure 126/61, saturation 94%. SHEENT: Unremarkable. The patient is normocephalic. Pupils are equal and reactive. NECK: Supple. There is no adenopathy. Trachea is midline. There is no thyromegaly. CHEST: Shows some mild crackles on the right. There is no accessory muscle use. HEART: Shows no jugular venous distention. No murmur or gallop. ABDOMEN: Benign, without any tenderness. EXTREMITIES: No clubbing, cyanosis or edema. NEUROLOGIC: Shows no focal deficits. LABORATORY DATA: CBC: White count of 9.9, hemoglobin of 9.9, platelet count is 149,000. Arterial blood gas, pH 7.38, pCO2 of 62, pO2 is 93 on 50% FiO2. Chemistry is remarkable for carbon dioxide 37.1, potassium 5.1. Magnesium is normal. Chest x-ray showed decreased right pleural effusion, perihilar vascular congestion. There is bibasilar airspace disease, small left pleural effusion. ASSESSMENT: 1. Debtg-js-iugysfv respiratory failure with hypercapnia and hypoxia. The patient is currently on antibiotics for pneumonia and bacteremia. 2. Escherichia coli bacteremia. The patient is on Rocephin that has improved leukocytosis. 3. Keep parapneumonic effusion on the right. No bacteria and therefore no evidence of empyema. 4. Chronic obstructive pulmonary disease, severe, with severe obstructive spirometry. 5. Pneumonia. DISCUSSION: NEUROPSYCHIATRY: The patient is sedated and underlying mental status is unknown. There are no focal signs suggestive of cerebrovascular accident. CARDIOVASCULAR: No issues at this time. PULMONARY/RESPIRATORY: The patient has pneumonia, parapneumonic effusion. His PROGRESS NOTE [id number] KAREN VALLE SR COPD being treated now with antibiotics and ventilator. He is also on bronchodilators. PLAN: 1. Continue ventilator. 2. Weaning protocol in the morning. 3. Continue antibiotics. TRANSINT:[id number] Voice Confirmation ID: [id number] DOCUMENT ID: [id number] ZAK DELUCA at 0811 CC: [id number] DICTATION DATE: 01/19/18 181 ENTRY LEVEL TRUCK DRIVER: 01/20/[address] [facility] [address] [place] [address]
--- NOTE | ~2018-01-15 | PN ---
PATIENT:KAREN VALLE SR MEDICAL RECORD: [id number] LOCATION:[facility] D212 ADMISSION DATE: 01/15/18 PROGRESS NOTE DATE OF SERVICE: 01/24/2018 SUBJECTIVE: This is a 72-year-old male who has had a history of chronic obstructive pulmonary disease. The patient presents to the Emergency Room with acute respiratory failure with hypercapnia and hypoxia. The patient was intubated, was noted to have right pleural effusion and the patient had CT-guided thoracentesis. He was noted to have basilar pneumonia. The patient was started on Solu-Medrol, also had hypervolemia and Lasix was started. The patient was weaned off the ventilator and was extubated. He required nasal cannula post-extubation and has been doing well, has been coughing up some slightly whitish phlegm. There is no fever or chills. There is no chest pain. PHYSICAL EXAMINATION: GENERAL: Reveals elderly man who is in no acute distress. VITAL SIGNS: Temperature 98.2, heart rate is 58, respiratory rate 20, blood pressure 118/68, saturation is 96% on room air. SHEENT: Unremarkable. NECK: Supple. CHEST: Shows some mild rales. There is no accessory muscle use. NECK: Shows no jugular venous distention, murmur or gallops. ABDOMEN: Benign. There is no tenderness. There is no distention. EXTREMITIES: There is no clubbing, cyanosis or edema. LABORATORY DATA: Show white count of 14.9, hemoglobin 11.8, platelet count is 158,000. Chemistry is remarkable for creatinine of 0.7, BUN of 24, potassium is 3.5. ASSESSMENT: 1. Acute exacerbation of chronic obstructive pulmonary disease. 2. Pneumonia with parapneumonic effusion, status post thoracentesis. 3. Hypervolemia. PLAN: 1. Continue diuresis. 2. Taper steroids. 3. Physical therapy. 4. DVT prophylaxis. TRANSINT:[id number] Voice Confirmation ID: [id number] DOCUMENT ID: [id number] PROGRESS NOTE [id number] KAREN VALLE ZAK POMPA at 1606 CC: [id number] DICTATION DATE: 01/24/18 1726 JEWELRY SALESPERSON: 01/25/18 0319 [place] [address]
--- NOTE | ~2018-01-15 | PN ---
PATIENT:KAREN VALLE SR MEDICAL RECORD: [id number] LOCATION:D.[facility] D.231 ADMISSION DATE: 01/15/18 PROGRESS NOTE DATE OF SERVICE: 01/21/2018 SUBJECTIVE: This is a 72-year-old man, who was admitted through the Emergency Room with acute respiratory failure, hypoxia, and hypercapnia. The patient also was noted to have bilateral pneumonia and pleural effusion. The patient was intubated, thoracentesis was done. The patient appears to be awake and alert, on Precedex. He has been noted to have bradycardia, sometimes going to the 50s, but maintaining blood pressure. He has had bradycardia in the past on propofol. Precedex was decreased, but still had bradycardia. There is no sputum production. Probably start preparing for weaning procedure. PHYSICAL EXAMINATION: GENERAL: Reveals an elderly male who is in no acute distress, sedated, but occasionally opens eyes. VITAL SIGNS: Temperature 99.3, heart rate of 75, respiratory rate of 15, blood pressure 137/65, saturation is 96%. SHEENT: Unremarkable. HEENT: Pupils are equal and reactive. NECK: Supple. There is no adenopathy. Trachea is midline. CHEST: Shows some mild bilateral crackles. CARDIAC: Shows no jugular venous distention, murmur, or gallop. ABDOMEN: Benign. EXTREMITIES: Shows no clubbing, cyanosis, or edema. LABORATORY DATA: Lab exam showed white count of 10.4, hemoglobin 11.1, and platelet count is 145,000. Arterial blood gas: PH 7.42, pCO2 of 55, pO2 of 85. Chemistry is remarkable for sodium of 137, BUN of 24, creatinine is 0.7. Chest x-ray shows bilateral lower lobe airspace disease and there is small right pleural effusion. ASSESSMENT: 1. Pneumonia. 2. Parapneumonic effusion, status post thoracentesis. 3. Volume overload, hypervolemia. The patient will need diuresis. 4. Acute respiratory failure with hypoxia and hypercapnia. We will diurese tonight and possibly we will try to start weaning in the morning. TRANSINT:[id number] Voice Confirmation ID: [id number] DOCUMENT ID: [id number] ZAK DELUCA at 0811 CC: [id number] DICTATION DATE: 01/21/182209 SEALER SANDER: 01/22/18 0915 ADM IN [facility] [address] [facility] [place] [address]
--- NOTE | ~2018-01-15 | PN ---
PATIENT:KAREN VALLE SR MEDICAL RECORD: [id number] [facility]: 01/15/18 PROGRESS NOTE DATE OF SERVICE: 01/23/2018 SUBJECTIVE: This is a 72-year-old man who was admitted for effusion and bibasilar infiltrates. The patient was treated with antibiotics. Also had acute respiratory failure with hypercapnia and hypoxia. The patient had thoracentesis, antibiotics, and there was volume overload and Lasix was started. The patient did well and was extubated yesterday. He has been awake and alert, eating. He has no fever or chills. PHYSICAL EXAMINATION: GENERAL: Reveals a well-developed, well-nourished man who is in no acute distress. VITAL SIGNS: Temperature 98.2, heart rate of 97, respiratory rate of 20, blood pressure 120/70, saturations 99%. SHEENT: Unremarkable. NECK: Supple. There is no adenopathy. There is no stridor. CHEST: Shows some mild crackles at the bases. No accessory muscle use. HEART: Shows no jugular venous distention, murmur or gallops. ABDOMEN: Benign Without any tenderness. EXTREMITIES: Shows no clubbing, cyanosis or edema. NEUROLOGIC: The patient has no focal deficits. The patient is awake and alert and oriented. LABORATORY DATA: Showed white count 15.3, hemoglobin 12.2. Chemistry is remarkable for carbon dioxide of 37.4, creatinine is 0.7. ASSESSMENT: 1. Acute respiratory failure with hypercapnia and hypoxia. 2. Pneumonia. 3. Acute exacerbation of chronic obstructive pulmonary disease. 4. Leukocytosis secondary to steroids. PLAN: 1. Continue DVT prophylaxis. 2. Reduce Solu-Medrol to 40 q.8 hours and taper. 3. The patient may be transferred to the medical floor. I will follow. TRANSINT:[id number] Voice Confirmation ID: [id number] DOCUMENT ID: [id number] ZAK DELUCA at 1720 CC: [id number] DICTATION DATE: 01/23/18 1242 GOLD NIB GRINDER: 01/23/18 1258 [place] [address]
--- NOTE | ~2018-01-15 | PN ---
PATIENT:KAREN VALLE SR MEDICAL RECORD: [id number] LOCATION:D.ICU D.231 ADMISSION DATE: 01/15/18 PROGRESS NOTE DATE OF SERVICE: 01/20/2018 SUBJECTIVE: This is [id number] male with a history of congestive heart failure, obstructive sleep apnea, and COPD. The patient was admitted with shortness of breath, was noted to have pneumonia and right pleural effusions. The patient had thoracentesis, was put on antibiotics as well as mechanical ventilator. There is no fever. There are no chills. PHYSICAL EXAMINATION: GENERAL: Reveals a well-developed, well-nourished man who is in no acute distress, sedated. VITAL SIGNS: Temperature 98.8, heart rate of 59, respiratory rate of 17, blood pressure 127/68. SHEENT: Unremarkable. NECK: Supple. CHEST: There are some mild crackles in the dependent area. No accessory muscle use. CARDIAC: Shows no jugular venous distention. No murmur or gallops. ABDOMEN: Benign without any tenderness. EXTREMITIES: There is no clubbing, cyanosis or edema. LABORATORY DATA: White count 7.9, improved, hemoglobin 9.8 and platelet count is 155,000. Chemistry is unremarkable. BUN 29, creatinine is 0.7. CO2 is 37.6. Arterial blood gases pH 7.37, pCO2 of 64, pO2 of 82 on 40%. Chest x-ray showed slight to mild increase in right pleural effusion status post thoracentesis. No pneumo. ASSESSMENT AND PLAN: 1. Acute respiratory failure with hypoxia and hypercapnia. The patient is on mechanical ventilator. She has had pneumonia as well prior effusion, possibly parapneumonic. 2. Chronic obstructive pulmonary disease with ongoing smoking. 3. Nicotine abuse. 4. Obstructive sleep apnea. 5. History of congestive heart failure pending current echocardiogram. 6. Anemia. 7. Community-acquired pneumonia. DISCUSSION: NEUROPSYCHIATRIC: The patient has no focal signs. CARDIOVASCULAR: There is no evidence of cardiac disease. PULMONARY/RESPIRATORY: 1. The patient has COPD with ongoing smoking, also has pneumonia, parapneumonic effusion, on antibiotics. We will continue bronchodilators. 2. The patient will be monitored for recurrent pleural effusions. Cultures have been sent. PLAN: 1. Ventilator support. 2. Increase rate to lower pCO2. 3. Pharmacologic DVT prophylaxis. PROGRESS NOTE [id number] KAREN VALLE TRANSINT:[id number] Voice Confirmation ID: [id number] DOCUMENT ID: [id number] ZAK DELUCA at 0811 CC: [id number] DICTATION DATE: 01/20/18 1611 POLICE RADIO DISPATCHER: 01/20/189 ADM IN [facility] [address] [place] [address]
--- NOTE | ~2018-01-15 | PN ---
PATIENT:KAREN VALLE SR MEDICAL RECORD: [id number] LOCATION:D.[facility] D.231 ADMISSION DATE: 01/15/18 PROGRESS NOTE DATE OF SERVICE: 01/22/2018 SUBJECTIVE: This is a 72-year-old man who was admitted through the Emergency Room with acute respiratory failure, possible COPD exacerbation. The patient was known to have pleural effusions as well as bilateral infiltrates. [place] to have pneumonia. The patient was intubated and had thoracentesis and has been on antibiotics. Has had poor resuscitation and hypervolemia. The patient was started on Lasix yesterday and was seen again this morning with improvement. The patient was successfully extubated and is doing well. PHYSICAL EXAMINATION: GENERAL: The patient is awake and alert. He is a well-developed, well-nourished man who is in no acute distress. VITAL SIGNS: Temperature 98.1, heart rate of 101, respiratory rate of 16, blood pressure 160/99, saturation is 99%. SHEENT: Remarkable. NECK: Supple. Trachea is midline. CHEST: Some mild crackles, bilateral. No accessory muscle use. HEART: Exam shows no jugular venous distention, no murmur or gallops. ABDOMEN: Benign, without any tenderness. EXTREMITIES: No clubbing, cyanosis or edema. LABORATORY DATA: White count of 12.4, hemoglobin 12.3, platelet count is 142,000. Chemistry is remarkable for bicarbonate of 27.4, creatinine is 0.7. Arterial blood gases pH 7.45, pCO2 of 48, pO2 of 84, percent sat 40. ASSESSMENT: 1. Acute respiratory failure with hypoxia and hypercapnia. The patient has also been ventilated, weaning well today. 2. Pneumonia, probably aspiration pneumonia. 3. Pleural effusion, probably parapneumonic. 4. Chronic obstructive pulmonary disease. DISCUSSION: NEUROPSYCHIATRY: The patient has no focal signs. Mental status is improved. CARDIOVASCULAR: He had no issues in this patient. PULMONARY/RESPIRATORY: The patient has COPD, sepsis, pneumonia with parapneumonic effusion. The patient has antibiotics, bronchodilators, and systemic steroid therapy. PLAN: 1. Wean and if possible, extubate today. 2. Continue bronchodilators. 3. Continue Lasix for volume overload. 4. Continue deep venous thrombosis prophylaxis, Lovenox. PROGRESS NOTE [id number] KAREN VALLE TRANSINT:[id number] Voice Confirmation ID: [id number] DOCUMENT ID: [id number] ZAK DELUCA at 0811 CC: [id number] DICTATION DATE: 01/22/18 1616 CORRECTIONS IDENTIFICATION TECHNICIAN: 01/22/18 [address] [facility] [address] [place] [id number]
[~2018-01-15 13:14] MED LIST changes: +LEVAQUIN500 MG PO; +PROTONIX40 MG PO; +STERAPRED DS 1010 MG PO
[2018-01-15 13:59] LABS: BASOPHILS 0.1 % (0-2); EOSINOPHILS 0.1 % (0-7); IMMATURE GRANULOCYTES 0.4 % (0-5); LYMPHOCYTES 6.8 % (15-50); MCH 32.3 pg (26.0-34.0); MCHC 33.3 g/dL (31.0-37.0); MEAN PLATELET VOLUME 11.1 fL (7.4-10.4); MONOCYTES 11.5 % (2-11); NEUTROPHILS 81.1 % (40-80); PLATELET COUNT 180 10x3/uL (130-400); RBC 3.71 10x6/uL (4.20-6.10); RDW 12.4 % (11.5-14.5); WBC 13.8 10x3/uL (4.8-10.8)
[2018-01-15 14:11] LABS: ALBUMIN 2.8 g/dL (3.4-5.0); ALKALINE PHOSPHATASE 62 U/L (46-116); ALT (SGPT) 23 U/L (10-68); BILIRUBIN - TOTAL 0.64 mg/dL (0.2-1.3); CALC OSMOLALITY 272 mosm/kg (275-300); CALCIUM 8.5 mg/dL (8.5-10.1); CHLORIDE - SERUM 99 mmol/L (98-107); CREATININE - SERUM 0.9 mg/dL (0.6-1.3); POTASSIUM - SERUM 4.5 mmol/L (3.5-5.1); PROTEIN - SERUM 7.3 g/dL (6.4-8.2); SODIUM 135 mmol/L (136-145); UREA NITROGEN 11 mg/dL (7-18); eGFR NON AFRICAN AMERICAN 88 mL/min (90-120)
[2018-01-15 14:14] LABS: GLUCOSE 169 mg/dL (74-106)
[2018-01-15 14:16] LABS: MAGNESIUM - SERUM 1.5 mg/dL (1.8-2.4); TROPONIN-I < 0.017 ng/mL (0.000-0.060)
[2018-01-15 14:39] LABS: APPEARANCE CLEAR (CLEAR); BILIRUBIN NEGATIVE (NEGATIVE); COLOR YELLOW (YELLOW); GLUCOSE NEGATIVE (NEGATIVE); KETONE NEGATIVE (NEGATIVE); NITRITE NEGATIVE (NEGATIVE); PROTEIN NEGATIVE (NEGATIVE); UROBILINOGEN NORMAL (NORMAL)
[2018-01-15 14:41] LABS: WHITE CELLS - URINE 0-5 /hpf (0-5)
[2018-01-15 14:42] LABS: BACTERIA FEW /hpf (NONE SEEN)
[2018-01-16] VITALS (25 sets, daily range): BP systolic 85–117; BP diastolic 53–69; Ht 177.8 cm; Wt 94.5 kg
[2018-01-16 03:48] LABS: BASOPHILS 0 % (0-2); EOSINOPHILS 0 % (0-7); HEMATOCRIT 34.5 % (42.0-54.0); HEMOGLOBIN 11.4 g/dL (13.5-17.5); IMMATURE GRANULOCYTES 0.3 % (0-5); LYMPHOCYTES 5.5 % (15-50); MCH 32.1 pg (26.0-34.0); MCV 97.2 fL (80.0-100.0); MEAN PLATELET VOLUME 11.1 fL (7.4-10.4); MONOCYTES 4.5 % (2-11); NEUTROPHILS 89.7 % (40-80); PLATELET COUNT 162 10x3/uL (130-400); RBC 3.55 10x6/uL (4.20-6.10); RDW 12.3 % (11.5-14.5); WBC 17.7 10x3/uL (4.8-10.8)
[2018-01-16 03:58] LABS: INR 1.38 (0.85-1.17); PROTIME 16.5 SECONDS (11.6-15.0)
[2018-01-16 04:05] LABS: CALCIUM 8.8 mg/dL (8.5-10.1); CARBON DIOXIDE 32.2 mmol/L (21.0-32.0); CHLORIDE - SERUM 100 mmol/L (98-107); GLUCOSE 209 mg/dL (74-106); LDH 141 U/L (85-227); PHOSPHOROUS 2.8 mg/dL (2.5-4.9); PROTEIN - SERUM 6.9 g/dL (6.4-8.2); SODIUM 137 mmol/L (136-145); eGFR NON AFRICAN AMERICAN 78 mL/min (90-120)
[2018-01-16 04:17] LABS: CALC OSMOLALITY 280 mosm/kg (275-300); MAGNESIUM - SERUM 1.9 mg/dL (1.8-2.4); POTASSIUM - SERUM 3.7 mmol/L (3.5-5.1); UREA NITROGEN 16 mg/dL (7-18)
[2018-01-17] VITALS (20 sets, daily range): BP systolic 103–129; BP diastolic 58–79
[2018-01-17 04:18] LABS: HEMATOCRIT 35.3 % (42.0-54.0); HEMOGLOBIN 11.6 g/dL (13.5-17.5); MCH 32.6 pg (26.0-34.0); MCHC 32.9 g/dL (31.0-37.0); MCV 99.2 fL (80.0-100.0); MEAN PLATELET VOLUME 11.2 fL (7.4-10.4); PLATELET COUNT 168 10x3/uL (130-400); RBC 3.56 10x6/uL (4.20-6.10); RDW 12.6 % (11.5-14.5); WBC 20.7 10x3/uL (4.8-10.8)
[2018-01-17 04:22] LABS: EOSINOPHILS 1 % (0-7); LYMPHOCYTES 7 % (15-50); MONOCYTES 9 % (2-11); NEUTROPHILS 79 % (40-80); PLATELET ESTIMATE NORMAL
[2018-01-17 04:37] LABS: ALBUMIN 2.3 g/dL (3.4-5.0); ALKALINE PHOSPHATASE 50 U/L (46-116); ALT (SGPT) 18 U/L (10-68); BILIRUBIN - TOTAL 0.26 mg/dL (0.2-1.3); CALCIUM 8.5 mg/dL (8.5-10.1); CARBON DIOXIDE 33.7 mmol/L (21.0-32.0); CHLORIDE - SERUM 102 mmol/L (98-107); MAGNESIUM - SERUM 2.1 mg/dL (1.8-2.4); SODIUM 139 mmol/L (136-145); eGFR NON AFRICAN AMERICAN 78 mL/min (90-120)
[2018-01-17 04:49] LABS: CALC OSMOLALITY 283 mosm/kg (275-300); GLUCOSE 134 mg/dL (74-106); PHOSPHOROUS 3.8 mg/dL (2.5-4.9); POTASSIUM - SERUM 4.6 mmol/L (3.5-5.1); TROPONIN-I < 0.017 ng/mL (0.000-0.060); UREA NITROGEN 24 mg/dL (7-18)
[2018-01-18] VITALS (23 sets, daily range): BP systolic 104–140; BP diastolic 55–80
[2018-01-18 04:20] LABS: BASOPHILS 0 % (0-2); EOSINOPHILS 0 % (0-7); HEMATOCRIT 31.3 % (42.0-54.0); HEMOGLOBIN 9.9 g/dL (13.5-17.5); LYMPHOCYTES 4.9 % (15-50); MCH 31.6 pg (26.0-34.0); MCHC 31.6 g/dL (31.0-37.0); MEAN PLATELET VOLUME 11.2 fL (7.4-10.4); MONOCYTES 5.5 % (2-11); NEUTROPHILS 88.6 % (40-80); PLATELET COUNT 152 10x3/uL (130-400); RBC 3.13 10x6/uL (4.20-6.10); RDW 12.7 % (11.5-14.5)
[2018-01-18 04:21] LABS: WBC 13.2 10x3/uL (4.8-10.8)
[2018-01-18 04:34] LABS: ALBUMIN 2.1 g/dL (3.4-5.0); ALKALINE PHOSPHATASE 48 U/L (46-116); BILIRUBIN - TOTAL 0.24 mg/dL (0.2-1.3); CARBON DIOXIDE 35.1 mmol/L (21.0-32.0); CHLORIDE - SERUM 104 mmol/L (98-107); CREATININE - SERUM 0.8 mg/dL (0.6-1.3); MAGNESIUM - SERUM 2.2 mg/dL (1.8-2.4); POTASSIUM - SERUM 4.7 mmol/L (3.5-5.1); PROTEIN - SERUM 6.3 g/dL (6.4-8.2); SODIUM 139 mmol/L (136-145); UREA NITROGEN 25 mg/dL (7-18); eGFR NON AFRICAN AMERICAN > 90 mL/min (90-120)
[2018-01-18 04:35] LABS: ALT (SGPT) 13 U/L (10-68); CALC OSMOLALITY 287 mosm/kg (275-300); GLUCOSE 205 mg/dL (74-106); PHOSPHOROUS 2.4 mg/dL (2.5-4.9)
[2018-01-19] VITALS (24 sets, daily range): BP systolic 116–136; BP diastolic 55–69
[2018-01-19 05:32] LABS: BASOPHILS 0.2 % (0-2); EOSINOPHILS 0 % (0-7); HEMATOCRIT 31.7 % (42.0-54.0); HEMOGLOBIN 9.9 g/dL (13.5-17.5); IMMATURE GRANULOCYTES 1.9 % (0-5); LYMPHOCYTES 7.5 % (15-50); MCH 31.6 pg (26.0-34.0); MCHC 31.2 g/dL (31.0-37.0); MCV 101.3 fL (80.0-100.0); MEAN PLATELET VOLUME 11.2 fL (7.4-10.4); MONOCYTES 7.4 % (2-11); PLATELET COUNT 149 10x3/uL (130-400); RBC 3.13 10x6/uL (4.20-6.10); RDW 12.8 % (11.5-14.5); WBC 9.9 10x3/uL (4.8-10.8)
[2018-01-19 06:07] LABS: CALC OSMOLALITY 292 mosm/kg (275-300); CALCIUM 8.3 mg/dL (8.5-10.1); CARBON DIOXIDE 37.1 mmol/L (21.0-32.0); CHLORIDE - SERUM 105 mmol/L (98-107); CREATININE - SERUM 0.8 mg/dL (0.6-1.3); GLUCOSE 225 mg/dL (74-106); MAGNESIUM - SERUM 2.4 mg/dL (1.8-2.4); PHOSPHOROUS 2.6 mg/dL (2.5-4.9); POTASSIUM - SERUM 5.1 mmol/L (3.5-5.1); SODIUM 141 mmol/L (136-145); UREA NITROGEN 27 mg/dL (7-18); eGFR NON AFRICAN AMERICAN > 90 mL/min (90-120)
[2018-01-19 11:25] LABS: PROTEIN - BODY FLUID 3.6 G/DL
[2018-01-19 13:51] LABS: MACROPHAGES BF 11 %; NEUT - BF 28 %
[2018-01-20] VITALS (24 sets, daily range): BP systolic 122–138; BP diastolic 58–75
[2018-01-20 06:21] LABS: BASOPHILS 0.1 % (0-2); EOSINOPHILS 0 % (0-7); HEMATOCRIT 31.3 % (42.0-54.0); HEMOGLOBIN 9.8 g/dL (13.5-17.5); IMMATURE GRANULOCYTES 3.3 % (0-5); LYMPHOCYTES 8.6 % (15-50); MCH 31.4 pg (26.0-34.0); MCHC 31.3 g/dL (31.0-37.0); MCV 100.3 fL (80.0-100.0); MEAN PLATELET VOLUME 11.3 fL (7.4-10.4); MONOCYTES 8.2 % (2-11); NEUTROPHILS 79.8 % (40-80); PLATELET COUNT 145 10x3/uL (130-400); RBC 3.12 10x6/uL (4.20-6.10); RDW 12.6 % (11.5-14.5); WBC 7.9 10x3/uL (4.8-10.8)
[2018-01-20 06:34] LABS: CALC OSMOLALITY 292 mosm/kg (275-300); CALCIUM 8.5 mg/dL (8.5-10.1); CARBON DIOXIDE 37.6 mmol/L (21.0-32.0); CHLORIDE - SERUM 102 mmol/L (98-107); CREATININE - SERUM 0.7 mg/dL (0.6-1.3); GLUCOSE 261 mg/dL (74-106); MAGNESIUM - SERUM 2.3 mg/dL (1.8-2.4); POTASSIUM - SERUM 4.9 mmol/L (3.5-5.1); SODIUM 139 mmol/L (136-145); UREA NITROGEN 29 mg/dL (7-18); eGFR NON AFRICAN AMERICAN > 90 mL/min (90-120)
[2018-01-20 06:47] LABS: PHOSPHOROUS 2.8 mg/dL (2.5-4.9)
[2018-01-20 19:11] LABS: ACID FAST SMEAR Negative (()); AFB SPECIMEN PROCESSING Concentration (())
[2018-01-21] VITALS (19 sets, daily range): BP systolic 115–162; BP diastolic 60–84
[2018-01-21 05:19] LABS: BASOPHILS 0.2 % (0-2); EOSINOPHILS 0 % (0-7); HEMATOCRIT 34.6 % (42.0-54.0); HEMOGLOBIN 11.1 g/dL (13.5-17.5); MCH 31.5 pg (26.0-34.0); MCHC 32.1 g/dL (31.0-37.0); MEAN PLATELET VOLUME 11.4 fL (7.4-10.4); MONOCYTES 8.5 % (2-11); NEUTROPHILS 78.3 % (40-80); PLATELET COUNT 145 10x3/uL (130-400); RBC 3.52 10x6/uL (4.20-6.10); RDW 12.3 % (11.5-14.5)
[2018-01-21 05:29] LABS: ALBUMIN 2.6 g/dL (3.4-5.0); ALKALINE PHOSPHATASE 49 U/L (46-116); ALT (SGPT) 90 U/L (10-68); BILIRUBIN - TOTAL 0.25 mg/dL (0.2-1.3); CALC OSMOLALITY 286 mosm/kg (275-300); CALCIUM 8.2 mg/dL (8.5-10.1); CARBON DIOXIDE 37.4 mmol/L (21.0-32.0); CHLORIDE - SERUM 99 mmol/L (98-107); CREATININE - SERUM 0.7 mg/dL (0.6-1.3); GLUCOSE 266 mg/dL (74-106); MAGNESIUM - SERUM 2.1 mg/dL (1.8-2.4); POTASSIUM - SERUM 4.8 mmol/L (3.5-5.1); PROTEIN - SERUM 6.2 g/dL (6.4-8.2); SODIUM 137 mmol/L (136-145); UREA NITROGEN 24 mg/dL (7-18); eGFR NON AFRICAN AMERICAN > 90 mL/min (90-120)
[2018-01-21 05:45] LABS: MCV 98.3 fL (80.0-100.0); WBC 10.4 10x3/uL (4.8-10.8)
[2018-01-21 13:17] LABS: FUNGUS STAIN Final report (())
[2018-01-22] VITALS (24 sets, daily range): BP systolic 116–160; BP diastolic 54–99
[2018-01-22 04:06] LABS: MAGNESIUM - SERUM 1.8 mg/dL (1.8-2.4)
[2018-01-22 04:09] LABS: TROPONIN-I < 0.017 ng/mL (0.000-0.060)
[2018-01-22 04:10] LABS: BASOPHILS 0.2 % (0-2); EOSINOPHILS 0 % (0-7); HEMATOCRIT 37.3 % (42.0-54.0); HEMOGLOBIN 12.3 g/dL (13.5-17.5); LYMPHOCYTES 9.3 % (15-50); MCH 31.7 pg (26.0-34.0); MEAN PLATELET VOLUME 10.7 fL (7.4-10.4); MONOCYTES 9.9 % (2-11); NEUTROPHILS 76.6 % (40-80); PLATELET COUNT 142 10x3/uL (130-400); RBC 3.88 10x6/uL (4.20-6.10); RDW 12.2 % (11.5-14.5); WBC 12.4 10x3/uL (4.8-10.8)
[2018-01-22 04:11] LABS: MCV 96.1 fL (80.0-100.0)
[2018-01-22 18:50] LABS: CALCIUM 8.9 mg/dL (8.5-10.1); CARBON DIOXIDE 35.1 mmol/L (21.0-32.0); CHLORIDE - SERUM 100 mmol/L (98-107); CREATININE - SERUM 0.7 mg/dL (0.6-1.3); SODIUM 140 mmol/L (136-145); eGFR NON AFRICAN AMERICAN > 90 mL/min (90-120)
[2018-01-22 18:51] LABS: CALC OSMOLALITY 290 mosm/kg (275-300); GLUCOSE 177 mg/dL (74-106); POTASSIUM - SERUM 3.6 mmol/L (3.5-5.1); UREA NITROGEN 34 mg/dL (7-18)
[2018-01-23] VITALS (13 sets, daily range): BP systolic 94–147; BP diastolic 57–77
[2018-01-23 04:29] LABS: BASOPHILS 0.1 % (0-2); EOSINOPHILS 0 % (0-7); HEMOGLOBIN 12.2 g/dL (13.5-17.5); IMMATURE GRANULOCYTES 3.7 % (0-5); LYMPHOCYTES 9.9 % (15-50); MCH 31.7 pg (26.0-34.0); MCV 96.1 fL (80.0-100.0); MEAN PLATELET VOLUME 10.9 fL (7.4-10.4); MONOCYTES 9.5 % (2-11); NEUTROPHILS 76.8 % (40-80); PLATELET COUNT 152 10x3/uL (130-400); RBC 3.85 10x6/uL (4.20-6.10); RDW 12.5 % (11.5-14.5); WBC 15.3 10x3/uL (4.8-10.8)
[2018-01-23 04:58] LABS: ALBUMIN 2.6 g/dL (3.4-5.0); ALKALINE PHOSPHATASE 57 U/L (46-116); ALT (SGPT) 57 U/L (10-68); BILIRUBIN - TOTAL 0.29 mg/dL (0.2-1.3); CALC OSMOLALITY 291 mosm/kg (275-300); CALCIUM 8.2 mg/dL (8.5-10.1); CARBON DIOXIDE 37.4 mmol/L (21.0-32.0); CHLORIDE - SERUM 100 mmol/L (98-107); CREATININE - SERUM 0.7 mg/dL (0.6-1.3); GLUCOSE 227 mg/dL (74-106); POTASSIUM - SERUM 3.6 mmol/L (3.5-5.1); PROTEIN - SERUM 5.8 g/dL (6.4-8.2); SODIUM 140 mmol/L (136-145); UREA NITROGEN 28 mg/dL (7-18); eGFR NON AFRICAN AMERICAN > 90 mL/min (90-120)
[2018-01-24 02:35] VITALS: BP 119/59
[2018-01-24 06:37] VITALS: BP 121/68
[2018-01-24 06:44] LABS: BASOPHILS 0.1 % (0-2); EOSINOPHILS 0 % (0-7); HEMATOCRIT 35.7 % (42.0-54.0); HEMOGLOBIN 11.8 g/dL (13.5-17.5); LYMPHOCYTES 6.4 % (15-50); MCH 31.6 pg (26.0-34.0); MCHC 33.1 g/dL (31.0-37.0); MCV 95.7 fL (80.0-100.0); MEAN PLATELET VOLUME 11.7 fL (7.4-10.4); MONOCYTES 7.4 % (2-11); NEUTROPHILS 84.1 % (40-80); PLATELET COUNT 158 10x3/uL (130-400); RBC 3.73 10x6/uL (4.20-6.10); RDW 12.5 % (11.5-14.5); WBC 14.9 10x3/uL (4.8-10.8)
[2018-01-24 07:06] LABS: ALBUMIN 2.6 g/dL (3.4-5.0); ALKALINE PHOSPHATASE 56 U/L (46-116); ALT (SGPT) 45 U/L (10-68); BILIRUBIN - TOTAL 0.29 mg/dL (0.2-1.3); CALC OSMOLALITY 288 mosm/kg (275-300); CALCIUM 8.2 mg/dL (8.5-10.1); CARBON DIOXIDE 37.4 mmol/L (21.0-32.0); CHLORIDE - SERUM 100 mmol/L (98-107); CREATININE - SERUM 0.7 mg/dL (0.6-1.3); GLUCOSE 231 mg/dL (74-106); MAGNESIUM - SERUM 1.9 mg/dL (1.8-2.4); POTASSIUM - SERUM 3.5 mmol/L (3.5-5.1); PROTEIN - SERUM 5.3 g/dL (6.4-8.2); SODIUM 139 mmol/L (136-145); UREA NITROGEN 24 mg/dL (7-18); eGFR NON AFRICAN AMERICAN > 90 mL/min (90-120)
[2018-01-24 08:00] VITALS: BP 123/60
[2018-01-24 10:51] VITALS: BP 118/68
[2018-01-24 16:11] VITALS: BP 120/63
[2018-01-24 22:50] VITALS: BP 123/68
[2018-01-25 05:37] LABS: BASOPHILS 0.1 % (0-2); EOSINOPHILS 0 % (0-7); HEMATOCRIT 35.3 % (42.0-54.0); HEMOGLOBIN 11.8 g/dL (13.5-17.5); IMMATURE GRANULOCYTES 1.7 % (0-5); MCH 32.2 pg (26.0-34.0); MCHC 33.4 g/dL (31.0-37.0); MCV 96.2 fL (80.0-100.0); MEAN PLATELET VOLUME 11.2 fL (7.4-10.4); MONOCYTES 7.9 % (2-11); NEUTROPHILS 78.3 % (40-80); PLATELET COUNT 147 10x3/uL (130-400); RBC 3.67 10x6/uL (4.20-6.10); RDW 12.6 % (11.5-14.5); WBC 16.7 10x3/uL (4.8-10.8)
[2018-01-25 06:31] LABS: ALBUMIN 2.5 g/dL (3.4-5.0); ALKALINE PHOSPHATASE 57 U/L (46-116); BILIRUBIN - TOTAL 0.28 mg/dL (0.2-1.3); CALC OSMOLALITY 287 mosm/kg (275-300); CALCIUM 8.2 mg/dL (8.5-10.1); CHLORIDE - SERUM 101 mmol/L (98-107); CREATININE - SERUM 0.7 mg/dL (0.6-1.3); GLUCOSE 211 mg/dL (74-106); POTASSIUM - SERUM 3.3 mmol/L (3.5-5.1); PROTEIN - SERUM 5.6 g/dL (6.4-8.2); SODIUM 140 mmol/L (136-145); UREA NITROGEN 22 mg/dL (7-18); eGFR NON AFRICAN AMERICAN > 90 mL/min (90-120)
[2018-01-25 06:38] LABS: ALT (SGPT) 33 U/L (10-68)
[2018-01-25 08:00] VITALS: BP 131/58
[2018-01-26 00:11] VITALS: BP 126/52
[2018-01-26 04:00] VITALS: BP 133/55
[2018-01-26 05:05] LABS: BASOPHILS 0.1 % (0-2); EOSINOPHILS 0.6 % (0-7); HEMATOCRIT 35.9 % (42.0-54.0); HEMOGLOBIN 11.8 g/dL (13.5-17.5); IMMATURE GRANULOCYTES 1.3 % (0-5); LYMPHOCYTES 12.2 % (15-50); MCH 31.7 pg (26.0-34.0); MCHC 32.9 g/dL (31.0-37.0); MCV 96.5 fL (80.0-100.0); MEAN PLATELET VOLUME 11.6 fL (7.4-10.4); MONOCYTES 7.9 % (2-11); NEUTROPHILS 77.9 % (40-80); PLATELET COUNT 155 10x3/uL (130-400); RBC 3.72 10x6/uL (4.20-6.10); RDW 12.9 % (11.5-14.5)
[2018-01-26 05:52] LABS: ALBUMIN 2.6 g/dL (3.4-5.0); ALKALINE PHOSPHATASE 50 U/L (46-116); ALT (SGPT) 30 U/L (10-68); BILIRUBIN - TOTAL 0.31 mg/dL (0.2-1.3); CALC OSMOLALITY 283 mosm/kg (275-300); CALCIUM 8.4 mg/dL (8.5-10.1); CARBON DIOXIDE 35.8 mmol/L (21.0-32.0); CHLORIDE - SERUM 101 mmol/L (98-107); CREATININE - SERUM 0.7 mg/dL (0.6-1.3); POTASSIUM - SERUM 3.6 mmol/L (3.5-5.1); PROTEIN - SERUM 5.7 g/dL (6.4-8.2); SODIUM 139 mmol/L (136-145); UREA NITROGEN 22 mg/dL (7-18); eGFR NON AFRICAN AMERICAN > 90 mL/min (90-120)
[2018-01-26 05:57] LABS: GLUCOSE 146 mg/dL (74-106)
[2018-01-26 23:37] VITALS: BP 112/52
[2018-01-27 05:00] VITALS: BP 113/56
[2018-01-27 06:10] LABS: BASOPHILS 0.1 % (0-2); EOSINOPHILS 0.6 % (0-7); HEMATOCRIT 36.6 % (42.0-54.0); HEMOGLOBIN 11.9 g/dL (13.5-17.5); IMMATURE GRANULOCYTES 0.9 % (0-5); LYMPHOCYTES 11.3 % (15-50); MCH 31.3 pg (26.0-34.0); MCHC 32.5 g/dL (31.0-37.0); MCV 96.3 fL (80.0-100.0); MEAN PLATELET VOLUME 11.7 fL (7.4-10.4); MONOCYTES 6.9 % (2-11); NEUTROPHILS 80.2 % (40-80); PLATELET COUNT 159 10x3/uL (130-400); RDW 12.9 % (11.5-14.5); WBC 19.8 10x3/uL (4.8-10.8)
[2018-01-27 06:41] LABS: CALC OSMOLALITY 290 mosm/kg (275-300); CALCIUM 8.6 mg/dL (8.5-10.1); CARBON DIOXIDE 35.9 mmol/L (21.0-32.0); CHLORIDE - SERUM 102 mmol/L (98-107); CREATININE - SERUM 0.8 mg/dL (0.6-1.3); GLUCOSE 155 mg/dL (74-106); MAGNESIUM - SERUM 1.7 mg/dL (1.8-2.4); PHOSPHOROUS 3.1 mg/dL (2.5-4.9); POTASSIUM - SERUM 3.5 mmol/L (3.5-5.1); SODIUM 142 mmol/L (136-145); UREA NITROGEN 26 mg/dL (7-18); eGFR NON AFRICAN AMERICAN > 90 mL/min (90-120)
[2018-01-27 07:39] VITALS: BP 106/46
[2018-01-27 11:51] VITALS: BP 109/59
[2018-01-27 15:15] VITALS: BP 108/57
[2018-01-27 22:16] VITALS: BP 125/57
[2018-01-28 05:30] LABS: CALC OSMOLALITY 286 mosm/kg (275-300); CALCIUM 8.1 mg/dL (8.5-10.1); CARBON DIOXIDE 37.3 mmol/L (21.0-32.0); CHLORIDE - SERUM 98 mmol/L (98-107); CREATININE - SERUM 0.8 mg/dL (0.6-1.3); POTASSIUM - SERUM 3.4 mmol/L (3.5-5.1); SODIUM 138 mmol/L (136-145); UREA NITROGEN 21 mg/dL (7-18); eGFR NON AFRICAN AMERICAN > 90 mL/min (90-120)
[2018-01-28 05:31] LABS: GLUCOSE 240 mg/dL (74-106)
[2018-01-28 05:36] LABS: BASOPHILS 0.1 % (0-2); EOSINOPHILS 0.9 % (0-7); HEMATOCRIT 34.5 % (42.0-54.0); HEMOGLOBIN 11.3 g/dL (13.5-17.5); IMMATURE GRANULOCYTES 0.8 % (0-5); LYMPHOCYTES 13.2 % (15-50); MCH 31.4 pg (26.0-34.0); MCHC 32.8 g/dL (31.0-37.0); MCV 95.8 fL (80.0-100.0); MEAN PLATELET VOLUME 11.7 fL (7.4-10.4); MONOCYTES 8.2 % (2-11); NEUTROPHILS 76.8 % (40-80); PLATELET COUNT 147 10x3/uL (130-400); RDW 12.7 % (11.5-14.5); WBC 16.3 10x3/uL (4.8-10.8)
[2018-01-28 06:42] VITALS: BP 113/47
[2018-01-28] MEDS ORDERED: PREDNISONE20 MG PO (10:04)
[2018-01-28 13:57] VITALS: BP 78/58
[2018-02-16 07:09] LABS: FUNGUS MYCOLOGY CULTURE Final report (())
== END 2018-01-28 13:30 | disposition home or self-care (01) | DRG 207 ==
LOC: D.ER → EDBD 13:14 → D.EDHOLD 15:10 → D.ICU 15:10 → D.M2 15:10 → D.ICU 18:06 → D.M2 01-23 14:13 → D.SDCHOLD 01-25 14:04 → D.M2 01-25 14:10
PROVIDERS: Family Medicine; Family Medicine Adult Medicine; Internal Medicine; Internal Medicine Nephrology; Internal Medicine Pulmonary Disease
PROC: 0BH17EZ Insertion of Endotracheal Airway into Trachea, Via Natural or Artificial Opening (ICD-10-PCS; principal; 2018-01-15)
PROC: 5A1955Z Respiratory Ventilation, Greater than 96 Consecutive Hours (ICD-10-PCS; 2018-01-15)
PROC: 05HY33Z Insertion of Infusion Device into Upper Vein, Percutaneous Approach (ICD-10-PCS; 2018-01-16)
PROC: 0W993ZZ Drainage of Right Pleural Cavity, Percutaneous Approach (ICD-10-PCS; 2018-01-19)
DX: J96.21 Acute and chronic respiratory failure with hypoxia (principal); I50.33 Acute on chronic diastolic (congestive) heart failure; J15.5 Pneumonia due to Escherichia coli; J44.1 Chronic obstructive pulmonary disease with (acute) exacerbation; J90 Pleural effusion, not elsewhere classified; J95.811 Postprocedural pneumothorax; J96.22 Acute and chronic respiratory failure with hypercapnia; G47.33 Obstructive sleep apnea (adult) (pediatric); Z99.81 Dependence on supplemental oxygen; E83.42 Hypomagnesemia; R91.8 Other nonspecific abnormal finding of lung field; F17.200 Nicotine dependence, unspecified, uncomplicated; D64.9 Anemia, unspecified

== ENCOUNTER 2018-02-02 23:58 | Inpatient (IN) | payer MEDICARE ==
[~2018-02-02] VITALS: Ht 177.8 cm; Wt 99.5 kg
--- NOTE | ~2018-02-02 | CN ---
PATIENT NAME:KAREN VALLE SR MEDICAL RECORD: [id number] : 47 LOCATION:[facility] D.2129 ADMIT DATE: 02/03/18 ACCOUNT: [id number] CONSULTING PHYSICIAN: ZAK DELUCA REFERRING PHYSICIAN: VINEET JACOBSON MD DATE OF CONSULTATION: 02/03/2018 HISTORY OF PRESENT ILLNESS: This is a 72-year-old man who has had a history of chronic obstructive pulmonary disease. The patient was discharged about a week ago. Had a right lower lobe pneumonia. The patient states that he has been having increasing shortness of breath, fever. The patient was seen in the Emergency Room and was noted to have improving right lower lobe infiltrate with clearing of the left lower lobe infiltrates. The patient was noted to be in mild respiratory distress, was admitted. The patient has chronic respiratory failure, hypoxemia, uses oxygen daily at home at 2 liters per minute. He also has a nebulizer. The patient denies any orthopnea or PND. The patient has not filled up his prescriptions two days ago. The patient is admitted with COPD exacerbation and recurrent pneumonia. PAST MEDICAL HISTORY: Remarkable for hypoxic respiratory failure, chronic. Congestive heart failure and anemia. Also, has bilateral pulmonary nodules. PAST SURGICAL HISTORY: History of appendectomy and tracheostomy tube. ALLERGIES: No known allergies. CURRENT MEDICATIONS: Include roflumilast 500 mg daily, Pulmicort 0.5 mg capsules b.i.d. nebulized, [place] 10/325 q. 6 hours p.r.n. FAMILY HISTORY: Unknown. SOCIAL HISTORY: The patient smokes currently daily and does use alcohol, for the last 50 years. Does not use any recreational drugs. REVIEW OF SYSTEMS: GENERAL: The patient denies any fevers, chills, weight loss, or decreased appetite. SHEENT: There is no headache, nasal drainage or sore throat. PULMONARY: The patient denies any orthopnea or PND. CARDIOVASCULAR: There is no chest pain. GASTROINTESTINAL: There is no nausea, vomiting, or abdominal pain. GENITOURINARY: There is no frequency or dysuria. PHYSICAL EXAMINATION: GENERAL: Physical exam reveals an elderly man who is in no acute distress. VITAL SIGNS: Her temperature 101.8, heart rate of 88, respiratory rate of 28, blood pressure 131/57. SHEENT: Unremarkable. Normocephalic. Pupils are equal and reactive. Nares are clear and moist. NECK: Supple. There is no adenopathy. Trachea is midline. There is no thyromegaly. CHEST: Coarse crackles. Some coughing, there is no chest tenderness, no accessory muscle use. HEART: Exam shows no jugular venous distention and no murmur or gallop. ABDOMEN: Benign, there is no tenderness. CONSULT REPORT [id number] KAREN VALLE EXTREMITIES: No clubbing, cyanosis or edema. LABORATORY DATA: Exam showed a white count of 10.7, hemoglobin 10.6, platelet count is 142,000. Chemistry is remarkable for sodium 131, potassium 3.6, and bicarbonate is 35. Chest x-ray showed improving right lower lobe pneumonia. IMPRESSION: 1. Healthcare-associated pneumonia, it is unclear whether this was present on the previous admissions. 2. Pneumonia, appears to be improving. She has to be continuing oral medications. 3. Fever. 4. Acute exacerbation of chronic obstructive pulmonary disease. The patient has mucous plugging and retention. We will need mucolytics. 5. Pulmonary nodules, possible lung carcinoma. 6. Nicotine abuse, ongoing. PLAN: 1. Bronchodilators. 2. Continue antibiotics. 3. Systemic steroids. 4. Mucinex 600 mg b.i.d. 5. DVT prophylaxis, supplemental Lovenox. Time spent 60 minutes. TRANSINT:[id number] Voice Confirmation ID: [id number] DOCUMENT ID: [id number] ZAK DELUCA at 1737 CC: [id number] DICTATION DATE: 02/03/181838 MIXED CROP [employer] LIVESTOCK FARM WORKER: 02/04/18 0114 ADM IN [place] [id number] [place] [address]
--- NOTE | ~2018-02-02 | PN ---
PATIENT:KAREN VALLE SR MEDICAL RECORD: [id number] LOCATION:[facility] D.212 ADMISSION DATE: 02/03/18 PROGRESS NOTE DATE OF SERVICE: 02/07/2018 SUBJECTIVE: This is a 72-year-old male who was admitted for unresolved right lower lobe pneumonia. The patient was admitted and was discharged about 3 days prior to admission. He was given antibiotics to take at home, but did not feel the fluctuations. The patient presents to the Emergency Room with increased shortness of breath and coughing. He was noted to have fever of 101.8 and admission was advised. He had unresolved right lower lobe pneumonia. He has also had chronic obstructive pulmonary disease and has been coughing up some yellowish green sputum. He is doing well. There is no fever or chills. Has minimal sputum production. PHYSICAL EXAMINATION: GENERAL: Reveals a well-developed, well-nourished male who is in no acute distress. VITAL SIGNS: Temperature 98.2, heart rate of 101, respiratory rate of 20, blood pressure 113/80. SHEENT: Unremarkable. Pupils are equal and reactive. Nares normal. Oral cavity is also normal. NECK: Supple. There is no tenderness. There is no adenopathy. Trachea is midline. CHEST: Showed mild crackle on coughing, nonproductive. There are no wheezes. HEART: Shows no jugular venous distention, murmur or gallops. ABDOMEN: Benign. There is no tenderness. There is no mass or distention. EXTREMITIES: No clubbing, cyanosis or edema. LABORATORY DATA: White count 7.6, hemoglobin 10.8, platelet count is 147,000. Chemistry is essentially normal. ASSESSMENT: 1. Resolved right lower lobe pneumonia. The patient has improved, white count improving, no fever. 2. Acute exacerbation of chronic obstructive pulmonary disease. PLAN: 1. The patient can be discharged home on Levaquin for about 3-4 days. 2. For acute exacerbation of chronic obstructive pulmonary disease, the patient will use medications at home. 3. Follow up at pulmonary clinic. TRANSINT:[id number] Voice Confirmation ID: [id number] DOCUMENT ID: [id number] PROGRESS NOTE [id number] KAREN VALLE ZAK DELUCA at 9379 CC: [id number] DICTATION DATE: 02/07/18 1228 HOOP PUNCH AND COILER OPERATOR: 02/07/18 1441 DIS IN 02/07/18 [facility] [address] [place] [address]
--- NOTE | ~2018-02-02 | PN ---
PATIENT:KAREN VALLE SR MEDICAL RECORD: [id number] LOCATION:D. D.212 ADMISSION DATE: 02/03/18 PROGRESS NOTE DATE OF SERVICE: 02/06/2018 HISTORY: This 72-year-old man who was admitted for incompletely resolved right lower lobe pneumonia. The patient also has had a chronic obstructive pulmonary disease, was felt to have an exacerbation. The patient was placed on antibiotics, bronchodilators, systemic steroids. The patient has been improving. Has significant improvement in white count this morning. He is feeling better. No sputum production. He has no chest pain. He has no fever or chills. PHYSICAL EXAMINATION: GENERAL: Reveals well-developed, well-nourished elderly male who is in no acute distress. VITAL SIGNS: Temperature 97.9, heart rate of 96, respiratory rate of 16, blood pressure 89/44. SHEENT: Unremarkable. The patient is normocephalic. Pupils are equal and reactive. Nares are normal. Oral cavity is also normal. NECK: Supple. There is no tenderness or adenopathy. Trachea is midline. No thyromegaly. CHEST: Clear, symmetric with no crackles or wheezes. CARDIAC: Shows no jugular venous distention, murmur, rub or gallops. ABDOMEN: Benign, without any tenderness, masses or distention. EXTREMITIES: Shows no clubbing, cyanosis or edema. LABORATORY DATA: White count 6.9, hemoglobin 10.1, platelet count is 182,000. Chemistry is remarkable for carbon dioxide of 33, BUN is 13, creatinine is 1. ASSESSMENT: 1. Nonresolving pneumonia. This is improved on antibiotics as well as systemic steroids and bronchodilators. 2. Acute exacerbation of chronic obstructive pulmonary disease, it has also improved. 3. Hypoxemic respiratory failure, improving. PLAN: 1. Continue antibiotics for another day before discharge. 2. Oral antibiotics. Stop Solu-Medrol and start on prednisone and taper. 3. Start Levaquin and stop vancomycin and Merrem. 4. Lovenox for DVT prophylaxis. TRANSINT:[id number] Voice Confirmation ID: [id number] DOCUMENT ID: [id number] PROGRESS NOTE [id number] KAREN VALLE AZK DELUCA at 4908 CC: [id number] DICTATION DATE: 02/06/18 5178 MIXED LIVESTOCK FARM WORKER: 02/06/18 1721 ADM IN [facility] [address] [place] [id number]
--- NOTE | ~2018-02-02 | PN ---
PATIENT:KAREN VALLE SR MEDICAL RECORD: [id number] LOCATION:D. D.212 ADMISSION DATE: 02/03/18 PROGRESS NOTE DATE OF SERVICE: 02/04/2018 SUBJECTIVE: This is a 72-year-old man who was recently discharged with right lower lobe and left lower lobe pneumonia. The patient was discharged and was given oral antibiotic, but did not fill. After 2 days, the patient had severe shortness of breath as well as fever up to 101.8. He was seen in the Emergency Room and admission was advised. The patient had sputum production, yellowish-green. The patient has also had chronic obstructive pulmonary disease. He has also had diastolic dysfunction. The patient has done well. There is no fever or chills. The patient feels very weak. PHYSICAL EXAMINATION: GENERAL: Reveals elderly man, who is in no acute distress. VITAL SIGNS: Temperature 97.9, heart rate of 95, respiratory rate of 21, blood pressure 121/71, and saturation is 99%. SHEENT: Unremarkable. The patient is normocephalic. Pupils are equal and reactive. Nares are normal. Oral cavity shows no exudates. NECK: Supple. There is no adenopathy. Trachea is midline. There is no thyromegaly. CHEST: Shows coarse crackles and coughing, especially on the right. HEART: Shows no jugular venous distention, murmur, or gallops. ABDOMEN: Benign. There is no tenderness. There is no distention. There are no masses. EXTREMITIES: Show no clubbing, cyanosis, or edema. LABORATORY DATA: Lab exam shows white count is 12.8, hemoglobin 12.4, platelet count is 137,000. Chemistries remarkable for creatinine of 1.1, potassium 3.4, and glucose 247. ASSESSMENT: 1. Incompletely treated pneumonia, probably community aquired from the prior hospitalization. 2. Diastolic dysfunction. 3. Acute exacerbation of COPD. PLAN: 1. Taper Solu-Medrol. 2. Continue antibiotics. Continue mucolytics. 3. DVT prophylaxis. 4. Add BNP for labs in the morning. TRANSINT:[id number] Voice Confirmation ID: [id number] DOCUMENT ID: [id number] PROGRESS NOTE [id number] KAREN VALLE ZAK DELUCA at 2992 CC: [id number] DICTATION DATE: 02/04/181743 BLACKSMITH ASSISTANT: 02/04/181954 ADM IN [facility] [address] [place] [id number]
[2018-02-03] VITALS (8 sets, daily range): BP systolic 103–132; BP diastolic 39–69; BMI 28.7
[2018-02-03 01:05] LABS: BASOPHILS 0.2 % (0-2); EOSINOPHILS 0.7 % (0-7); HEMATOCRIT 31.9 % (42.0-54.0); HEMOGLOBIN 10.6 g/dL (13.5-17.5); IMMATURE GRANULOCYTES 0.3 % (0-5); MCH 31.5 pg (26.0-34.0); MCHC 33.2 g/dL (31.0-37.0); MCV 94.9 fL (80.0-100.0); MEAN PLATELET VOLUME 10.5 fL (7.4-10.4); NEUTROPHILS 69.8 % (40-80); PLATELET COUNT 142 10x3/uL (130-400); RBC 3.36 10x6/uL (4.20-6.10); RDW 12.6 % (11.5-14.5); WBC 10.7 10x3/uL (4.8-10.8)
[2018-02-03 01:22] LABS: ALBUMIN 2.5 g/dL (3.4-5.0); ALKALINE PHOSPHATASE 48 U/L (46-116); ALT (SGPT) 23 U/L (10-68); BILIRUBIN - TOTAL 0.42 mg/dL (0.2-1.3); CALC OSMOLALITY 264 mosm/kg (275-300); CALCIUM 8.3 mg/dL (8.5-10.1); CHLORIDE - SERUM 96 mmol/L (98-107); CREATININE - SERUM 0.9 mg/dL (0.6-1.3); POTASSIUM - SERUM 3.6 mmol/L (3.5-5.1); PRO BNP 196 pg/mL (0-125); PROTEIN - SERUM 6.6 g/dL (6.4-8.2); SODIUM 131 mmol/L (136-145); UREA NITROGEN 10 mg/dL (7-18); eGFR NON AFRICAN AMERICAN 88 mL/min (90-120)
[2018-02-03 01:23] LABS: GLUCOSE 147 mg/dL (74-106)
[2018-02-03 07:09] LABS: APPEARANCE CLEAR (CLEAR); BILIRUBIN NEGATIVE (NEGATIVE); COLOR YELLOW (YELLOW); EPITHELIAL CELLS 0-5 /hpf (0-5); GLUCOSE NEGATIVE (NEGATIVE); KETONE NEGATIVE (NEGATIVE); NITRITE NEGATIVE (NEGATIVE); PROTEIN NEGATIVE (NEGATIVE); UROBILINOGEN NORMAL (NORMAL); WHITE CELLS - URINE OCC /hpf (0-5)
[2018-02-03 07:10] LABS: BACTERIA FEW /hpf (NONE SEEN); MUCUS <1+ /lpf (NONE SEEN)
[2018-02-04] VITALS: BP 121/55
[2018-02-04 04:00] VITALS: BP 145/66
[2018-02-04 06:36] LABS: BASOPHILS 0.1 % (0-2); EOSINOPHILS 0 % (0-7); HEMOGLOBIN 12.4 g/dL (13.5-17.5); IMMATURE GRANULOCYTES 0.2 % (0-5); LYMPHOCYTES 5.1 % (15-50); MCH 31.6 pg (26.0-34.0); MCHC 32.6 g/dL (31.0-37.0); MCV 96.7 fL (80.0-100.0); MEAN PLATELET VOLUME 11.2 fL (7.4-10.4); MONOCYTES 1.5 % (2-11); NEUTROPHILS 93.1 % (40-80); PLATELET COUNT 137 10x3/uL (130-400); RBC 3.93 10x6/uL (4.20-6.10); RDW 12.5 % (11.5-14.5); WBC 12.8 10x3/uL (4.8-10.8)
[2018-02-04 06:50] LABS: ANION GAP 10.8 mmol/L (8-16); CALCIUM 8.3 mg/dL (8.5-10.1); CARBON DIOXIDE 32.6 mmol/L (21.0-32.0); CREATININE - SERUM 1.1 mg/dL (0.6-1.3); POTASSIUM - SERUM 3.4 mmol/L (3.5-5.1)
[2018-02-04 09:34] VITALS: BP 117/79
[2018-02-04 12:06] VITALS: Ht 177.8 cm; Wt 99.5 kg
[2018-02-04 12:55] VITALS: BP 121/71
[2018-02-04 17:51] VITALS: BP 106/62
[2018-02-04 20:37] VITALS: BP 105/52
[2018-02-05 00:16] VITALS: BP 92/62
[2018-02-05 05:37] VITALS: BP 97/48
[2018-02-05 06:18] LABS: BASOPHILS 0.1 % (0-2); EOSINOPHILS 0 % (0-7); HEMATOCRIT 32.4 % (42.0-54.0); HEMOGLOBIN 10.9 g/dL (13.5-17.5); IMMATURE GRANULOCYTES 0.1 % (0-5); LYMPHOCYTES 3.8 % (15-50); MCH 31.4 pg (26.0-34.0); MCHC 33.6 g/dL (31.0-37.0); MEAN PLATELET VOLUME 11.1 fL (7.4-10.4); MONOCYTES 2.7 % (2-11); NEUTROPHILS 93.3 % (40-80); PLATELET COUNT 139 10x3/uL (130-400); RBC 3.47 10x6/uL (4.20-6.10); RDW 12.4 % (11.5-14.5); WBC 13.3 10x3/uL (4.8-10.8)
[2018-02-05 06:20] LABS: MCV 93.4 fL (80.0-100.0)
[2018-02-05 06:40] LABS: ALBUMIN 2.3 g/dL (3.4-5.0); ANION GAP 9.7 mmol/L (8-16); BILIRUBIN - TOTAL 0.27 mg/dL (0.2-1.3); CALCIUM 8.3 mg/dL (8.5-10.1); CARBON DIOXIDE 30.9 mmol/L (21.0-32.0); CREATININE - SERUM 1.2 mg/dL (0.6-1.3); MAGNESIUM - SERUM 1.6 mg/dL (1.8-2.4); POTASSIUM - SERUM 3.6 mmol/L (3.5-5.1); PROTEIN - SERUM 6.5 g/dL (6.4-8.2)
[2018-02-05 16:48] VITALS: BP 105/63
[2018-02-05 20:42] VITALS: BP 112/64
[2018-02-06] VITALS (7 sets, daily range): BP systolic 89–134; BP diastolic 44–73
[2018-02-06 05:34] LABS: BASOPHILS 0 % (0-2); EOSINOPHILS 0 % (0-7); HEMATOCRIT 30.9 % (42.0-54.0); HEMOGLOBIN 10.1 g/dL (13.5-17.5); IMMATURE GRANULOCYTES 0.4 % (0-5); MCH 30.9 pg (26.0-34.0); MCHC 32.7 g/dL (31.0-37.0); MCV 94.5 fL (80.0-100.0); MEAN PLATELET VOLUME 11.3 fL (7.4-10.4); MONOCYTES 3.6 % (2-11); PLATELET COUNT 132 10x3/uL (130-400); RBC 3.27 10x6/uL (4.20-6.10); RDW 12.4 % (11.5-14.5)
[2018-02-06 05:43] LABS: WBC 6.9 10x3/uL (4.8-10.8)
[2018-02-06 06:17] LABS: ALBUMIN 2.2 g/dL (3.4-5.0); ALKALINE PHOSPHATASE 56 U/L (46-116); ALT (SGPT) 23 U/L (10-68); BILIRUBIN - TOTAL 0.25 mg/dL (0.2-1.3); CALCIUM 8.2 mg/dL (8.5-10.1); CARBON DIOXIDE 32.6 mmol/L (21.0-32.0); CHLORIDE - SERUM 102 mmol/L (98-107); MAGNESIUM - SERUM 1.7 mg/dL (1.8-2.4); POTASSIUM - SERUM 3.7 mmol/L (3.5-5.1); PROTEIN - SERUM 5.8 g/dL (6.4-8.2); SODIUM 139 mmol/L (136-145); UREA NITROGEN 13 mg/dL (7-18); eGFR NON AFRICAN AMERICAN 78 mL/min (90-120)
[2018-02-06 06:21] LABS: CALC OSMOLALITY 288 mosm/kg (275-300); GLUCOSE 290 mg/dL (74-106)
[2018-02-07 05:36] LABS: BASOPHILS 0.1 % (0-2); EOSINOPHILS 0 % (0-7); HEMATOCRIT 33.2 % (42.0-54.0); HEMOGLOBIN 10.8 g/dL (13.5-17.5); IMMATURE GRANULOCYTES 0.9 % (0-5); LYMPHOCYTES 10.5 % (15-50); MCH 31.2 pg (26.0-34.0); MCHC 32.5 g/dL (31.0-37.0); MEAN PLATELET VOLUME 10.8 fL (7.4-10.4); MONOCYTES 10.3 % (2-11); NEUTROPHILS 78.2 % (40-80); PLATELET COUNT 147 10x3/uL (130-400); RBC 3.46 10x6/uL (4.20-6.10); RDW 12.9 % (11.5-14.5); WBC 7.6 10x3/uL (4.8-10.8)
[2018-02-07 05:50] LABS: ALBUMIN 2.3 g/dL (3.4-5.0); ALKALINE PHOSPHATASE 62 U/L (46-116); ALT (SGPT) 19 U/L (10-68); CALC OSMOLALITY 284 mosm/kg (275-300); CALCIUM 8.3 mg/dL (8.5-10.1); CARBON DIOXIDE 35.9 mmol/L (21.0-32.0); CHLORIDE - SERUM 104 mmol/L (98-107); CREATININE - SERUM 0.8 mg/dL (0.6-1.3); MAGNESIUM - SERUM 1.7 mg/dL (1.8-2.4); POTASSIUM - SERUM 4.2 mmol/L (3.5-5.1); PROTEIN - SERUM 5.9 g/dL (6.4-8.2); SODIUM 141 mmol/L (136-145); UREA NITROGEN 13 mg/dL (7-18); eGFR NON AFRICAN AMERICAN > 90 mL/min (90-120)
[2018-02-07 05:54] LABS: GLUCOSE 171 mg/dL (74-106)
[2018-02-07 06:30] VITALS: BP 111/64
[2018-02-07 09:15] VITALS: BP 113/80
[2018-02-07] MEDS ORDERED: MUCINEX600 MG PO (13:19)
[2018-02-07] MEDS ORDERED: PREDNISONE10 MG PO (13:19)
[2018-02-07] MEDS ORDERED: FLORAJEN3 CAPS460 MG PO (13:19)
[2018-02-07] MEDS ORDERED: GLUCOPHAGE500 MG PO (13:19)
[2018-02-07] MEDS ORDERED: LEVAQUIN750 MG PO (13:20)
[2018-02-07] MEDS ORDERED: NICODERM C1 PATCH .1 TRANSDERM (13:21)
== END 2018-02-07 14:45 | disposition home or self-care (01) | DRG 193 ==
LOC: D.ER 23:58 → D.EDHOLD 02-03 01:41 → D.M2 02-03 01:41 → D.SDCHOLD 02-04 06:34 → D.M2 02-04 06:34
PROVIDERS: Family Medicine
DX: J18.9 Pneumonia, unspecified organism (principal); J96.21 Acute and chronic respiratory failure with hypoxia; I50.33 Acute on chronic diastolic (congestive) heart failure; J44.1 Chronic obstructive pulmonary disease with (acute) exacerbation; J44.0 Chronic obstructive pulmonary disease with (acute) lower respiratory infection; F17.213 Nicotine dependence, cigarettes, with withdrawal; E87.1 Hypo-osmolality and hyponatremia; C34.90 Malignant neoplasm of unspecified part of unspecified bronchus or lung; R73.9 Hyperglycemia, unspecified; D64.9 Anemia, unspecified; G47.33 Obstructive sleep apnea (adult) (pediatric); T17.990A Other foreign object in respiratory tract, part unspecified in causing asphyxiation, initial encounter

== ENCOUNTER 2018-02-10 13:26 | Observation (INO) | payer MEDICARE ==
[~2018-02-10] VITALS: Ht 177.8 cm; Wt 77.6 kg
[2018-02-10] VITALS (7 sets, daily range): BP systolic 117–143; BP diastolic 57–69
[~2018-02-10 13:26] MED LIST changes: +GLUCOPHAGE500 MG PO; +MUCINEX600 MG PO; +NICODERM C1 PATCH .1 TRANSDERM
[2018-02-10 14:12] LABS: BASOPHILS 0.2 % (0-2); EOSINOPHILS 0 % (0-7); HEMATOCRIT 35.8 % (42.0-54.0); HEMOGLOBIN 11.9 g/dL (13.5-17.5); IMMATURE GRANULOCYTES 1.9 % (0-5); LYMPHOCYTES 5.3 % (15-50); MCH 31.6 pg (26.0-34.0); MCHC 33.2 g/dL (31.0-37.0); MEAN PLATELET VOLUME 9.9 fL (7.4-10.4); NEUTROPHILS 84.6 % (40-80); PLATELET COUNT 170 10x3/uL (130-400); RBC 3.77 10x6/uL (4.20-6.10); RDW 13.2 % (11.5-14.5); WBC 13.2 10x3/uL (4.8-10.8)
[2018-02-10 14:30] LABS: ALBUMIN 2.5 g/dL (3.4-5.0); ALKALINE PHOSPHATASE 265 U/L (46-116); ALT (SGPT) 267 U/L (10-68); BILIRUBIN - TOTAL 4.65 mg/dL (0.2-1.3); CALC OSMOLALITY 266 mosm/kg (275-300); CALCIUM 8.4 mg/dL (8.5-10.1); CARBON DIOXIDE 33.9 mmol/L (21.0-32.0); CHLORIDE - SERUM 95 mmol/L (98-107); GLUCOSE 178 mg/dL (74-106); POTASSIUM - SERUM 4.1 mmol/L (3.5-5.1); PROTEIN - SERUM 6.5 g/dL (6.4-8.2); SODIUM 131 mmol/L (136-145); UREA NITROGEN 13 mg/dL (7-18); eGFR NON AFRICAN AMERICAN 78 mL/min (90-120)
[2018-02-10 14:52] LABS: CKMB 0.7 U/L (0.0-3.6); CREATINE KINASE 31 UL (21-232)
[2018-02-10 15:17] LABS: TROPONIN-I < 0.017 ng/mL (0.000-0.060)
[2018-02-10 16:59] LABS: APPEARANCE CLEAR (CLEAR); BILIRUBIN 2+ (NEGATIVE); COLOR DK YELLOW (YELLOW); GLUCOSE NEGATIVE (NEGATIVE); KETONE MODERATE mg/dL (NEGATIVE); NITRITE NEGATIVE (NEGATIVE); PROTEIN TRACE mg/dL (NEGATIVE); UROBILINOGEN NORMAL (NORMAL)
[2018-02-10 17:01] LABS: RED CELLS - URINE 0-5 /hpf (0-5); WHITE CELLS - URINE OCC /hpf (0-5)
[2018-02-11 05:29] LABS: BASOPHILS 0 % (0-2); EOSINOPHILS 0 % (0-7); HEMATOCRIT 35.3 % (42.0-54.0); HEMOGLOBIN 11.6 g/dL (13.5-17.5); LYMPHOCYTES 7.4 % (15-50); MCH 31.3 pg (26.0-34.0); MCHC 32.9 g/dL (31.0-37.0); MCV 95.1 fL (80.0-100.0); MEAN PLATELET VOLUME 10.4 fL (7.4-10.4); MONOCYTES 7.4 % (2-11); NEUTROPHILS 84.2 % (40-80); PLATELET COUNT 166 10x3/uL (130-400); RBC 3.71 10x6/uL (4.20-6.10); RDW 13.2 % (11.5-14.5)
[2018-02-11 05:38] VITALS: BP 120/60
[2018-02-11 05:50] LABS: ALBUMIN 2.1 g/dL (3.4-5.0); ALKALINE PHOSPHATASE 239 U/L (46-116); ALT (SGPT) 207 U/L (10-68); CALCIUM 8.5 mg/dL (8.5-10.1); CHLORIDE - SERUM 101 mmol/L (98-107); SODIUM 141 mmol/L (136-145); eGFR NON AFRICAN AMERICAN 78 mL/min (90-120)
[2018-02-11 05:52] LABS: CALC OSMOLALITY 292 mosm/kg (275-300); GLUCOSE 253 mg/dL (74-106); UREA NITROGEN 20 mg/dL (7-18)
[2018-02-11 12:21] VITALS: Ht 177.8 cm; Wt 77.6 kg
[2018-02-11 14:48] VITALS: BP 134/71
[2018-02-11 20:00] VITALS: BP 114/76
[2018-02-12 04:00] VITALS: BP 116/74
[2018-02-12 05:30] LABS: BASOPHILS 0.1 % (0-2); EOSINOPHILS 0.7 % (0-7); HEMATOCRIT 33.8 % (42.0-54.0); HEMOGLOBIN 10.8 g/dL (13.5-17.5); IMMATURE GRANULOCYTES 1.4 % (0-5); LYMPHOCYTES 15.1 % (15-50); MCH 31.1 pg (26.0-34.0); MEAN PLATELET VOLUME 10.3 fL (7.4-10.4); MONOCYTES 14.4 % (2-11); NEUTROPHILS 68.3 % (40-80); PLATELET COUNT 177 10x3/uL (130-400); RBC 3.47 10x6/uL (4.20-6.10); RDW 13.4 % (11.5-14.5); WBC 7.2 10x3/uL (4.8-10.8)
[2018-02-12 05:34] LABS: MCV 97.4 fL (80.0-100.0)
[2018-02-12 05:56] LABS: ALBUMIN 1.9 g/dL (3.4-5.0); ALKALINE PHOSPHATASE 196 U/L (46-116); BILIRUBIN - TOTAL 0.53 mg/dL (0.2-1.3); CARBON DIOXIDE 34.5 mmol/L (21.0-32.0); CHLORIDE - SERUM 102 mmol/L (98-107); CREATININE - SERUM 0.9 mg/dL (0.6-1.3); POTASSIUM - SERUM 3.8 mmol/L (3.5-5.1); PROTEIN - SERUM 5.5 g/dL (6.4-8.2); SODIUM 139 mmol/L (136-145); UREA NITROGEN 20 mg/dL (7-18); eGFR NON AFRICAN AMERICAN 88 mL/min (90-120)
[2018-02-12 05:57] LABS: ALT (SGPT) 133 U/L (10-68); CALC OSMOLALITY 283 mosm/kg (275-300); GLUCOSE 155 mg/dL (74-106)
[2018-02-12 09:03] VITALS: BP 123/61
[2018-02-12 12:11] VITALS: BP 128/82
== END 2018-02-12 16:07 | disposition home or self-care (01) ==
LOC: D.ER 13:26 → D.M2 16:57 → D.EDHOLD 16:57 → OBSVTIME 16:57 → D.M2 17:56
PROVIDERS: Family Medicine; Internal Medicine Nephrology
DX: R78.81 Bacteremia (principal); J44.1 Chronic obstructive pulmonary disease with (acute) exacerbation; I50.32 Chronic diastolic (congestive) heart failure; C34.90 Malignant neoplasm of unspecified part of unspecified bronchus or lung; F17.213 Nicotine dependence, cigarettes, with withdrawal; G47.33 Obstructive sleep apnea (adult) (pediatric); D64.9 Anemia, unspecified

== ENCOUNTER 2018-02-20 05:02 | Inpatient (IN) | payer MEDICARE ==
[2018-02-20] VITALS (10 sets, daily range): BP systolic 104–133; BP diastolic 54–96; BMI 30.1; BMI 29.0
[~2018-02-20] VITALS: Ht 177.8 cm; Wt 122.0 kg
--- NOTE | ~2018-02-20 | OP ---
PATIENT NAME: KAREN VALLE SR MEDICAL RECORD: [id number] :47 LOCATION:[facility] D.2311 ADMISSION DATE:02/20/18 SURGEON: FOREIGN HERNANDEZ MD DATE OF OPERATION: 02/28/2018 PREOPERATIVE DIAGNOSES: 1. Need of additional IV access. 2. Septicemia. 3. On vasopressor therapy. POSTOPERATIVE DIAGNOSES: 1. Need of additional IV access. 2. Septicemia. 3. On vasopressor therapy. PROCEDURE: Insertion of right neck triple-lumen central venous catheter. SURGEON: Foreign Hernandez MD CLINICAL RADIOLOGIST: None. BLOOD LOSS: Minimal. ANESTHESIA: Local. COMPLICATIONS: None. OPERATIVE COURSE: The patient was seen in his ICU bed. The entire procedure was performed with the presence of a nurse. He was positioned in the Trendelenburg position. The right neck and right upper chest were sterilely prepped and draped. Local anesthetic was used to infiltrate the skin and subcutaneous tissues at the base of the right neck. The right internal jugular vein was percutaneously accessed in an antegrade fashion. A guidewire passed easily. A small skin nisha was accomplished. A vessel dilator was used to dilate a subcutaneous tract. A 16 cm triple lumen central venous catheter was inserted into the hub. It was sutured in place times 3. All lumens flushed easily and aspirated dark, nonpulsatile blood. A stat portable chest x-ray is pending. TRANSINT:[id number] Voice Confirmation ID: [id number] DOCUMENT ID: [id number] FOREIGN HERNANDEZ MD at 2120 CC: [id number] DICTATION DATE: 02/28/181942 LINUX CONSULTANT: 02/28/182116 ADM IN [facility] [address] [place] [id number]
--- NOTE | ~2018-02-20 | EC ---
PATIENT:KAREN VALLE SR DATE OF SERVICE: 02/20/18 SEX: M MEDICAL RECORD: [id number] DATE OF : 47 LOCATION:[place] [address] AGE OF PATIENT: 72 ADMISSION DATE: 02/20/18 REFERRING PHYSICIAN: INTERPRETING PHYSICIAN: TITO BLACKWELL MD ECHOCARDIOGRAM REPORT ECHO CHARGES 4 ECHO COMPLETE Date: 03/11/18 CLINICAL DIAGNOSIS: AFIB ECHOCARDIOGRAPHIC MEASUREMENTS (adult normal given) AC root (d.<3.7cm) 3.0 cm LV Septum d (<1.2 cm> 0.9 cm Valve Excursion 1.2 cm LV Septum (systole) 0.9 cm Left Atria (s.<4.0cm> 2.8 cm LVPW d(<1.2cm) 0.8 cm RV (d.<2.3cm) 2.1 cm LVPW (sytole) 1.2 cm LV diastole(<5.6CM) 4.8 cm MV E-F(>70mm/sec) cm LV systole 3.7 cm LVOT Diameter 1.6 cm MV exc.(>10mm) cm Est.ejection fraction (50-75%) % DOPPLER: LVIT cm/sec A 79 cm/sec E 95 cm/sec LA cm/sec RVSP 25.2 mmHg LVOT 131 cm/sec AOP1/2T m/s Asc. Ao 171 cm/sec RVOT 67 cm/sec RA cm/sec PA 90 cm/sec AV Gradient Peak 11.7 mmHg AV Mean 6.8 mmHg AV Area 1.6 cm MV Gradient Peak 4.0 mmHg MV Mean 1.9 mmHg MV Area cm COMMENTS: Forest Supervisor: Piero GUILLEN Rough Rounder: 1 Dr. Blackwell TAPE# PACS Pericardial Effusion N DATE OF SERVICE: 03/11/2018 FINDINGS: 1. Left ventricular chamber size is within normal limits. Left ventricular systolic function is normal. Overall ejection fraction estimated at 60%. 2. Left atrium, right atrium, right ventricular chamber sizes are within normal limits. 3. Valvular structures have normal structure and motion. 4. Doppler interrogation reveals no significant valvular insufficiency or stenosis. ECHOCARDIOGRAM REPORT [id number] KAREN VALLE SR 5. No evidence of pericardial effusion or left ventricular thrombus. TRANSINT:[id number] Voice Confirmation ID: [id number] DOCUMENT ID: [id number] TITO BLACKWELL MD at 1859 CC: [id number] DICTATION DATE: 03/12/1855 FROZEN YOGURT MAKER: 03/12/18 09 ADM IN [place] [id number] [place] [id number]
--- NOTE | ~2018-02-20 | CN ---
PATIENT NAME:KAREN BIRMINGHAM SR MEDICAL RECORD: [id number] : 47 LOCATION:[facility].2311 ADMIT DATE: 02/20/18 ACCOUNT: [id number] CONSULTING PHYSICIAN: CASSI MORTENSEN MD REFERRING PHYSICIAN: LESLIE ARRIOLA MD DATE OF CONSULTATION: 02/20/2018 CONSULT REQUESTING PHYSICIAN: Leslie Arriola MD REASON FOR CONSULTATION: Severe COPD, abdominal pain, cholecystitis. HISTORY OF PRESENT ILLNESS: Mr. Birmingham is a 72-year-old gentleman, very well known to me, now he is very confused and agitated. The patient woke up with severe right upper quadrant pain with associated nausea and vomiting. According to the patient, his breathing is not any worse. The patient had a CTA in the ER, which showed the mass in the right lower lobe has increased in size. The patient states he does not have any PET scan. REVIEW OF SYSTEMS: As in history of present illness. PAST MEDICAL HISTORY: 1. COPD of severe degree. FEV1 of 0.63 liter 20%, home oxygen dependent. Home BiPAP Trilogy dependent for hypoxic and hypercapnic respiratory failure. 2. Congestive heart failure. 3. Asthma COPD overlap syndrome. 4. Chronic hypoxic hypercapnic respiratory failure. PAST SURGICAL HISTORY: 1. Appendectomy. 2. Tracheostomy in the past. ALLERGIES: There is no known drug allergy. MEDICATIONS: On Message Bus is reviewed. PERSONAL AND SOCIAL HISTORY: The patient, I believe, still continues to smoke. He is a nondrinker. FAMILY HISTORY: Noncontributory. PHYSICAL EXAMINATION: GENERAL: Now, the patient is lying comfortably. He is very confused and agitated. VITAL SIGNS: The blood pressure is 104/60, pulse is 122, respiration is 20, temperature is 103.4, SPO2 is 93% on oxymizer. HEENT: Conjunctivae are pink. Sclerae are not icteric. NECK: Supple. There is no JVD. CHEST: There is prolonged expiration with wheezing. HEART: Rate and rhythm is regular, normal sound, no murmur. ABDOMEN: Firm. There is tenderness in the right upper quadrant. No guarding, no rigidity. RECTAL: Deferred. EXTREMITIES: No cyanosis, no clubbing, no pedal edema. SKIN: Warm, normal turgor. CENTRAL NERVOUS SYSTEM: The patient is very confused and agitated. There is no CONSULT REPORT [id number] KAREN BIRMINGHAM SR obvious cranial nerve abnormality. LABORATORY DATA: CBC: WBC 20.9, hemoglobin 12.6, the hematocrit is 35.8, the platelet count 291. Chemistry: Sodium 138, potassium 4.5, BUN is 10, creatinine 0.9, glucose 156. ABG: The pH is 7.41, pCO2 of 53.1, the pO2 is 71, bicarbonate is 34.5, this was done on 2 liters. IMAGING: CTA of the chest: There is no pulmonary embolism, but the mass has increased in size to 4.2 cm in the right lower lobe. There are enlarged right hilar lymph nodes. There is also a small pleural effusion. There is also a 2-cm spiculated right upper lobe lung nodule. There are emphysematous changes. IMPRESSION: 1. Qmjpz-lm-ujmwwzh hypoxic respiratory failure. 2. Acute exacerbation of severe COPD. 3. Asthma COPD overlap syndrome. 4. Mass, right lower lobe; nodule, right upper lobe; most likely malignant in process that has increased in size from 1 to 1.2 cm and now it is 4.2 cm and the spiculated nodule has increased to 2 cm in the right upper lobe. 5. Bilateral small right pleural effusion. 6. History of congestive heart failure. 7. Severe emphysema. 8. Leukocytosis secondary to cholecystitis. 9. Tobacco dependence syndrome. RECOMMENDATION: 1. We will continue albuterol/ipratropium nebulizer. 2. Brovana, budesonide nebulizer. 3. Zosyn IV. 4. Start methylprednisolone IV. 5. Daliresp 500 mcg daily. 6. I will request IR for transthoracic needle biopsy. Pulmonary point of view, the patient is high risk, for any procedure considering the patient's severe COPD with FEV1 just 20%, but the patient was intubated and extubated with the last admission. At this stage, the patient is FULL CODE. He is very confused and agitated. Dr. Arriola, thank you for involving me in the care of Mr. Birmingham. TRANSINT:[id number] Voice Confirmation ID: [id number] DOCUMENT ID: [id number] CASSI MORTENSEN MD at 1301 CC: [id number] DICTATION DATE: 02/20/18 1228 LOG GRADER: 02/20/18 1242 DIS IN 03/18/18 [facility] [address] [facility] [place] [address]
[2018-02-20 05:24] LABS: HEMATOCRIT 35.8 % (42.0-54.0); MCH 31.5 pg (26.0-34.0); MCHC 33.2 g/dL (31.0-37.0); MCV 94.7 fL (80.0-100.0); PLATELET COUNT 291 10x3/uL (130-400); RBC 3.78 10x6/uL (4.20-6.10); RDW 13.8 % (11.5-14.5); WBC 20.9 10x3/uL (4.8-10.8)
[2018-02-20 05:25] LABS: HEMOGLOBIN 12.6 g/dL (13.5-17.5)
[2018-02-20 05:44] LABS: ALBUMIN 2.3 g/dL (3.4-5.0); ALKALINE PHOSPHATASE 177 U/L (46-116); ALT (SGPT) 84 U/L (10-68); BILIRUBIN - TOTAL 0.79 mg/dL (0.2-1.3); CALC OSMOLALITY 277 mosm/kg (275-300); CALCIUM 8.9 mg/dL (8.5-10.1); CARBON DIOXIDE 36.8 mmol/L (21.0-32.0); CHLORIDE - SERUM 99 mmol/L (98-107); CREATININE - SERUM 0.9 mg/dL (0.6-1.3); GLUCOSE 156 mg/dL (74-106); POTASSIUM - SERUM 4.5 mmol/L (3.5-5.1); PROTEIN - SERUM 6.5 g/dL (6.4-8.2); SODIUM 138 mmol/L (136-145); UREA NITROGEN 10 mg/dL (7-18); eGFR NON AFRICAN AMERICAN 88 mL/min (90-120)
[2018-02-20 05:51] LABS: CREATINE KINASE 30 UL (21-232); PRO BNP 414 pg/mL (0-125)
[2018-02-20 05:51] LABS: APPEARANCE CLEAR (CLEAR); BILIRUBIN NEGATIVE (NEGATIVE); COLOR YELLOW (YELLOW); GLUCOSE NEGATIVE (NEGATIVE); KETONE NEGATIVE (NEGATIVE); NITRITE NEGATIVE (NEGATIVE); PROTEIN NEGATIVE (NEGATIVE); UROBILINOGEN NORMAL (NORMAL)
[2018-02-20 05:53] LABS: TROPONIN-I < 0.017 ng/mL (0.000-0.060)
[2018-02-20 05:59] LABS: UDS - AMPHET NEGATIVE QUAL (NEGATIVE); UDS - BARB NEGATIVE QUAL (NEGATIVE); UDS - BENZO NEGATIVE QUAL (NEGATIVE); UDS - COCAINE NEGATIVE QUAL (NEGATIVE); UDS - OPIATE NEGATIVE QUAL (NEGATIVE); UDS - PCP NEGATIVE QUAL (NEGATIVE); UDS - THC NEGATIVE QUAL (NEGATIVE)
[2018-02-20 07:23] LABS: LYMPHOCYTES 12 % (15-50); MONOCYTES 5 % (2-11); NEUTROPHILS 80 % (40-80); PLATELET ESTIMATE NORMAL
[2018-02-20 10:52] LABS: APTT 26.3 SECONDS (22.8-39.4); INR 1.22 (0.85-1.17)
[2018-02-21] VITALS (12 sets, daily range): BP systolic 90–134; BP diastolic 45–71
[2018-02-21 06:27] LABS: BASOPHILS 0.1 % (0-2); EOSINOPHILS 0 % (0-7); HEMATOCRIT 34.3 % (42.0-54.0); IMMATURE GRANULOCYTES 0.4 % (0-5); MCH 30.7 pg (26.0-34.0); MCHC 32.1 g/dL (31.0-37.0); MCV 95.8 fL (80.0-100.0); MEAN PLATELET VOLUME 10.7 fL (7.4-10.4); MONOCYTES 2.4 % (2-11); NEUTROPHILS 93.1 % (40-80); PLATELET COUNT 189 10x3/uL (130-400); RBC 3.58 10x6/uL (4.20-6.10); RDW 13.8 % (11.5-14.5); WBC 16.4 10x3/uL (4.8-10.8)
[2018-02-21 06:49] LABS: ALBUMIN 1.9 g/dL (3.4-5.0); ALKALINE PHOSPHATASE 141 U/L (46-116); ALT (SGPT) 86 U/L (10-68); BILIRUBIN - TOTAL 1.07 mg/dL (0.2-1.3); CALCIUM 8.5 mg/dL (8.5-10.1); CARBON DIOXIDE 35.7 mmol/L (21.0-32.0); CHLORIDE - SERUM 102 mmol/L (98-107); CREATININE - SERUM 0.8 mg/dL (0.6-1.3); POTASSIUM - SERUM 4.8 mmol/L (3.5-5.1); PROTEIN - SERUM 5.9 g/dL (6.4-8.2); SODIUM 139 mmol/L (136-145); eGFR NON AFRICAN AMERICAN > 90 mL/min (90-120)
[2018-02-21 07:02] LABS: CALC OSMOLALITY 289 mosm/kg (275-300); GLUCOSE 289 mg/dL (74-106); UREA NITROGEN 14 mg/dL (7-18)
[2018-02-22] VITALS: BP 104/43
[2018-02-22 04:00] VITALS: BP 108/65
[2018-02-22 05:06] LABS: BASOPHILS 0 % (0-2); EOSINOPHILS 0 % (0-7); HEMATOCRIT 28.6 % (42.0-54.0); HEMOGLOBIN 9.1 g/dL (13.5-17.5); IMMATURE GRANULOCYTES 0.3 % (0-5); LYMPHOCYTES 3.6 % (15-50); MCH 30.3 pg (26.0-34.0); MCHC 31.8 g/dL (31.0-37.0); MCV 95.3 fL (80.0-100.0); MEAN PLATELET VOLUME 10.4 fL (7.4-10.4); MONOCYTES 2.8 % (2-11); NEUTROPHILS 93.3 % (40-80); PLATELET COUNT 177 10x3/uL (130-400); RDW 13.8 % (11.5-14.5); WBC 13.7 10x3/uL (4.8-10.8)
[2018-02-22 05:36] LABS: ALBUMIN 1.6 g/dL (3.4-5.0); ALKALINE PHOSPHATASE 104 U/L (46-116); ALT (SGPT) 164 U/L (10-68); BILIRUBIN - TOTAL 0.55 mg/dL (0.2-1.3); CALC OSMOLALITY 283 mosm/kg (275-300); CALCIUM 7.9 mg/dL (8.5-10.1); CARBON DIOXIDE 32.8 mmol/L (21.0-32.0); CHLORIDE - SERUM 100 mmol/L (98-107); CREATININE - SERUM 0.9 mg/dL (0.6-1.3); GLUCOSE 327 mg/dL (74-106); POTASSIUM - SERUM 4.4 mmol/L (3.5-5.1); PROTEIN - SERUM 5.2 g/dL (6.4-8.2); SODIUM 135 mmol/L (136-145); UREA NITROGEN 15 mg/dL (7-18); eGFR NON AFRICAN AMERICAN 88 mL/min (90-120)
[2018-02-22 06:00] VITALS: BP 120/75
[2018-02-22 20:00] VITALS: BP 146/80
[2018-02-23] VITALS (13 sets, daily range): BP systolic 104–142; BP diastolic 67–78
[2018-02-23 05:24] LABS: BASOPHILS 0.1 % (0-2); EOSINOPHILS 0 % (0-7); HEMATOCRIT 28.6 % (42.0-54.0); HEMOGLOBIN 9.1 g/dL (13.5-17.5); IMMATURE GRANULOCYTES 0.8 % (0-5); MCH 30.3 pg (26.0-34.0); MCHC 31.8 g/dL (31.0-37.0); MCV 95.3 fL (80.0-100.0); MEAN PLATELET VOLUME 10.3 fL (7.4-10.4); MONOCYTES 4.5 % (2-11); NEUTROPHILS 90.6 % (40-80); PLATELET COUNT 186 10x3/uL (130-400); RDW 13.6 % (11.5-14.5); WBC 9.5 10x3/uL (4.8-10.8)
[2018-02-23 05:41] LABS: ALBUMIN 1.6 g/dL (3.4-5.0); ALKALINE PHOSPHATASE 91 U/L (46-116); BILIRUBIN - TOTAL 0.44 mg/dL (0.2-1.3); CALC OSMOLALITY 290 mosm/kg (275-300); CALCIUM 8.1 mg/dL (8.5-10.1); CARBON DIOXIDE 35.4 mmol/L (21.0-32.0); CHLORIDE - SERUM 101 mmol/L (98-107); CREATININE - SERUM 0.8 mg/dL (0.6-1.3); GLUCOSE 344 mg/dL (74-106); POTASSIUM - SERUM 4.7 mmol/L (3.5-5.1); PROTEIN - SERUM 5.5 g/dL (6.4-8.2); SODIUM 138 mmol/L (136-145); UREA NITROGEN 15 mg/dL (7-18); eGFR NON AFRICAN AMERICAN > 90 mL/min (90-120)
[2018-02-23 05:42] LABS: ALT (SGPT) 104 U/L (10-68)
[2018-02-23 07:04] LABS: INR 1.16 (0.85-1.17); PROTIME 14.3 SECONDS (11.6-15.0)
[2018-02-24 00:04] VITALS: BP 137/83
[2018-02-24 04:00] VITALS: BP 127/65
[2018-02-24 05:40] LABS: BASOPHILS 0.2 % (0-2); EOSINOPHILS 0 % (0-7); HEMATOCRIT 25.3 % (42.0-54.0); HEMOGLOBIN 8.1 g/dL (13.5-17.5); IMMATURE GRANULOCYTES 2.3 % (0-5); LYMPHOCYTES 7.3 % (15-50); MCH 30.6 pg (26.0-34.0); MCV 95.5 fL (80.0-100.0); MEAN PLATELET VOLUME 10.4 fL (7.4-10.4); MONOCYTES 6.2 % (2-11); PLATELET COUNT 175 10x3/uL (130-400); RBC 2.65 10x6/uL (4.20-6.10); RDW 13.9 % (11.5-14.5)
[2018-02-24 05:42] LABS: WBC 6.6 10x3/uL (4.8-10.8)
[2018-02-24 06:01] LABS: ALBUMIN 1.5 g/dL (3.4-5.0); ALKALINE PHOSPHATASE 79 U/L (46-116); BILIRUBIN - TOTAL 0.34 mg/dL (0.2-1.3); CALC OSMOLALITY 289 mosm/kg (275-300); CALCIUM 7.9 mg/dL (8.5-10.1); CARBON DIOXIDE 37.2 mmol/L (21.0-32.0); CHLORIDE - SERUM 100 mmol/L (98-107); CREATININE - SERUM 0.7 mg/dL (0.6-1.3); GLUCOSE 324 mg/dL (74-106); MAGNESIUM - SERUM 2.2 mg/dL (1.8-2.4); PHOSPHOROUS 2.5 mg/dL (2.5-4.9); POTASSIUM - SERUM 4.5 mmol/L (3.5-5.1); PROTEIN - SERUM 5.1 g/dL (6.4-8.2); SODIUM 138 mmol/L (136-145); UREA NITROGEN 15 mg/dL (7-18); eGFR NON AFRICAN AMERICAN > 90 mL/min (90-120)
[2018-02-24 06:03] LABS: ALT (SGPT) 65 U/L (10-68)
[2018-02-24 07:40] VITALS: BP 110/63
[2018-02-24 11:37] VITALS: BP 121/68
[2018-02-24 15:16] VITALS: BP 129/68
[2018-02-24 21:00] VITALS: BP 117/67
[2018-02-25 05:42] VITALS: BP 130/80
[2018-02-25 06:48] LABS: BASOPHILS 0.4 % (0-2); EOSINOPHILS 0 % (0-7); HEMOGLOBIN 8.8 g/dL (13.5-17.5); IMMATURE GRANULOCYTES 6.6 % (0-5); LYMPHOCYTES 8.6 % (15-50); MCH 30.6 pg (26.0-34.0); MCHC 32.6 g/dL (31.0-37.0); MCV 93.8 fL (80.0-100.0); MEAN PLATELET VOLUME 10.1 fL (7.4-10.4); MONOCYTES 9.6 % (2-11); NEUTROPHILS 74.8 % (40-80); PLATELET COUNT 196 10x3/uL (130-400); RBC 2.88 10x6/uL (4.20-6.10); RDW 13.6 % (11.5-14.5); WBC 7.4 10x3/uL (4.8-10.8)
[2018-02-25 06:54] LABS: % SATURATION 64 % (15-55); IRON 92 ug/dl (35-150); TOTAL IRON BIND CAPACITY 143 ug/dl (260-445)
[2018-02-25 07:09] LABS: ALBUMIN 1.7 g/dL (3.4-5.0); ALKALINE PHOSPHATASE 76 U/L (46-116); ALT (SGPT) 59 U/L (10-68); BILIRUBIN - TOTAL 0.55 mg/dL (0.2-1.3); CALC OSMOLALITY 285 mosm/kg (275-300); CALCIUM 7.9 mg/dL (8.5-10.1); CARBON DIOXIDE 35.3 mmol/L (21.0-32.0); CHLORIDE - SERUM 100 mmol/L (98-107); CREATININE - SERUM 0.7 mg/dL (0.6-1.3); FERRITIN 447 ng/mL (3-244); GLUCOSE 297 mg/dL (74-106); POTASSIUM - SERUM 4.5 mmol/L (3.5-5.1); PROTEIN - SERUM 5.3 g/dL (6.4-8.2); SODIUM 137 mmol/L (136-145); UREA NITROGEN 14 mg/dL (7-18); eGFR NON AFRICAN AMERICAN > 90 mL/min (90-120)
[2018-02-25 07:10] LABS: UNSAT IRON BIND CAPACITY 51 ug/dl (150-375)
[2018-02-25 07:22] VITALS: BP 139/68
[2018-02-25 11:25] VITALS: BP 116/61
[2018-02-25 15:05] VITALS: BP 142/82
[2018-02-25 17:33] VITALS: Ht 177.8 cm; Wt 122.0 kg
[2018-02-25 20:56] VITALS: BP 112/52
[2018-02-26 05:47] LABS: BASOPHILS 0.2 % (0-2); EOSINOPHILS 0 % (0-7); HEMATOCRIT 27.1 % (42.0-54.0); HEMOGLOBIN 8.9 g/dL (13.5-17.5); IMMATURE GRANULOCYTES 5.1 % (0-5); LYMPHOCYTES 6.8 % (15-50); MCH 30.7 pg (26.0-34.0); MCHC 32.8 g/dL (31.0-37.0); MCV 93.4 fL (80.0-100.0); MEAN PLATELET VOLUME 10.3 fL (7.4-10.4); MONOCYTES 7.7 % (2-11); NEUTROPHILS 80.2 % (40-80); PLATELET COUNT 185 10x3/uL (130-400); RDW 13.5 % (11.5-14.5)
[2018-02-26 05:52] LABS: WBC 12.9 10x3/uL (4.8-10.8)
[2018-02-26 06:09] VITALS: BP 134/80
[2018-02-26 06:17] LABS: CALC OSMOLALITY 284 mosm/kg (275-300); CARBON DIOXIDE 36.8 mmol/L (21.0-32.0); CHLORIDE - SERUM 98 mmol/L (98-107); CREATININE - SERUM 0.8 mg/dL (0.6-1.3); GLUCOSE 268 mg/dL (74-106); POTASSIUM - SERUM 4.4 mmol/L (3.5-5.1); SODIUM 138 mmol/L (136-145); UREA NITROGEN 12 mg/dL (7-18); eGFR NON AFRICAN AMERICAN > 90 mL/min (90-120)
[2018-02-26 07:53] VITALS: BP 122/59
[2018-02-26 12:29] VITALS: BP 116/74
[2018-02-26 20:00] VITALS: BP 109/60
[2018-02-27] VITALS (10 sets, daily range): BP systolic 88–136; BP diastolic 36–74
[2018-02-27 04:50] LABS: BASOPHILS 0.2 % (0-2); EOSINOPHILS 0 % (0-7); HEMATOCRIT 31.8 % (42.0-54.0); HEMOGLOBIN 10.5 g/dL (13.5-17.5); IMMATURE GRANULOCYTES 5.2 % (0-5); LYMPHOCYTES 8.5 % (15-50); MCH 30.7 pg (26.0-34.0); MEAN PLATELET VOLUME 10.5 fL (7.4-10.4); MONOCYTES 6.6 % (2-11); NEUTROPHILS 79.5 % (40-80); PLATELET COUNT 211 10x3/uL (130-400); RBC 3.42 10x6/uL (4.20-6.10); RDW 13.9 % (11.5-14.5)
[2018-02-27 05:10] LABS: CALC OSMOLALITY 274 mosm/kg (275-300); CALCIUM 8.3 mg/dL (8.5-10.1); CARBON DIOXIDE 36.9 mmol/L (21.0-32.0); CHLORIDE - SERUM 96 mmol/L (98-107); CREATININE - SERUM 0.7 mg/dL (0.6-1.3); GLUCOSE 244 mg/dL (74-106); SODIUM 134 mmol/L (136-145); UREA NITROGEN 9 mg/dL (7-18); eGFR NON AFRICAN AMERICAN > 90 mL/min (90-120)
[2018-02-27 05:18] LABS: POTASSIUM - SERUM 3.7 mmol/L (3.5-5.1)
[2018-02-27] MEDS ORDERED: PREDNISONE20 MG PO (09:23)
[2018-02-27] MEDS ORDERED: LEVAQUIN250 MG PO (09:24)
[2018-02-27 12:43] LABS: ALBUMIN 2.3 g/dL (3.4-5.0); ALKALINE PHOSPHATASE 242 U/L (46-116); ALT (SGPT) 247 U/L (10-68); CALCIUM 8.9 mg/dL (8.5-10.1); CARBON DIOXIDE 35.1 mmol/L (21.0-32.0); CHLORIDE - SERUM 94 mmol/L (98-107); GLUCOSE 270 mg/dL (74-106); POTASSIUM - SERUM 4.2 mmol/L (3.5-5.1); PROTEIN - SERUM 5.6 g/dL (6.4-8.2); SODIUM 134 mmol/L (136-145); eGFR NON AFRICAN AMERICAN 88 mL/min (90-120)
[2018-02-27 12:49] LABS: CALC OSMOLALITY 277 mosm/kg (275-300); UREA NITROGEN 12 mg/dL (7-18)
[2018-02-27 12:50] LABS: CREATININE - SERUM 0.9 mg/dL (0.6-1.3)
[2018-02-27 12:54] LABS: AMYLASE - SERUM 125 U/L (25-115); CKMB 0.8 U/L (0.0-3.6); CREATINE KINASE 21 UL (21-232); LIPASE 508 U/L (73-393); TROPONIN-I < 0.017 ng/mL (0.000-0.060)
[2018-02-27 13:56] LABS: APTT 22.9 SECONDS (22.8-39.4); INR 1.15 (0.85-1.17); PROTIME 14.3 SECONDS (11.6-15.0)
[2018-02-27 19:16] LABS: CKMB 0.7 U/L (0.0-3.6); CREATINE KINASE 27 UL (21-232)
[2018-02-27 19:17] LABS: TROPONIN-I 0.017 ng/mL (0.000-0.060)
[2018-02-28] VITALS (57 sets, daily range): BP systolic 56–103; BP diastolic 33–81
[2018-02-28 01:44] LABS: CKMB 1.7 U/L (0.0-3.6); CREATINE KINASE 51 UL (21-232); TROPONIN-I 0.028 ng/mL (0.000-0.060)
[2018-02-28 03:44] LABS: BASOPHILS 0.1 % (0-2); EOSINOPHILS 0 % (0-7); HEMATOCRIT 32.6 % (42.0-54.0); HEMOGLOBIN 10.6 g/dL (13.5-17.5); IMMATURE GRANULOCYTES 1.4 % (0-5); LYMPHOCYTES 4.6 % (15-50); MCH 30.5 pg (26.0-34.0); MCHC 32.5 g/dL (31.0-37.0); MCV 93.9 fL (80.0-100.0); MEAN PLATELET VOLUME 11.4 fL (7.4-10.4); MONOCYTES 5.2 % (2-11); NEUTROPHILS 88.7 % (40-80); PLATELET COUNT 220 10x3/uL (130-400); RBC 3.47 10x6/uL (4.20-6.10); RDW 14.7 % (11.5-14.5); WBC 21.4 10x3/uL (4.8-10.8)
[2018-02-28 03:53] LABS: BILIRUBIN - TOTAL 1.48 mg/dL (0.2-1.3); CALCIUM 7.9 mg/dL (8.5-10.1); CARBON DIOXIDE 30.1 mmol/L (21.0-32.0); MAGNESIUM - SERUM 1.5 mg/dL (1.8-2.4); PHOSPHOROUS 5.3 mg/dL (2.5-4.9); POTASSIUM - SERUM 4.1 mmol/L (3.5-5.1); PROTEIN - SERUM 4.9 g/dL (6.4-8.2); TROPONIN-I 0.028 ng/mL (0.000-0.060)
[2018-02-28 04:04] LABS: ALBUMIN 1.5 g/dL (3.4-5.0); CREATININE - SERUM 2.2 mg/dL (0.6-1.3)
[2018-03-01] VITALS (68 sets, daily range): BP systolic 75–156; BP diastolic 41–86
[2018-03-01 05:34] LABS: BASOPHILS 0.1 % (0-2); EOSINOPHILS 0 % (0-7); HEMATOCRIT 25.7 % (42.0-54.0); HEMOGLOBIN 8.3 g/dL (13.5-17.5); LYMPHOCYTES 1.7 % (15-50); MCH 30.4 pg (26.0-34.0); MCHC 32.3 g/dL (31.0-37.0); MCV 94.1 fL (80.0-100.0); MEAN PLATELET VOLUME 10.9 fL (7.4-10.4); NEUTROPHILS 92.2 % (40-80); PLATELET COUNT 180 10x3/uL (130-400); RBC 2.73 10x6/uL (4.20-6.10); RDW 15.6 % (11.5-14.5); WBC 25.4 10x3/uL (4.8-10.8)
[2018-03-01 06:01] LABS: ALBUMIN 1.8 g/dL (3.4-5.0); BILIRUBIN - TOTAL 0.91 mg/dL (0.2-1.3); CALCIUM 7.2 mg/dL (8.5-10.1); PHOSPHOROUS 5.9 mg/dL (2.5-4.9); PROTEIN - SERUM 5.1 g/dL (6.4-8.2)
[2018-03-01 06:02] LABS: ANION GAP 20.1 mmol/L (8-16); CREATININE - SERUM 3.5 mg/dL (0.6-1.3); POTASSIUM - SERUM 5.1 mmol/L (3.5-5.1)
[2018-03-01 06:04] LABS: TROPONIN-I 0.115 ng/mL (0.000-0.060)
[2018-03-01 15:28] LABS: BASOPHILS 0.1 % (0-2); EOSINOPHILS 0 % (0-7); HEMATOCRIT 23.8 % (42.0-54.0); HEMOGLOBIN 7.8 g/dL (13.5-17.5); IMMATURE GRANULOCYTES 0.8 % (0-5); LYMPHOCYTES 1.6 % (15-50); MCH 31.1 pg (26.0-34.0); MCHC 32.8 g/dL (31.0-37.0); MCV 94.8 fL (80.0-100.0); MEAN PLATELET VOLUME 10.4 fL (7.4-10.4); MONOCYTES 4.9 % (2-11); NEUTROPHILS 92.6 % (40-80); RBC 2.51 10x6/uL (4.20-6.10); RDW 15.6 % (11.5-14.5); WBC 19.3 10x3/uL (4.8-10.8)
[2018-03-01 15:31] LABS: PLATELET COUNT 139 10x3/uL (130-400)
[2018-03-01 18:18] LABS: APPEARANCE CLOUDY (CLEAR); BILIRUBIN NEGATIVE (NEGATIVE); COLOR AMBER (YELLOW); GLUCOSE 50 mg/dL (NEGATIVE); KETONE NEGATIVE (NEGATIVE); NITRITE NEGATIVE (NEGATIVE); PROTEIN 1+ mg/dL (NEGATIVE); UROBILINOGEN NORMAL (NORMAL)
[2018-03-01 18:30] LABS: AMORPHOUS SEDIMENT >1+ /lpf (NONE SEEN); BACTERIA MANY /hpf (NONE SEEN); EPITHELIAL CELLS 0-5 /hpf (0-5); GRANULAR CAST 0-5 /lpf (NONE SEEN); HYALINE CAST OCC /lpf (NONE SEEN); RED CELLS - URINE 0-5 /hpf (0-5); WAXY CAST RARE /lpf (NONE SEEN); WHITE CELLS - URINE 0-5 /hpf (0-5); YEAST >1+ /hpf (NONE SEEN)
[2018-03-01 18:35] LABS: CREATININE - URINE 148.3 mg/dL (30-125)
[2018-03-01 18:38] LABS: PRO/CRE RATIO URINE 3.4 mg/g; PROTEIN - URINE 502.4 mg/dL (0.0-11.9)
[2018-03-02] VITALS (32 sets, daily range): BP systolic 74–138; BP diastolic 40–122
[2018-03-02 04:07] LABS: BASOPHILS 0.1 % (0-2); EOSINOPHILS 0 % (0-7); HEMATOCRIT 27.1 % (42.0-54.0); IMMATURE GRANULOCYTES 0.9 % (0-5); LYMPHOCYTES 2.2 % (15-50); MCH 30.2 pg (26.0-34.0); MCHC 33.2 g/dL (31.0-37.0); MEAN PLATELET VOLUME 10.9 fL (7.4-10.4); MONOCYTES 4.3 % (2-11); NEUTROPHILS 92.5 % (40-80); RBC 2.98 10x6/uL (4.20-6.10); RDW 16.9 % (11.5-14.5); WBC 17.1 10x3/uL (4.8-10.8)
[2018-03-02 04:10] LABS: MCV 90.9 fL (80.0-100.0); PLATELET COUNT 103 10x3/uL (130-400)
[2018-03-02 04:15] LABS: INR 1.2 (0.85-1.17); PROTIME 14.8 SECONDS (11.6-15.0)
[2018-03-02 04:24] LABS: ALBUMIN 1.9 g/dL (3.4-5.0); ANION GAP 22.4 mmol/L (8-16); BILIRUBIN - TOTAL 0.68 mg/dL (0.2-1.3); CARBON DIOXIDE 23.2 mmol/L (21.0-32.0); MAGNESIUM - SERUM 1.9 mg/dL (1.8-2.4); PHOSPHOROUS 6.6 mg/dL (2.5-4.9); POTASSIUM - SERUM 5.6 mmol/L (3.5-5.1); PROTEIN - SERUM 5.3 g/dL (6.4-8.2); TROPONIN-I 0.046 ng/mL (0.000-0.060); VANCOMYCIN - RANDOM 18.4 ug/mL (10.0-20.0)
[2018-03-02 04:26] LABS: CREATININE - SERUM 4.4 mg/dL (0.6-1.3)
[2018-03-02 17:50] LABS: ANION GAP 19.4 mmol/L (8-16); CARBON DIOXIDE 22.1 mmol/L (21.0-32.0); CREATININE - SERUM 4.9 mg/dL (0.6-1.3); POTASSIUM - SERUM 5.5 mmol/L (3.5-5.1)
[2018-03-03] VITALS (24 sets, daily range): BP systolic 94–165; BP diastolic 54–132
[2018-03-03 05:16] LABS: ALBUMIN 2.2 g/dL (3.4-5.0); ANION GAP 17.1 mmol/L (8-16); BILIRUBIN - TOTAL 0.56 mg/dL (0.2-1.3); CARBON DIOXIDE 23.3 mmol/L (21.0-32.0); CREATININE - SERUM 5.3 mg/dL (0.6-1.3); PHOSPHOROUS 7.7 mg/dL (2.5-4.9); POTASSIUM - SERUM 5.4 mmol/L (3.5-5.1); PROTEIN - SERUM 5.7 g/dL (6.4-8.2); VANCOMYCIN - RANDOM 15.6 ug/mL (10.0-20.0)
[2018-03-03 05:23] LABS: BASOPHILS 0.2 % (0-2); EOSINOPHILS 0 % (0-7); HEMOGLOBIN 8.7 g/dL (13.5-17.5); IMMATURE GRANULOCYTES 1.5 % (0-5); LYMPHOCYTES 2.6 % (15-50); MCH 29.7 pg (26.0-34.0); MCHC 32.2 g/dL (31.0-37.0); MCV 92.2 fL (80.0-100.0); MEAN PLATELET VOLUME 11.3 fL (7.4-10.4); MONOCYTES 5.3 % (2-11); NEUTROPHILS 90.4 % (40-80); PLATELET COUNT 84 10x3/uL (130-400); RBC 2.93 10x6/uL (4.20-6.10); RDW 17.5 % (11.5-14.5); WBC 14.9 10x3/uL (4.8-10.8)
[2018-03-03 05:25] LABS: CALCIUM 6.9 mg/dL (8.5-10.1)
[2018-03-03 06:54] LABS: PLATELET ESTIMATE NORMAL
[2018-03-03 18:11] LABS: HEPATITIS C ANTIBODY <0.1 (0.0-0.9)
[2018-03-04] VITALS (25 sets, daily range): BP systolic 103–136; BP diastolic 61–81
[2018-03-04 04:57] LABS: BASOPHILS 0.2 % (0-2); EOSINOPHILS 0 % (0-7); HEMATOCRIT 24.4 % (42.0-54.0); HEMOGLOBIN 8.2 g/dL (13.5-17.5); IMMATURE GRANULOCYTES 4.2 % (0-5); LYMPHOCYTES 4.3 % (15-50); MCHC 33.6 g/dL (31.0-37.0); MCV 89.4 fL (80.0-100.0); MEAN PLATELET VOLUME 10.7 fL (7.4-10.4); MONOCYTES 6.3 % (2-11); PLATELET COUNT 69 10x3/uL (130-400); RBC 2.73 10x6/uL (4.20-6.10); WBC 9.8 10x3/uL (4.8-10.8)
[2018-03-04 05:19] LABS: ALBUMIN 2.3 g/dL (3.4-5.0); ANION GAP 19.2 mmol/L (8-16); BILIRUBIN - TOTAL 0.54 mg/dL (0.2-1.3); CALCIUM 7.4 mg/dL (8.5-10.1); CARBON DIOXIDE 23.8 mmol/L (21.0-32.0); CREATININE - SERUM 5.8 mg/dL (0.6-1.3); PROTEIN - SERUM 5.5 g/dL (6.4-8.2); VANCOMYCIN - RANDOM 20.1 ug/mL (10.0-20.0)
[2018-03-05] VITALS (26 sets, daily range): BP systolic 87–137; BP diastolic 49–87
[2018-03-05 04:55] LABS: BASOPHILS 0.3 % (0-2); EOSINOPHILS 0 % (0-7); HEMATOCRIT 28.8 % (42.0-54.0); HEMOGLOBIN 9.6 g/dL (13.5-17.5); IMMATURE GRANULOCYTES 5.3 % (0-5); MCH 29.4 pg (26.0-34.0); MCHC 33.3 g/dL (31.0-37.0); MCV 88.3 fL (80.0-100.0); MONOCYTES 2.9 % (2-11); NEUTROPHILS 84.5 % (40-80); PLATELET COUNT 77 10x3/uL (130-400); RBC 3.26 10x6/uL (4.20-6.10); RDW 16.5 % (11.5-14.5); WBC 10.4 10x3/uL (4.8-10.8)
[2018-03-05 05:36] LABS: ALBUMIN 2.3 g/dL (3.4-5.0); ANION GAP 16.4 mmol/L (8-16); BILIRUBIN - TOTAL 0.61 mg/dL (0.2-1.3); CALCIUM 7.8 mg/dL (8.5-10.1); CREATININE - SERUM 4.7 mg/dL (0.6-1.3); PHOSPHOROUS 6.7 mg/dL (2.5-4.9); POTASSIUM - SERUM 4.4 mmol/L (3.5-5.1); PROTEIN - SERUM 5.4 g/dL (6.4-8.2); VANCOMYCIN - RANDOM 23.6 ug/mL (10.0-20.0)
[2018-03-05 09:44] LABS: APTT 31.4 SECONDS (22.8-39.4); INR 1.23 (0.85-1.17); PROTIME 15.1 SECONDS (11.6-15.0)
[2018-03-06] VITALS (24 sets, daily range): BP systolic 98–142; BP diastolic 59–87
[2018-03-06 05:07] LABS: BASOPHILS 0.4 % (0-2); EOSINOPHILS 0 % (0-7); HEMATOCRIT 27.3 % (42.0-54.0); HEMOGLOBIN 9.1 g/dL (13.5-17.5); IMMATURE GRANULOCYTES 6.6 % (0-5); LYMPHOCYTES 6.6 % (15-50); MCH 29.4 pg (26.0-34.0); MCHC 33.3 g/dL (31.0-37.0); MCV 88.3 fL (80.0-100.0); MEAN PLATELET VOLUME 10.9 fL (7.4-10.4); MONOCYTES 1.9 % (2-11); NEUTROPHILS 84.5 % (40-80); PLATELET COUNT 75 10x3/uL (130-400); RBC 3.09 10x6/uL (4.20-6.10); RDW 16.2 % (11.5-14.5); WBC 11.4 10x3/uL (4.8-10.8)
[2018-03-06 05:20] LABS: PHOSPHOROUS 6.3 mg/dL (2.5-4.9); VANCOMYCIN - RANDOM 17.1 ug/mL (10.0-20.0)
[2018-03-06 07:17] LABS: ANION GAP 15.3 mmol/L (8-16); CARBON DIOXIDE 28.1 mmol/L (21.0-32.0); CREATININE - SERUM 3.8 mg/dL (0.6-1.3); POTASSIUM - SERUM 4.4 mmol/L (3.5-5.1)
[2018-03-07] VITALS (25 sets, daily range): BP systolic 83–130; BP diastolic 55–87
[2018-03-07 05:28] LABS: BASOPHILS 0.2 % (0-2); EOSINOPHILS 0 % (0-7); HEMATOCRIT 26.9 % (42.0-54.0); HEMOGLOBIN 9.1 g/dL (13.5-17.5); MCH 29.4 pg (26.0-34.0); MCHC 33.8 g/dL (31.0-37.0); MCV 87.1 fL (80.0-100.0); MEAN PLATELET VOLUME 10.6 fL (7.4-10.4); MONOCYTES 5.3 % (2-11); NEUTROPHILS 82.5 % (40-80); PLATELET COUNT 81 10x3/uL (130-400); RBC 3.09 10x6/uL (4.20-6.10); RDW 16.1 % (11.5-14.5); WBC 8.8 10x3/uL (4.8-10.8)
[2018-03-07 05:46] LABS: ANION GAP 18.6 mmol/L (8-16); CALCIUM 8.5 mg/dL (8.5-10.1); CARBON DIOXIDE 27.8 mmol/L (21.0-32.0); CREATININE - SERUM 4.4 mg/dL (0.6-1.3); POTASSIUM - SERUM 4.4 mmol/L (3.5-5.1); VANCOMYCIN - RANDOM 23.9 ug/mL (10.0-20.0)
[2018-03-07 05:51] LABS: PHOSPHOROUS 8.5 mg/dL (2.5-4.9)
[2018-03-08] VITALS (26 sets, daily range): BP systolic 94–134; BP diastolic 51–77
[2018-03-08 04:46] LABS: BASOPHILS 0.1 % (0-2); EOSINOPHILS 0 % (0-7); HEMATOCRIT 29.6 % (42.0-54.0); HEMOGLOBIN 9.8 g/dL (13.5-17.5); IMMATURE GRANULOCYTES 2.9 % (0-5); LYMPHOCYTES 4.8 % (15-50); MCH 29.1 pg (26.0-34.0); MCHC 33.1 g/dL (31.0-37.0); MCV 87.8 fL (80.0-100.0); MEAN PLATELET VOLUME 10.9 fL (7.4-10.4); NEUTROPHILS 89.2 % (40-80); PLATELET COUNT 96 10x3/uL (130-400); RBC 3.37 10x6/uL (4.20-6.10); WBC 10.4 10x3/uL (4.8-10.8)
[2018-03-08 05:01] LABS: ALBUMIN 2.2 g/dL (3.4-5.0); ANION GAP 14.5 mmol/L (8-16); BILIRUBIN - TOTAL 0.63 mg/dL (0.2-1.3); CALCIUM 8.3 mg/dL (8.5-10.1); CARBON DIOXIDE 29.6 mmol/L (21.0-32.0); CREATININE - SERUM 3.7 mg/dL (0.6-1.3); MAGNESIUM - SERUM 1.9 mg/dL (1.8-2.4); PHOSPHOROUS 8.2 mg/dL (2.5-4.9); POTASSIUM - SERUM 4.1 mmol/L (3.5-5.1); PROTEIN - SERUM 5.2 g/dL (6.4-8.2)
[2018-03-08 17:07] LABS: AEROBE ID Final report (()); RESULT 1 Escherichia coli (())
[2018-03-09] VITALS (25 sets, daily range): BP systolic 99–120; BP diastolic 57–81
[2018-03-09 05:30] LABS: BASOPHILS 0.1 % (0-2); EOSINOPHILS 0 % (0-7); HEMATOCRIT 31.4 % (42.0-54.0); HEMOGLOBIN 10.3 g/dL (13.5-17.5); IMMATURE GRANULOCYTES 1.8 % (0-5); LYMPHOCYTES 2.9 % (15-50); MCH 29.3 pg (26.0-34.0); MCHC 32.8 g/dL (31.0-37.0); MCV 89.5 fL (80.0-100.0); MEAN PLATELET VOLUME 11.7 fL (7.4-10.4); MONOCYTES 4.1 % (2-11); NEUTROPHILS 91.1 % (40-80); PLATELET COUNT 112 10x3/uL (130-400); RBC 3.51 10x6/uL (4.20-6.10); RDW 15.9 % (11.5-14.5); WBC 11.9 10x3/uL (4.8-10.8)
[2018-03-09 05:58] LABS: ALBUMIN 2.1 g/dL (3.4-5.0); ANION GAP 17.2 mmol/L (8-16); BILIRUBIN - TOTAL 0.6 mg/dL (0.2-1.3); CALCIUM 7.9 mg/dL (8.5-10.1); CREATININE - SERUM 4.4 mg/dL (0.6-1.3); POTASSIUM - SERUM 4.2 mmol/L (3.5-5.1); PROTEIN - SERUM 5.6 g/dL (6.4-8.2); VANCOMYCIN - RANDOM 18.5 ug/mL (10.0-20.0)
[2018-03-10] VITALS (24 sets, daily range): BP systolic 56–117; BP diastolic 40–78
[2018-03-10 01:18] LABS: MAGNESIUM - SERUM 1.9 mg/dL (1.8-2.4); VANCOMYCIN - RANDOM 23.9 ug/mL (10.0-20.0)
[2018-03-10 04:36] LABS: BASOPHILS 0.2 % (0-2); EOSINOPHILS 0 % (0-7); HEMATOCRIT 28.9 % (42.0-54.0); HEMOGLOBIN 9.6 g/dL (13.5-17.5); IMMATURE GRANULOCYTES 1.7 % (0-5); LYMPHOCYTES 2.9 % (15-50); MCH 29.5 pg (26.0-34.0); MCHC 33.2 g/dL (31.0-37.0); MCV 88.9 fL (80.0-100.0); MEAN PLATELET VOLUME 10.7 fL (7.4-10.4); MONOCYTES 3.1 % (2-11); NEUTROPHILS 92.1 % (40-80); PLATELET COUNT 105 10x3/uL (130-400); RBC 3.25 10x6/uL (4.20-6.10); RDW 15.8 % (11.5-14.5); WBC 13.1 10x3/uL (4.8-10.8)
[2018-03-10 05:18] LABS: ALBUMIN 1.9 g/dL (3.4-5.0); ANION GAP 20.2 mmol/L (8-16); BILIRUBIN - TOTAL 0.63 mg/dL (0.2-1.3); CALCIUM 7.6 mg/dL (8.5-10.1); CARBON DIOXIDE 25.4 mmol/L (21.0-32.0); CREATININE - SERUM 4.9 mg/dL (0.6-1.3); POTASSIUM - SERUM 4.6 mmol/L (3.5-5.1); PROTEIN - SERUM 5.2 g/dL (6.4-8.2)
[2018-03-10 05:26] LABS: PHOSPHOROUS 10.1 mg/dL (2.5-4.9)
[2018-03-11] VITALS (63 sets, daily range): BP systolic 60–145; BP diastolic 36–82
[2018-03-11 04:53] LABS: BASOPHILS 0.1 % (0-2); EOSINOPHILS 0 % (0-7); HEMATOCRIT 28.2 % (42.0-54.0); HEMOGLOBIN 9.3 g/dL (13.5-17.5); IMMATURE GRANULOCYTES 1.4 % (0-5); MCH 29.4 pg (26.0-34.0); MCV 89.2 fL (80.0-100.0); MEAN PLATELET VOLUME 11.1 fL (7.4-10.4); MONOCYTES 4.9 % (2-11); NEUTROPHILS 91.6 % (40-80); PLATELET COUNT 107 10x3/uL (130-400); RBC 3.16 10x6/uL (4.20-6.10); RDW 15.8 % (11.5-14.5); WBC 15.4 10x3/uL (4.8-10.8)
[2018-03-11 05:33] LABS: ANION GAP 18.1 mmol/L (8-16); BILIRUBIN - TOTAL 0.66 mg/dL (0.2-1.3); CALCIUM 7.4 mg/dL (8.5-10.1); CARBON DIOXIDE 25.4 mmol/L (21.0-32.0); POTASSIUM - SERUM 4.5 mmol/L (3.5-5.1); PROTEIN - SERUM 5.5 g/dL (6.4-8.2)
[2018-03-12] VITALS (77 sets, daily range): BP systolic 88–131; BP diastolic 48–82
[2018-03-12 03:02] LABS: BASOPHILS 0.1 % (0-2); EOSINOPHILS 0 % (0-7); HEMATOCRIT 27.5 % (42.0-54.0); HEMOGLOBIN 9.3 g/dL (13.5-17.5); IMMATURE GRANULOCYTES 1.7 % (0-5); LYMPHOCYTES 6.3 % (15-50); MCH 29.2 pg (26.0-34.0); MCHC 33.8 g/dL (31.0-37.0); MEAN PLATELET VOLUME 10.9 fL (7.4-10.4); MONOCYTES 7.5 % (2-11); NEUTROPHILS 84.4 % (40-80); RBC 3.18 10x6/uL (4.20-6.10); RDW 15.9 % (11.5-14.5); WBC 11.6 10x3/uL (4.8-10.8)
[2018-03-12 03:03] LABS: MCV 86.5 fL (80.0-100.0); PLATELET COUNT 129 10x3/uL (130-400)
[2018-03-12 03:20] LABS: ANION GAP 20.1 mmol/L (8-16); BILIRUBIN - TOTAL 0.82 mg/dL (0.2-1.3); CALCIUM 7.9 mg/dL (8.5-10.1); CARBON DIOXIDE 24.4 mmol/L (21.0-32.0); CREATININE - SERUM 5.8 mg/dL (0.6-1.3); PHOSPHOROUS 9.5 mg/dL (2.5-4.9); POTASSIUM - SERUM 4.5 mmol/L (3.5-5.1); PROTEIN - SERUM 5.7 g/dL (6.4-8.2)
[2018-03-13] VITALS (27 sets, daily range): BP systolic 101–133; BP diastolic 50–71
[2018-03-13 05:06] LABS: BASOPHILS 0.3 % (0-2); EOSINOPHILS 0.3 % (0-7); HEMATOCRIT 24.1 % (42.0-54.0); IMMATURE GRANULOCYTES 1.8 % (0-5); LYMPHOCYTES 8.8 % (15-50); MCH 28.8 pg (26.0-34.0); MCHC 33.2 g/dL (31.0-37.0); MCV 86.7 fL (80.0-100.0); MEAN PLATELET VOLUME 11.2 fL (7.4-10.4); MONOCYTES 6.8 % (2-11); PLATELET COUNT 128 10x3/uL (130-400); RBC 2.78 10x6/uL (4.20-6.10); RDW 16.2 % (11.5-14.5)
[2018-03-13 05:13] LABS: WBC 7.2 10x3/uL (4.8-10.8)
[2018-03-13 05:21] LABS: ALBUMIN 1.7 g/dL (3.4-5.0); ANION GAP 15.8 mmol/L (8-16); BILIRUBIN - TOTAL 0.74 mg/dL (0.2-1.3); CALCIUM 7.6 mg/dL (8.5-10.1); CARBON DIOXIDE 25.3 mmol/L (21.0-32.0); CREATININE - SERUM 4.6 mg/dL (0.6-1.3); POTASSIUM - SERUM 4.1 mmol/L (3.5-5.1); PROTEIN - SERUM 5.4 g/dL (6.4-8.2); VANCOMYCIN - RANDOM 17.8 ug/mL (10.0-20.0)
[2018-03-13 12:17] LABS: FUNGUS STAIN Final report (())
[2018-03-13 16:16] LABS: ACID FAST SMEAR Negative (()); AFB SPECIMEN PROCESSING Concentration (())
[2018-03-14] VITALS (22 sets, daily range): BP systolic 97–136; BP diastolic 52–87
[2018-03-14 04:57] LABS: BASOPHILS 0.1 % (0-2); EOSINOPHILS 0 % (0-7); IMMATURE GRANULOCYTES 2.6 % (0-5); LYMPHOCYTES 7.3 % (15-50); MCH 29.2 pg (26.0-34.0); MCHC 33.3 g/dL (31.0-37.0); MCV 87.6 fL (80.0-100.0); MEAN PLATELET VOLUME 10.7 fL (7.4-10.4); MONOCYTES 8.4 % (2-11); NEUTROPHILS 81.6 % (40-80); RBC 2.74 10x6/uL (4.20-6.10); RDW 15.9 % (11.5-14.5); WBC 6.8 10x3/uL (4.8-10.8)
[2018-03-14 05:01] LABS: PLATELET COUNT 157 10x3/uL (130-400)
[2018-03-14 05:11] LABS: ALBUMIN 1.7 g/dL (3.4-5.0); BILIRUBIN - TOTAL 0.72 mg/dL (0.2-1.3); CALCIUM 7.6 mg/dL (8.5-10.1); CARBON DIOXIDE 22.4 mmol/L (21.0-32.0); CREATININE - SERUM 5.3 mg/dL (0.6-1.3); MAGNESIUM - SERUM 1.9 mg/dL (1.8-2.4); PHOSPHOROUS 8.4 mg/dL (2.5-4.9); POTASSIUM - SERUM 4.4 mmol/L (3.5-5.1); PROTEIN - SERUM 5.4 g/dL (6.4-8.2); VANCOMYCIN - RANDOM 25.8 ug/mL (10.0-20.0)
[2018-03-15] VITALS (25 sets, daily range): BP systolic 98–160; BP diastolic 49–100
[2018-03-15 04:19] LABS: BASOPHILS 0.2 % (0-2); EOSINOPHILS 0.2 % (0-7); HEMATOCRIT 23.4 % (42.0-54.0); HEMOGLOBIN 7.8 g/dL (13.5-17.5); IMMATURE GRANULOCYTES 4.8 % (0-5); LYMPHOCYTES 10.1 % (15-50); MCHC 33.3 g/dL (31.0-37.0); MEAN PLATELET VOLUME 10.3 fL (7.4-10.4); MONOCYTES 10.6 % (2-11); NEUTROPHILS 74.1 % (40-80); PLATELET COUNT 151 10x3/uL (130-400); RBC 2.69 10x6/uL (4.20-6.10); RDW 15.8 % (11.5-14.5); WBC 6.4 10x3/uL (4.8-10.8)
[2018-03-15 04:41] LABS: ALBUMIN 1.9 g/dL (3.4-5.0); ANION GAP 15.7 mmol/L (8-16); BILIRUBIN - TOTAL 0.58 mg/dL (0.2-1.3); CALCIUM 7.9 mg/dL (8.5-10.1); CARBON DIOXIDE 26.1 mmol/L (21.0-32.0); CREATININE - SERUM 4.5 mg/dL (0.6-1.3); POTASSIUM - SERUM 3.8 mmol/L (3.5-5.1); PROTEIN - SERUM 5.5 g/dL (6.4-8.2); VANCOMYCIN - RANDOM 21.5 ug/mL (10.0-20.0)
[2018-03-16] VITALS (27 sets, daily range): BP systolic 99–146; BP diastolic 52–78
[2018-03-16 02:10] LABS: APPEARANCE CLOUDY (CLEAR); BACTERIA NONE SEEN /hpf (NONE SEEN); BILIRUBIN NEGATIVE (NEGATIVE); COLOR DK YELLOW (YELLOW); EPITHELIAL CELLS NSEEN /hpf (0-5); GLUCOSE NEGATIVE (NEGATIVE); KETONE NEGATIVE (NEGATIVE); NITRITE NEGATIVE (NEGATIVE); PROTEIN 1+ mg/dL (NEGATIVE); RED CELLS - URINE 0-5 /hpf (0-5); UROBILINOGEN NORMAL (NORMAL); YEAST <1+ /hpf (NONE SEEN)
[2018-03-16 04:38] LABS: BASOPHILS 0.2 % (0-2); EOSINOPHILS 0 % (0-7); HEMOGLOBIN 8.8 g/dL (13.5-17.5); IMMATURE GRANULOCYTES 5.1 % (0-5); LYMPHOCYTES 4.5 % (15-50); MCH 29.6 pg (26.0-34.0); MCHC 33.8 g/dL (31.0-37.0); MCV 87.5 fL (80.0-100.0); MEAN PLATELET VOLUME 10.3 fL (7.4-10.4); MONOCYTES 7.8 % (2-11); NEUTROPHILS 82.4 % (40-80); PLATELET COUNT 165 10x3/uL (130-400); RBC 2.97 10x6/uL (4.20-6.10); RDW 15.4 % (11.5-14.5)
[2018-03-16 04:53] LABS: WBC 10.4 10x3/uL (4.8-10.8)
[2018-03-16 05:03] LABS: ALBUMIN 2.2 g/dL (3.4-5.0); ANION GAP 19.1 mmol/L (8-16); BILIRUBIN - TOTAL 0.64 mg/dL (0.2-1.3); CALCIUM 7.6 mg/dL (8.5-10.1); CARBON DIOXIDE 24.1 mmol/L (21.0-32.0); CREATININE - SERUM 4.7 mg/dL (0.6-1.3); PHOSPHOROUS 7.4 mg/dL (2.5-4.9); POTASSIUM - SERUM 4.2 mmol/L (3.5-5.1); PROTEIN - SERUM 5.8 g/dL (6.4-8.2); VANCOMYCIN - RANDOM 20.6 ug/mL (10.0-20.0)
[2018-03-17] VITALS (23 sets, daily range): BP systolic 102–134; BP diastolic 54–83
[2018-03-17 04:41] LABS: BASOPHILS 0.3 % (0-2); EOSINOPHILS 0.2 % (0-7); HEMATOCRIT 27.1 % (42.0-54.0); HEMOGLOBIN 9.3 g/dL (13.5-17.5); IMMATURE GRANULOCYTES 7.5 % (0-5); LYMPHOCYTES 6.5 % (15-50); MCH 30.5 pg (26.0-34.0); MCHC 34.3 g/dL (31.0-37.0); MCV 88.9 fL (80.0-100.0); MEAN PLATELET VOLUME 10.2 fL (7.4-10.4); MONOCYTES 9.9 % (2-11); NEUTROPHILS 75.6 % (40-80); PLATELET COUNT 143 10x3/uL (130-400); RBC 3.05 10x6/uL (4.20-6.10); RDW 15.5 % (11.5-14.5); WBC 10.4 10x3/uL (4.8-10.8)
[2018-03-17 04:59] LABS: ALBUMIN 2.3 g/dL (3.4-5.0); ANION GAP 14.3 mmol/L (8-16); BILIRUBIN - TOTAL 0.62 mg/dL (0.2-1.3); CALCIUM 7.8 mg/dL (8.5-10.1); CARBON DIOXIDE 28.3 mmol/L (21.0-32.0); CREATININE - SERUM 3.9 mg/dL (0.6-1.3); POTASSIUM - SERUM 3.6 mmol/L (3.5-5.1); PROTEIN - SERUM 5.8 g/dL (6.4-8.2); VANCOMYCIN - RANDOM 16.1 ug/mL (10.0-20.0)
[2018-03-18] VITALS (11 sets, daily range): BP systolic 128–151; BP diastolic 63–102
[2018-03-18 04:01] LABS: BASOPHILS 0.2 % (0-2); EOSINOPHILS 0 % (0-7); HEMATOCRIT 26.3 % (42.0-54.0); HEMOGLOBIN 8.7 g/dL (13.5-17.5); IMMATURE GRANULOCYTES 5.8 % (0-5); LYMPHOCYTES 6.7 % (15-50); MCH 29.1 pg (26.0-34.0); MCHC 33.1 g/dL (31.0-37.0); MEAN PLATELET VOLUME 10.4 fL (7.4-10.4); MONOCYTES 6.9 % (2-11); NEUTROPHILS 80.4 % (40-80); PLATELET COUNT 130 10x3/uL (130-400); RBC 2.99 10x6/uL (4.20-6.10); RDW 15.3 % (11.5-14.5); WBC 12.1 10x3/uL (4.8-10.8)
[2018-03-18 04:33] LABS: ALBUMIN 2.2 g/dL (3.4-5.0); ANION GAP 17.7 mmol/L (8-16); BILIRUBIN - TOTAL 0.66 mg/dL (0.2-1.3); CALCIUM 8.1 mg/dL (8.5-10.1); CARBON DIOXIDE 26.1 mmol/L (21.0-32.0); CREATININE - SERUM 4.6 mg/dL (0.6-1.3); POTASSIUM - SERUM 3.8 mmol/L (3.5-5.1); PROTEIN - SERUM 5.5 g/dL (6.4-8.2); VANCOMYCIN - RANDOM 18.8 ug/mL (10.0-20.0)
[2018-03-18 14:22] LABS: FUNGUS CULTURE RESULT 1 Candida glabrata (())
[2018-04-09 11:20] LABS: FUNGUS MYCOLOGY CULTURE Final report (())
== END 2018-03-18 15:28 | disposition hospice, inpatient (51) | DRG 3 ==
LOC: D.ER 05:02 → D.ICU 07:44 → D.M2 07:44 → D.SDCHOLD 02-22 13:20 → D.M2 02-22 13:20 → D.SDCHOLD 02-22 13:21 → D.ICU 02-27 22:30
PROVIDERS: Family Medicine; General Practice; Internal Medicine; Internal Medicine Gastroenterology; Internal Medicine Hematology & Oncology; Internal Medicine Nephrology; Internal Medicine Pulmonary Disease; Radiology Diagnostic Radiology; Surgery
PROC: 0FN44ZZ Release Gallbladder, Percutaneous Endoscopic Approach (ICD-10-PCS; 2018-02-21)
PROC: 0FT44ZZ Resection of Gallbladder, Percutaneous Endoscopic Approach (ICD-10-PCS; principal; 2018-02-21 08:00)
PROC: 0BBC3ZX Excision of Right Upper Lung Lobe, Percutaneous Approach, Diagnostic (ICD-10-PCS; 2018-02-23)
PROC: 02HV33Z Insertion of Infusion Device into Superior Vena Cava, Percutaneous Approach (ICD-10-PCS; 2018-02-28)
PROC: B548ZZA Ultrasonography of Superior Vena Cava, Guidance (ICD-10-PCS; 2018-02-28)
PROC: 5A1955Z Respiratory Ventilation, Greater than 96 Consecutive Hours (ICD-10-PCS; 2018-03-01)
PROC: 0BH17EZ Insertion of Endotracheal Airway into Trachea, Via Natural or Artificial Opening (ICD-10-PCS; 2018-03-01)
PROC: 0F7C8DZ Dilation of Ampulla of Vater with Intraluminal Device, Via Natural or Artificial Opening Endoscopic (ICD-10-PCS; 2018-03-02)
PROC: 02HV33Z Insertion of Infusion Device into Superior Vena Cava, Percutaneous Approach (ICD-10-PCS; 2018-03-03)
PROC: 0DH63UZ Insertion of Feeding Device into Stomach, Percutaneous Approach (ICD-10-PCS; 2018-03-11)
PROC: 0BC98ZZ Extirpation of Matter from Lingula Bronchus, Via Natural or Artificial Opening Endoscopic (ICD-10-PCS; 2018-03-12)
PROC: 0BC48ZZ Extirpation of Matter from Right Upper Lobe Bronchus, Via Natural or Artificial Opening Endoscopic (ICD-10-PCS; 2018-03-12)
PROC: 0BC88ZZ Extirpation of Matter from Left Upper Lobe Bronchus, Via Natural or Artificial Opening Endoscopic (ICD-10-PCS; 2018-03-12)
PROC: 0BC58ZZ Extirpation of Matter from Right Middle Lobe Bronchus, Via Natural or Artificial Opening Endoscopic (ICD-10-PCS; 2018-03-12)
PROC: 0BC38ZZ Extirpation of Matter from Right Main Bronchus, Via Natural or Artificial Opening Endoscopic (ICD-10-PCS; 2018-03-12)
PROC: 0BC78ZZ Extirpation of Matter from Left Main Bronchus, Via Natural or Artificial Opening Endoscopic (ICD-10-PCS; 2018-03-12)
PROC: 0BC68ZZ Extirpation of Matter from Right Lower Lobe Bronchus, Via Natural or Artificial Opening Endoscopic (ICD-10-PCS; 2018-03-12)
PROC: 0BCB8ZZ Extirpation of Matter from Left Lower Lobe Bronchus, Via Natural or Artificial Opening Endoscopic (ICD-10-PCS; 2018-03-12)
PROC: 0B113F4 Bypass Trachea to Cutaneous with Tracheostomy Device, Percutaneous Approach (ICD-10-PCS; 2018-03-16)
DX: K81.0 Acute cholecystitis (principal); J96.21 Acute and chronic respiratory failure with hypoxia; I50.33 Acute on chronic diastolic (congestive) heart failure; E43 Unspecified severe protein-calorie malnutrition; A41.9 Sepsis, unspecified organism; R65.21 Severe sepsis with septic shock; J15.211 Pneumonia due to Methicillin susceptible Staphylococcus aureus; K83.1 Obstruction of bile duct; N17.0 Acute kidney failure with tubular necrosis; J96.22 Acute and chronic respiratory failure with hypercapnia; J90 Pleural effusion, not elsewhere classified; F17.203 Nicotine dependence unspecified, with withdrawal; C34.11 Malignant neoplasm of upper lobe, right bronchus or lung; A04.8 Other specified bacterial intestinal infections; K91.89 Other postprocedural complications and disorders of digestive system; R91.8 Other nonspecific abnormal finding of lung field; G47.33 Obstructive sleep apnea (adult) (pediatric); Z99.81 Dependence on supplemental oxygen; D64.9 Anemia, unspecified; Z68.29 Body mass index [BMI] 29.0-29.9, adult; I48.91 Unspecified atrial fibrillation; E88.09 Other disorders of plasma-protein metabolism, not elsewhere classified; E87.5 Hyperkalemia; E83.39 Other disorders of phosphorus metabolism; J43.9 Emphysema, unspecified

== ENCOUNTER 2018-03-18 15:41 | Inpatient (IN) | payer OTHER ==
[~2018-03-18] VITALS: Ht 177.8 cm; Wt 122.3 kg
[~2018-03-18 15:41] MED LIST changes: +LEVAQUIN250 MG PO
[2018-03-18 15:55] VITALS: BP 129/65; Ht 177.8 cm; Wt 122.3 kg
== END 2018-03-18 18:50 | DRG 951 ==
LOC: D.ICU 15:41
DX: Z51.5 Encounter for palliative care (principal)